=== PATIENT | female | born 1955 | race Caucasian/White ===

== ENCOUNTER → 2016-07-21 | Outpatient (CLI) | payer OTHER ==
[~2016-07-21] MED LIST: BISO5TAB5 PO; CLAR10CA3 PO; COUM2.5T11 PO; LISI-542 PO; LYRI75CA PO; NASA1SPR; OMEP40CA2 PO; PERC5TAB6 PO; TYLE325T5 PO
[2016-07-21 18:21] LABS: ANION GAP 10 MEQ/L (8-16); BLOOD UREA NITROGEN 12 MG/DL (7-18); CALCIUM LEVEL 9.7 MG/DL (8.5-10.1); CARBON DIOXIDE LEVEL 28 MEQ/L (21-32); CHLORIDE LEVEL 101 MEQ/L (98-107); CREATININE FOR GFR 0.74 MG/DL (0.55-1.02); GLOMERULAR FILTRATION RATE > 60.0 (>51); GLUCOSE, FASTING 109 MG/DL (70-105); POTASSIUM SERUM 4.6 MEQ/L (3.5-5.1); SODIUM LEVEL 139 MEQ/L (136-145)
== END ==
LOC: M SMT 14:06
PROVIDERS: ATTEND Nurse Practitioner Family
DX: I10 Essential (primary) hypertension (principal)

== ENCOUNTER → 2016-08-09 | Outpatient (CLI) | payer OTHER ==
--- NOTE | 2016-08-09 15:21 | REP ---
Clinical: Lung screening. History smoking. Comparison: None Technique: Axial low-dose noncontrast images from the thoracic inlet to the upper abdomen using lung screening technique. Findings: The lung feliciano are well-aerated. There is a 9.0 mm solid nodule in the left lower lobe (image [id number]). Remainder of lung feliciano are relatively well aerated and clear. No pleural effusion/reaction or pneumothorax. Tracheobronchial tree is patent. Mediastinum demonstrates minimal atherosclerotic changes of the coronary arteries without cardiomegaly. Impression: Lung-RADS category 4A. There is a 9 mm solid nodule in the left lower lobe. Suggestions for management include 3-month follow-up and/or PET-CT. Signed by Jay Paredes MD 08/09/2016 03:13 P
== END ==
LOC: M RAD 14:14
PROVIDERS: ATTEND Nurse Practitioner Family
DX: Z87.891 Personal history of nicotine dependence (principal)

== ENCOUNTER → 2016-08-11 | Outpatient (REF) | payer OTHER ==
[2016-08-11 15:25] LABS: INR 1.02
== END ==
LOC: M LAB REF 14:11
PROVIDERS: ATTEND Internal Medicine Pulmonary Disease
DX: R91.1 Solitary pulmonary nodule (principal); Z01.812 Encounter for preprocedural laboratory examination

== ENCOUNTER 2016-08-25 07:57 | Inpatient (IN) | payer OTHER ==
[~2016-08-25] VITALS: Ht 162.6 cm; Wt 101.4 kg
[2016-08-25] VITALS (7 sets, daily range): BP systolic 110–132; BP diastolic 53–61
[2016-08-25] MEDS ORDERED: LIDOCAINE 1% MDV 20ML VIAL As Ordered ONE ×2 (08:42→10:51)
[2016-08-25] MEDS: MOM 30ML SUSPENSION UDC PO SCH (09:00)
[2016-08-25] MEDS ORDERED: MORPHINE 10 MG/ML 1ML VIAL As Ordered ONE (10:23)
[2016-08-25] MEDS ORDERED: MORPHINE 2 MG/ML 1ML SYRINGE IV ONE (10:23)
[2016-08-25] MEDS ORDERED: ONDANSETRON 4MG/2ML VIAL (J2405) As Ordered ONE (10:31)
[2016-08-25] MEDS ORDERED: ONDANSETRON 4MG/2ML VIAL (J2405) IV ONE (10:31)
[2016-08-25] MEDS ORDERED: MIDAZOLAM INJ 2 MG/2 ML VIAL (J2250) As Ordered ONE ×2 (10:37→10:42)
[2016-08-25] MEDS ORDERED: KETOROLAC 30 MG/ML VIAL (J1885) As Ordered ONE (11:00)
--- NOTE | 2016-08-25 13:30 | REP ---
POST BIOPSY CHEST: Single view of the chest is performed. The patient is status post left lung biopsy. There is a fairly large left pneumothorax. The air gap at the apex is 5 cm. Signed by Titi Horn MD 08/26/2016 03:14 P
[2016-08-25] MEDS ORDERED: BISACODYL 10 MG SUPP PR PRN (13:45)
[2016-08-25] MEDS ORDERED: LEVALBUTEROL 1.25 MG/0.5 ML CONCENTRATE NEB NEB PRN (13:45)
[2016-08-25] MEDS ORDERED: ACETAMINOPHEN TAB 650MG DOSE (2X325MG) PO PRN (13:45)
[2016-08-25] MEDS ORDERED: ONDANSETRON 4MG/2ML VIAL (J2405) IV PRN (13:45)
[2016-08-25] MEDS ORDERED: NORCO, ANEXSIA 5/325MG TABLET (HYDROcodone/ACETAMINOPHEN) PO PRN (13:45)
[2016-08-25] MEDS: LEVALBUTEROL 1.25 MG/0.5 ML CONCENTRATE NEB NEB SCH ×2 (14:00→19:15)
[2016-08-25] MEDS ORDERED: AZEL0.1S3 (14:08)
[2016-08-25] MEDS ORDERED: LISI10TA4 PO (14:08)
[2016-08-25] MEDS ORDERED: DRIS50002 PO (14:09)
[2016-08-25] MEDS ORDERED: CALC0.009 TOP (14:11)
[2016-08-25] MEDS ORDERED: CLOB0.77 TOP (14:11)
[2016-08-25] MEDS ORDERED: CLOB-24 TOP (14:11)
[2016-08-25] MEDS: PERCOCET 5MG/325MG TAB PO PRN ×2 (14:20→20:42)
--- NOTE | 2016-08-25 14:33 | REP ---
Portable chest: Single view. History: Postoperative. CT biopsy. Post chest tube insertion. Comparison study: August 25, 2016 at 10:14 a.m. Findings: The left-sided pneumothorax has resolved post left chest tube placement. The left chest tube is seen in the upper lung zone region. There is no visible pneumothorax. No hydrothorax is seen. Heart size is normal. EKG electrodes are seen. Impression: Left-sided pneumothorax is resolved post left chest tube placement. Signed by Mohan Hsu MD 08/25/2016 03:43 P
--- NOTE | 2016-08-25 16:35 | REP ---
CT GUIDED LEFT LOWER LOBE LUNG BIOPSY: The procedure was performed under the direct supervision of Dr. Horn. The patient has a history of a 9 mm solid nodule in the left lower lobe seen on a previous CAT scan dated 07/20/2016. The risks and benefits of the procedure were explained to the patient and informed consent was obtained. The left lower lobe lung nodule was localized using CT guidance. The skin was prepped and draped in a sterile fashion. 1% Xylocaine was used as a local anesthetic. Using CT guidance a 19/20-gauge coaxial needle biopsy system was inserted and advanced to the nodule. The patient developed a left pneumothorax. The nodule fell away from the needle and therefore a biopsy sample was not able to be obtained. As much air as possible was aspirated from the pleural space. The patient was placed on 2 liters of oxygen via nasal cannula. Followup CT images show some improvement in the pneumothorax. The patient did complain of pain at a level of 9/10. Her oxygen saturation was 98% before being placed on oxygen and were 100% after being placed on 2 liters of oxygen. A single view PA expiration chest x-ray was performed immediately after the procedure shows a fairly large left pneumothorax. Dr. Cardoso was consulted. Dr. Cardoso came to the department and placed a chest tube into the patient. The patient was then admitted under Dr. Cardoso's care. Reviewed by FEDERICO Disla 08/25/2016 05:05 PEdited and Signed by Titi Horn MD 08/26/2016 03:31 P
[2016-08-25 16:53] LABS: MEAN CORPUSCULAR HEMOGLOBIN 28.1 pg (27.0-33.0); MEAN CORPUSCULAR HGB CONC 33.2 g/dl (32.0-36.5); MEAN CORPUSCULAR VOLUME 84.6 fl (80.0-96.0); RED CELL DISTRIBUTION WIDTH 13.6 % (11.5-14.5); WHITE BLOOD COUNT 10.2 K/mm3 (4.0-10.0)
[2016-08-25] MEDS: KETOROLAC 30 MG/ML VIAL (J1885) IV SCH (17:06)
[2016-08-25 17:23] LABS: ANION GAP 7 MEQ/L (8-16); BLOOD UREA NITROGEN 10 MG/DL (7-18); CALCIUM LEVEL 8.8 MG/DL (8.5-10.1); CARBON DIOXIDE LEVEL 27 MEQ/L (21-32); CHLORIDE LEVEL 105 MEQ/L (98-107); CREATININE FOR GFR 0.74 MG/DL (0.55-1.02); GLOMERULAR FILTRATION RATE > 60.0 (>51); GLUCOSE, FASTING 128 MG/DL (70-105); POTASSIUM SERUM 4.2 MEQ/L (3.5-5.1); SODIUM LEVEL 139 MEQ/L (136-145)
[2016-08-25] MEDS: DOCUSATE SODIUM 100 MG CAP PO SCH (20:40)
[2016-08-25] MEDS: HEPARIN SOD (PORCINE) 5000 UNITS/ML VIAL SC SCH (20:41)
--- NOTE | 2016-08-25 21:07 | HPE ---
DATE OF ADMISSION: 08/25/2016 Patient seen at the urgent request of x-ray for a pneumothorax status post a lung needle biopsy. HISTORY OF THE PRESENT ILLNESS: This is a 61-year-old white female who underwent a low dose screening early lung cancer detection CT scan and was found to have a 1 cm nodule in the left lower lobe. Had she not undergone the low dose CT screening, she would not have known that there was a nodule within her chest. She does not complain of chest pain or chest discomfort. There has been no cough, no sputum production, and no fevers, chills or sweats. She has lost 25 pounds and trying to do so over the past year. There is no dysphagia, and there is no shortness of breath. She is able to do all the daily activities of daily living, including shopping without getting short of breath. She can also climb a flight of stairs. She is a former smoker, having quit approximately 11 years ago. A chest tube was immediately placed secondary to her shortness of breath and chest discomfort. History and physical is being done after the chest tube was placed. PAST MEDICAL ILLNESSES: Hypertension. Gastroesophageal reflux disease. Seasonal allergies. Psoriasis. PAST SURGERIES: Bilateral carpal tunnels. Left knee replacement. Hysterectomy in the remote past. MEDICATIONS AT HOME: - azelastine nasal spray, two sprays each naris daily - calcipotriene topical nightly to her psoriatic lesions - lisinopril 10 mg daily - ranitidine 10 mg as needed for congestion - omeprazole 40 mg daily - vitamin D 50,000 units every week ALLERGIES: AMOXICILLIN causes nausea. MELOXICAM causing hypertension. PENICILLIN causing hives. TRAVEL HISTORY: She has traveled to [place]. No travel to the [facility] or foreign travel. 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 No asbestos exposure that she knows of. EXPOSURES: No dogs, cats or birds at home. She did have two dogs, which are now - a Husky and a Black Lab. HABITS: Smoked 1 to 1-1/2 packs a day of [employer] for over 30 years. Drinks only very occasionally. No illicit drugs. FAMILY HISTORY: Father of a myocardial infarction prior to her . Mother is alive at 89, who has had breast cancer and hypertension. REVIEW OF SYSTEMS: CONSTITUTIONAL: See history of the present illness. Without fevers, chills, sweats or night sweats NOSE: Without epistaxis. MOUTH: Has her own teeth. RESPIRATORY: See history of the present illness. CARDIAC: Without prior myocardial infarctions. Without true orthopnea or paroxysmal nocturnal dyspnea, although she does sleep with the head of her bed elevated for comfort. She does not become short of breath lying flat. Without tachycardia, palpitations or intermittent claudication, or peripheral edema. GASTROINTESTINAL: Without nausea, vomiting, diarrhea, constipation, melena, hematochezia, hematemesis or abdominal pain. NEUROLOGIC: Without paresthesias, paralyses or prior seizures. ENDOCRINE: Without diabetes. Without thyroid disease. HEMATOLOGIC: Without prolonged bleeding times. GENITOURINARY: Without dysuria, hematuria or prior renal stones. PSYCHIATRIC: Without pathological anxieties, depressions or psychoses. PHYSICAL EXAMINATION: Well-developed, well-nourished white female in acute distress with shortness of breath and pain. Temperature is 99.9 with a heart rate of 90 and is sinus rhythm, respiratory rate of 16 after placement of the chest tubes, who is now 100% saturated on 2 liters nasal cannula, and whose blood pressure is 122/60. EYES: Pupils equal, round and reactive to light. Extraocular muscles are intact. Sclerae nonicteric. NOSE: Without deformity. MOUTH: Shows her mucous membranes to be pink and moist. Lips and commissures without lesions. There is no thrush. Teeth are in good repair. HEAD: Normocephalic. NECK: Supple. There is no jugular venous distention. No subcutaneous emphysema. Trachea is midline. There is no lymphadenopathy or thyromegaly. LUNGS: Show markedly decreased breath sounds with wheezing on the left side prior to chest tube insertion and show normal vesicular sounds after the chest tube insertion. Percussion note is full to the diaphragm. CARDIAC EXAM: Without murmurs, clicks, gallops or rubs. I cannot feel her point of maximum impulse (PMI). S1, S2 normal. ABDOMEN: Soft, nontender. Bowel sounds are positive. There is no hepatomegaly. No costovertebral angle tenderness. EXTREMITIES: Show no pretibial edema. No calf tenderness. No differential swelling of the upper extremities. SKIN: Warm, dry and perfused without cyanosis or mottling, including that of the nail beds and the knees. NEUROLOGIC: Shows II-XII intact along with gross motor and gross sensation intact. Gait is not tested. PSYCHIATRIC: Shows her to be awake and alert, oriented times three with appropriate mood and affect and conversational. Her chest x-ray taken post-biopsy shows a 30-40% pneumothorax with a 5 cm separation from the chest wall. CT done on 08/09/2016 shows the 1 cm spiculated mass in the left lower lobe, She has numerous emphysematous changes throughout, particularly in the upper lobes. There is no pericardial effusion. There is no lymphadenopathy. Adrenals have a normal configuration as does the liver. CBC and electrolytes are pending. IMPRESSION: 1. Pneumothorax, status post lung biopsy. 2. Spiculated left lower lobe mass. 3. Psoriasis. 4. Hypertension. 5. Gastroesophageal reflux disease. PLAN AND DISCUSSION: I have already placed a chest tube. Will monitor for an air leak. I have spoken to x-ray and the lesion was not entered. Therefore, we will try again, now with her lung protected by chest tube. I will order that tomorrow. I will keep her on suction throughout the night and throughout her lung biopsy.
[2016-08-26] VITALS (13 sets, daily range): BP systolic 112–148; BP diastolic 53–81
[2016-08-26] MEDS: KETOROLAC 30 MG/ML VIAL (J1885) IV SCH ×4 (00:12→18:07)
[2016-08-26] MEDS: PERCOCET 5MG/325MG TAB PO PRN ×2 (00:14→20:44)
[2016-08-26] MEDS: LEVALBUTEROL 1.25 MG/0.5 ML CONCENTRATE NEB NEB SCH ×4 (02:00→21:02)
[2016-08-26 06:02] LABS: BASO % 0.2 % (0.0-1.0); EOS # 0.1 K/mm3 (0.0-0.50); EOS % 1.3 % (0.0-3.0); LARGE UNSTAINED CELL # 0.1 K/mm3 (0.0-0.4); LARGE UNSTAINED CELL % 1.2 % (0.0-4.0); LYMPH # 2.1 K/mm3 (1.5-4.5); LYMPH % 25.8 % (24.0-44.0); MEAN CORPUSCULAR HEMOGLOBIN 27.9 pg (27.0-33.0); MEAN CORPUSCULAR HGB CONC 32.4 g/dl (32.0-36.5); MONO # 0.4 K/mm3 (0.0-0.8); MONO % 4.9 % (0.0-5.0); NEUTROPHILS # 5.2 K/mm3 (1.8-7.7); NEUTROPHILS % 66.6 % (36.0-66.0); PLATELET COUNT, AUTOMATED 281 k/mm3 (150-450); RED CELL DISTRIBUTION WIDTH 13.7 % (11.5-14.5); WHITE BLOOD COUNT 7.8 K/mm3 (4.0-10.0)
[2016-08-26 06:10] LABS: ANION GAP 8 MEQ/L (8-16); BLOOD UREA NITROGEN 13 MG/DL (7-18); CALCIUM LEVEL 8.3 MG/DL (8.5-10.1); CARBON DIOXIDE LEVEL 27 MEQ/L (21-32); CHLORIDE LEVEL 104 MEQ/L (98-107); CREATININE FOR GFR 0.74 MG/DL (0.55-1.02); GLOMERULAR FILTRATION RATE > 60.0 (>51); GLUCOSE, FASTING 123 MG/DL (70-105); POTASSIUM SERUM 4.2 MEQ/L (3.5-5.1); SODIUM LEVEL 139 MEQ/L (136-145)
--- NOTE | 2016-08-26 08:36 | RO ---
DATE OF PROCEDURE: 08/25/2016 PREPROCEDURE DIAGNOSIS: Acute left pneumothorax. POSTPROCEDURE DIAGNOSIS: Acute left pneumothorax. PROCEDURE: Insertion of left anterior chest tube. SURGEON: Azam Cardoso MD LOSS PREVENTION CONSULTANT: ANESTHESIA: DESCRIPTION OF PROCEDURE: Under satisfactory moderate sedation achieved with 4 mg of Versed, the patient was prepped and draped in the usual sterile fashion. The subcutaneous tissue and intrathoracic muscles along with pleura were infiltrated with 1% xylocaine. A tunnel was created into the second intercostal space. A #20 chest tube was placed. The chest tube was secured to the chest wall with a #2 Tevdek suture. The chest tube was connected to the Pleur-evac. The patient tolerated the procedure well, and a chest x-ray is pending.
--- NOTE | 2016-08-26 08:52 | REP ---
Chest x-ray: Three views. History: Pneumothorax follow-up. Comparison study August 25, 2016. Findings: Left pleural chest tube remains in place superolaterally. There is no visible pneumothorax. Lung feliciano remain otherwise clear. Heart is not enlarged. Pleural angles are sharp. EKG monitoring electrodes overlie the chest. Impression: Left chest tube remains in place. No visible pneumothorax. Otherwise no acute disease seen. Signed by Mohan Hsu MD 08/26/2016 11:22 A
[2016-08-26] MEDS ORDERED: BISOPROLOL FUMARATE 5 MG TAB PO SCH (09:00)
[2016-08-26] MEDS ORDERED: PANTOPRAZOLE 40MG TAB (PROTONIX) PO SCH (09:00)
[2016-08-26] MEDS: DOCUSATE SODIUM 100 MG CAP PO SCH ×2 (09:00→20:44)
[2016-08-26] MEDS: MOM 30ML SUSPENSION UDC PO SCH (09:00)
[2016-08-26] MEDS: HEPARIN SOD (PORCINE) 5000 UNITS/ML VIAL SC SCH ×2 (09:00→20:45)
[2016-08-26] MEDS: PANTOPRAZOLE 40MG INJ (PROTONIX) (C9113) IV SCH (09:15)
[2016-08-26] MEDS: LISINOPRIL 10 MG TAB PO SCH (09:15)
[2016-08-26] MEDS ORDERED: SODIUM CHLORIDE NASAL 0.65% SPRAY BTL (OCEAN) PRN (09:45)
[2016-08-26] MEDS ORDERED: ALPRAZolam 0.25 MG TAB PO ONE (11:30)
[2016-08-26] MEDS ORDERED: LIDOCAINE 1% MDV 20ML VIAL As Ordered ONE (12:31)
--- NOTE | 2016-08-26 16:42 | REP ---
CT GUIDED LEFT LOWER LOBE LUNG BIOPSY: The procedure was performed under the direct supervision of Dr. Horn. The risks and benefits of the procedure were explained to the patient and informed consent was obtained. The patient has a history of a 9 mm solid nodule in the left lower lobe seen on a previous CAT scan dated 07/20/2016. An attempt was made to biopsy the nodule on 08/25/2016, however the patient developed a pneumothorax and the biopsy was not able to be obtained. Dr. Cardoso inserted the chest tube and referred the patient today for rebiopsy. The risks and benefits of the procedure were explained to the patient and informed consent was obtained. The left lower lobe lung nodule was localized using CT guidance. The skin was prepped and draped in a sterile fashion. 1% Xylocaine was used as a local anesthetic. Using CT guidance a 19/20-gauge coaxial needle biopsy system was inserted and then advanced into the nodule. 4 core biopsy samples were obtained and sent to the lab. The patient tolerated the procedure well and there were no immediate complications. Reviewed by FEDERICO Disla 08/26/2016 04:52 PEdited and Signed by Titi Horn MD 08/26/2016 04:57 P
--- NOTE | 2016-08-26 19:02 | IPN ---
DATE: 08/26/2016 Ms. Jaramillo is rather anxious this morning. We are planning to send her back down for a repeat needle biopsy with run being protected by the chest tube. Pain at chest tube site is being well controlled. VITAL SIGNS: Show a maximum temperature (T-max) of 98.0, with a heart rate that ranges between 85 and 91 in a sinus rhythm. Respiratory rate of 18-20 without the use of accessory muscles who is 98-96% saturated on room air. Blood pressure ranges between 127/58 to 148/78. Her intake and output over the past 24 hours has been recorded as 1045 in and 583 out for a positivity of 462 mL. She has put out 8 mL in the chest tube and there is no air leak. Weight today is 101.3 kg compared to 99.9 kg yesterday. PHYSICAL EXAMINATION: LUNGS: Breath sounds are equal on both sides. I hear no wheezes, rhonchi, or rales. Percussion note is full to the diaphragm. CARDIAC EXAMINATION: Is without murmurs, clicks, gallops, or rubs. I cannot feel her point of maximal impulse (PMI). S1, S2 are normal. ABDOMEN: Is soft, nontender. Bowel sounds are positive. There is no hepatomegaly. No costovertebral angle (CVA) tenderness. EXTREMITIES: Show no pretibial edema. No calf tenderness. No differential swelling of the upper extremities. SKIN: Is warm, dry, and perfused without cyanosis or mottling, including that of the nail beds and the knees. NECK: Is supple. There is no jugular venous distention. No subcutaneous emphysema. Tracheostomy is midline. MOUTH: Shows her mucous membranes to be pink and moist. Lips without commissure or lesions. There is no thrush. EYES: Show her pupils to be equal and reactive. Extraocular muscles intact. Sclerae nonicteric. NEUROLOGIC: Shows II-XII intact. Normal gross motor and gross sensation. Gait is not tested. PSYCHIATRIC: Shows her to be awake and alert, oriented times three with appropriate mood and affect and conversational but quite anxious regarding her upcoming biopsy. LABORATORY DATA: Her white count is 7.8 today with hemoglobin and hematocrit of 12.4 and 38.2 which is essentially unchanged from yesterday. Platelet count of 281 and stable. Differential shows 66% neutrophils, 25% lymphocytes, 4% monocytes. There are no immature forms. No toxic granulations. Electrolytes are normal with BUN and creatinine of 13 and 0.74, with a glucose of 123 and a calcium of 8.3. She still remains on Toradol. Her chest x-ray done today done PA and lateral shows her lung fully expanded to the chest wall. Chest tube is in good place. There is no subcutaneous emphysema. There are no infiltrates on the PA or lateral views and the costophrenic angles on the posterior films are sharp. IMPRESSION: 1. Pneumothorax status-post lung biopsy. 2. Spiculated left lower lobe mass. 3. Psoriasis. 4. Hypertension. 5. Gastroesophageal reflux disease. PLAN AND DISCUSSION: We will send her back down to x-ray today for a repeat biopsy. She should be safe in that she is protected by a chest tube. We will keep the chest tube with suction for the biopsy itself so that the lesion will not fall away from the needle. I will continue to follow her over the next couple of days and when there is no air leak I will remove her tubes and send her home.
[2016-08-27] MEDS: KETOROLAC 30 MG/ML VIAL (J1885) IV SCH ×3 (00:08→12:29)
[2016-08-27] MEDS: LEVALBUTEROL 1.25 MG/0.5 ML CONCENTRATE NEB NEB SCH ×3 (02:19→13:28)
[2016-08-27 04:45] VITALS: BP 153/74
[2016-08-27 05:32] LABS: BASO % 0.2 % (0.0-1.0); EOS # 0.2 K/mm3 (0.0-0.50); EOS % 2.5 % (0.0-3.0); LARGE UNSTAINED CELL # 0.1 K/mm3 (0.0-0.4); LARGE UNSTAINED CELL % 1.5 % (0.0-4.0); LYMPH # 2.1 K/mm3 (1.5-4.5); LYMPH % 24.3 % (24.0-44.0); MEAN CORPUSCULAR HGB CONC 32.4 g/dl (32.0-36.5); MEAN CORPUSCULAR VOLUME 86.6 fl (80.0-96.0); MONO # 0.5 K/mm3 (0.0-0.8); MONO % 5.4 % (0.0-5.0); NEUTROPHILS # 5.6 K/mm3 (1.8-7.7); NEUTROPHILS % 66.1 % (36.0-66.0); PLATELET COUNT, AUTOMATED 282 k/mm3 (150-450); RED CELL DISTRIBUTION WIDTH 13.7 % (11.5-14.5); WHITE BLOOD COUNT 8.4 K/mm3 (4.0-10.0)
[2016-08-27 05:47] LABS: ANION GAP 7 MEQ/L (8-16); BLOOD UREA NITROGEN 13 MG/DL (7-18); CALCIUM LEVEL 8.5 MG/DL (8.5-10.1); CARBON DIOXIDE LEVEL 28 MEQ/L (21-32); CHLORIDE LEVEL 104 MEQ/L (98-107); CREATININE FOR GFR 0.73 MG/DL (0.55-1.02); GLOMERULAR FILTRATION RATE > 60.0 (>51); GLUCOSE, FASTING 119 MG/DL (70-105); SODIUM LEVEL 139 MEQ/L (136-145)
[2016-08-27 08:00] VITALS: BP 150/68
[2016-08-27] MEDS: DOCUSATE SODIUM 100 MG CAP PO SCH (09:00)
[2016-08-27] MEDS: MOM 30ML SUSPENSION UDC PO SCH (09:00)
--- NOTE | 2016-08-27 09:34 | REP ---
REASON: Pneumothorax. Followup. COMPARISON: 08/26/2016 Left-sided thoracotomy tube unchanged. Cardiomediastinal silhouette unchanged. The lung feliciano unchanged. The imaged osseous structures unchanged. IMPRESSION: No change. Signed by Adair Viveros DO 08/27/2016 10:19 A
[2016-08-27 09:38] VITALS: BP 150/68
[2016-08-27] MEDS: LISINOPRIL 10 MG TAB PO SCH (09:38)
[2016-08-27] MEDS: HEPARIN SOD (PORCINE) 5000 UNITS/ML VIAL SC SCH (09:39)
[2016-08-27] MEDS: PERCOCET 5MG/325MG TAB PO PRN (09:40)
[2016-08-27] MEDS: PANTOPRAZOLE 40MG INJ (PROTONIX) (C9113) IV SCH (09:40)
[2016-08-27 12:00] VITALS: BP 146/68
[2016-08-27 16:00] VITALS: BP 148/63
--- NOTE | 2016-08-28 08:48 | REP ---
Status post lung biopsy, chest pain, possible pneumothorax. COMPARISON: Earlier the same day. The left-sided thoracotomy tube has been removed. There is no recurrent pneumothorax. The lung feliciano are clear and the heart is not enlarged. The osseous structures are stable. IMPRESSION: Removal of chest tube, no pneumothorax. Signed by Adair Viveros DO 08/28/2016 08:51 A
--- NOTE | 2016-08-29 08:30 | IPN ---
DATE: 08/27/2016 Ms. Jaramillo underwent her repeat needle biopsy yesterday. Radiology reported to me that they got good cores. Today she has no air leak and her lung is fully expanded to the chest wall. Her pain is being well controlled at the chest tube insertion site. She is not complaining of shortness of breath. Her vital signs show a T-max of 99.6 with a heart rate that ranges between 100 and 95 in a sinus rhythm, respiratory rate that is constant at 18 who is 99 to 97% saturated on room air and has blood pressures ranging between 150/68 to 153/74. Intake and output over the past 24 hours has been recorded as 2340 in and 2326 out for near equality. She has put out 1 mL from the chest tube and there is no air leak. Weight today is 101.4 kg compared to 101.3 kg yesterday. On physical examination, she has equal breath sounds on either side. I hear no wheezes, rhonchi or rales. Percussion note is full to the diaphragm. Cardiac exam is without murmurs, clicks, gallops or rubs. I cannot feel her PMI. S1 and S2 are normal. Abdomen is soft, nontender, bowel sounds are positive. There is no hepatomegaly. No CVA tenderness. Extremities show no pretibial edema. No calf tenderness. No differential swelling of the upper extremities. Skin is warm, dry and perfused without cyanosis or mottling including that of the nail beds and knees. Neck is supple. There is no jugular venous distention. No subcutaneous emphysema. Trachea is midline. Mouth shows her mucous membranes to be pink and moist. Lips and commissures are without lesions. No thrush. Eyes show her pupils to be equal and reactive. Extraocular motor intact. Sclera anicteric. Neuro shows II through XII intact with gross motor and gross sensation intact. Gait is also intact. Psychiatric shows her to be awake and alert, oriented times three with appropriate mood and affect and conversational. Her white count today is 8.4 with hemoglobin and hematocrit of 12.6 and 39.0. Platelet count is 282. Differential shows 66% neutrophils, 24% lymphocytes, 5% monocytes. There are no immature forms. No toxic granulations. Her electrolytes are normal today with BUN and creatinine of 13 and 0.73, glucose of 119 and a calcium of 8.5. Her chest x-ray today shows her lung fully expanded to the chest wall. Costophrenic angles are sharp. There is no subcutaneous emphysema. Chest tube is in good place. IMPRESSION: 1. Pneumothorax status post lung biopsy. 2. Spiculated left lower lobe mass, pathology pending. 3. Psoriasis. 4. Hypertension. 5. Gastroesophageal reflux disease. PLAN AND DISCUSSION: I will discontinue her chest tube today. I will take a chest x-ray in 6 hours. If chest x-ray is okay with lung fully expanded to the chest wall, I will discharge her later today.
--- NOTE | 2016-09-12 07:36 | DSES ---
DATE OF ADMISSION: 08/25/2016 DATE OF DISCHARGE: 08/27/2016 DISCHARGE DIAGNOSES: 1. Solitary pulmonary nodule. 2. Carcinoid tumor. 3. Pneumothorax. 4. Hypertension. 5. Psoriasis. 6. Gastroesophageal reflux disease. HOSPITAL COURSE: The patient is a 61-year-old white female who underwent a low dose screening early lung cancer detection CT and was found to have a 1 cm nodule in the left lower lobe. If she had not undergone the CT, she would not have known that there was a nodule in her chest. She did not complain of pain or discomfort and there has been no cough. No sputum production. No fevers, chills or sweats. She has lost 25 pounds in the past year trying to do so. There is no dysphagia and no shortness of breath. She was seen at the request of x-ray after a sustaining a pneumothorax after a lung biopsy with sudden onset of moderately severe shortness of breath. A chest tube was immediately placed in x-ray with relief of her shortness of breath. On the first hospital day, she was then sent back to x-ray for repeat needle biopsy with a chest tube in place protecting the lung from pneumothorax. The first biopsy did not obtain any tissue as the lung immediately fell away. The second biopsy was successful. It was returned as a carcinoid tumor. On the second hospital day, there was no air leak and the chest tube was removed, and she was sent home after a 6-hour interval with a followup chest x-ray which showed the lung completely expanded to the chest wall. She is being discharged on her home medications, which include: - azelastine nasal spray - calcipotriene topical nightly - clobetasol topical nightly - lisinopril 10 mg daily - Claritin 10 mg as needed congestion - omeprazole 40 mg daily - vitamin D 50,000 units per week She will return to see me in followup in 1 week. Her discharge hemoglobin and hematocrit are 12.6 and 39.0 with a discharge white count of 8.4 with normal electrolytes and a BUN and creatinine of 13 and 0.73.
== END 2016-08-27 20:43 | disposition home or self-care (01) | DRG 200 ==
LOC: M RADPRO 07:57 → M ICU 11:58 → M PCU 08-26 00:55
PROVIDERS: ADMIT Thoracic Surgery (Cardiothoracic Vascular Surgery); ATTEND Thoracic Surgery (Cardiothoracic Vascular Surgery)
PROC: 0W9B30Z Drainage of Left Pleural Cavity with Drainage Device, Percutaneous Approach (ICD-10-PCS; principal; 2016-08-25)
PROC: 0BBJ3ZX Excision of Left Lower Lung Lobe, Percutaneous Approach, Diagnostic (ICD-10-PCS; 2016-08-25)
PROC: 0BBJ3ZX Excision of Left Lower Lung Lobe, Percutaneous Approach, Diagnostic (ICD-10-PCS; 2016-08-26)
DX: J95.811 Postprocedural pneumothorax (principal); C34.30 Malignant neoplasm of lower lobe, unspecified bronchus or lung; R91.8 Other nonspecific abnormal finding of lung field; I10 Essential (primary) hypertension; K21.9 Gastro-esophageal reflux disease without esophagitis; L40.8 Other psoriasis; Z79.899 Other long term (current) drug therapy; Z88.0 Allergy status to penicillin; Z88.8 Allergy status to other drugs, medicaments and biological substances

== ENCOUNTER → 2016-08-31 | Outpatient (CLI) | payer OTHER ==
[~2016-08-31] MED LIST changes: +AZEL0.1S3; +CALC0.009 TOP; +CLOB-24 TOP; +CLOB0.77 TOP; +DRIS50002 PO; +LISI10TA4 PO
--- NOTE | 2016-08-31 16:35 | REP ---
PET/CT: History: Voluntary pulmonary nodule. Comparison chest CT study August 09, 2016. A 9 mm solid nodule in the left lower lobe. CT guided needle biopsy August 26, 2016 favors carcinoid tumor. TECHNIQUE: 46 minutes following the intravenous injection of a 9.8 mCi dose of F-18 FDG, three-dimensional PET scintigraphy is acquired from the skull base to the proximal thighs. Triplanar noncontrast CT scanning is acquired through the same anatomic range for attenuation correction, and image registration with scan parameters optimized to minimize radiation exposure to the patient. PET scintigraphy and CT datasets were fused and displayed on a workstation with multiplanar and projection display capability. PET/CT Findings: The known small 9 mm nodule in the left lower lobe is not hypermetabolic. Maximum standard uptake value in this nodule is 1.0. It should be kept in mind that the nodule is small. No other abnormal hypermetabolic uptake is seen within the chest. Head and neck uptake is unremarkable. There is normal variant skeletal muscle uptake adjacent to one of the upper ribs and pectoralis minus muscle on the left. This is not felt to be significant. In the abdomen and pelvis, there is normal distribution of FDG. No abnormal hypermetabolic uptake is seen within the abdomen or pelvis. Impression: The known left lower lobe nodule is not hypermetabolic. Otherwise unremarkable FDG PET/CT study. Signed by Mohan Hsu MD 08/31/2016 05:06 P
== END ==
LOC: M RAD 08:07
PROVIDERS: ATTEND Internal Medicine Pulmonary Disease
DX: R91.8 Other nonspecific abnormal finding of lung field (principal)

== ENCOUNTER → 2016-09-01 | Outpatient (CLI) | payer OTHER ==
--- NOTE | 2016-09-01 10:59 | REP ---
Chest x-ray: Two views. History: Pneumothorax. . Comparison study: August 27, 2016 . Findings: The lungs are well inflated and free of infiltrate. The pleural angles are sharp. The heart size is normal. Pulmonary vasculature is not increased. No significant bony abnormality is seen. Impression: Negative chest x-ray. No pneumothorax visible. Signed by Mohan Hsu MD 09/01/2016 10:52 A
== END ==
LOC: M SMT 08:09
PROVIDERS: ATTEND Thoracic Surgery (Cardiothoracic Vascular Surgery)
DX: J93.83 Other pneumothorax (principal)

== ENCOUNTER → 2016-09-07 | Outpatient (CLI) | payer OTHER ==
[2016-09-07 10:34] LABS: ABG BASE EXCESS -0.3 (-2.0-2.0); ABG HCO3 22.2 MEQ/L (22.0-26.0); ABG PARTIAL PRESSURE CO2 30.9 mmHg (35.0-45.0); ABG PARTIAL PRESSURE O2 123.6 mmHg (75.0-100.0); ABG STANDARD HCO3 24.3 MEQ/L (22.0-26.0); ABG TOTAL CO2 23.2 MEQ/L (22.0-29.0); ABG pH (ARTERIAL) 7.475 UNITS (7.350-7.450)
[2016-09-07 10:51] LABS: MEAN CORPUSCULAR HEMOGLOBIN 28.1 pg (27.0-33.0); MEAN CORPUSCULAR HGB CONC 32.7 g/dl (32.0-36.5); RED CELL DISTRIBUTION WIDTH 13.7 % (11.5-14.5); WHITE BLOOD COUNT 7.8 K/mm3 (4.0-10.0)
[2016-09-07 11:06] LABS: ANION GAP 8 MEQ/L (8-16); BLOOD UREA NITROGEN 10 MG/DL (7-18); CALCIUM LEVEL 9.2 MG/DL (8.5-10.1); CARBON DIOXIDE LEVEL 28 MEQ/L (21-32); CHLORIDE LEVEL 102 MEQ/L (98-107); CREATININE FOR GFR 0.72 MG/DL (0.55-1.02); GLOMERULAR FILTRATION RATE > 60.0 (>51); GLUCOSE, FASTING 108 MG/DL (70-105); POTASSIUM SERUM 4.4 MEQ/L (3.5-5.1); SODIUM LEVEL 138 MEQ/L (136-145)
[2016-09-07 11:08] LABS: INR 1.06
--- NOTE | 2016-09-07 11:16 | REP ---
Chest two views HISTORY: Left lower lobe lung carcinoma Comparison: 09/01/2016 The lungs are clear. The heart is normal in size. The pulmonary vasculature is normal in appearance. The bony structure is intact. IMPRESSION: No acute disease. Signed by Allan Mendiola MD 09/07/2016 11:07 A
--- NOTE | 2016-09-08 15:59 | ECGEPIP ---
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
== END ==
LOC: M ADMPAT 09:28 → EDSTATUS 09:30
PROVIDERS: ATTEND Thoracic Surgery (Cardiothoracic Vascular Surgery)
DX: C34.32 Malignant neoplasm of lower lobe, left bronchus or lung (principal)

== ENCOUNTER 2016-09-12 07:17 | Inpatient (IN) | payer OTHER ==
[2016-09-07 10:23] VITALS: BP 128/78
[2016-09-12] VITALS (11 sets, daily range): BP systolic 117–157; BP diastolic 56–77; O2SAT 97–99
[~2016-09-12] VITALS: Ht 162.6 cm; Wt 102.5 kg
[2016-09-12] MEDS ORDERED: LR 1,000 ML IV SCH ×2 (07:30→13:30)
[2016-09-12] MEDS ORDERED: VANCOMYCIN HCL 1,000 MG, VIAL MATE ADAPTER 1 EACH in D5W 250 ML IV ONE (07:30)
[2016-09-12] MEDS ORDERED: MUPIROCIN 2% OINT 22 GM TUBE TOP ONE (07:30)
[2016-09-12] MEDS ORDERED: fentaNYL 100 MCG/2 ML INJECTION (J3010) As Ordered ONE (08:14)
[2016-09-12] MEDS ORDERED: MIDAZOLAM INJ 2 MG/2 ML VIAL (J2250) As Ordered ONE ×2 (08:14→09:59)
[2016-09-12] MEDS ORDERED: BUPIVACAINE HCL 0.5% 30 ML VIAL As Ordered ONE (08:47)
[2016-09-12] MEDS ORDERED: BUPIVACAINE LIPOSOME/PF 1.3% 20 ML VIAL (13.3MG/ML)(EXPAREL) As Ordered ONE ×2 (08:48→11:25)
[2016-09-12] MEDS ORDERED: EPIDURAL/PCA KEYS XX PRN (09:15)
[2016-09-12] MEDS ORDERED: NALOXONE INJ 0.4 MG/1 ML VIAL (J2310) IV PRN (09:15)
[2016-09-12] MEDS ORDERED: MIDAZOLAM INJ 2 MG/2 ML VIAL (J2250) IV ONE (09:15)
[2016-09-12] MEDS ORDERED: METOCLOPRAMIDE INJ 10MG/2ML VIAL (J2765) IV PRN (09:15)
[2016-09-12] MEDS ORDERED: diphenhydrAMINE INJ 50MG/ML VIAL (J1200) IV PRN (09:15)
[2016-09-12] MEDS ORDERED: WALLBOXKEY XX PRN (09:15)
[2016-09-12] MEDS ORDERED: ONDANSETRON 4MG/2ML VIAL (J2405) IV PRN ×2 (09:15→13:30)
[2016-09-12] MEDS ORDERED: fentaNYL 100 MCG/2 ML INJECTION (J3010) IV ONE ×2 (09:15)
[2016-09-12] MEDS ORDERED: BUPIVACAINE HCL 0.25% 30 ML VIAL As Ordered ONE (09:59)
[2016-09-12] MEDS ORDERED: ROCURONIUM BROMIDE 50 MG/5 ML VIAL As Ordered ONE ×2 (09:59→11:26)
[2016-09-12] MEDS ORDERED: PROPOFOL 200 MG/20 ML VIAL As Ordered ONE (09:59)
[2016-09-12] MEDS ORDERED: fentaNYL 250 MCG/5 ML INJECTION (J3010) As Ordered ONE (09:59)
[2016-09-12] MEDS ORDERED: LIDOCAINE 2% INJ 100 MG/5 ML SDV (FOR ANES.) As Ordered ONE (09:59)
[2016-09-12] MEDS ORDERED: dexameTHASONE 4 MG/ML 1ML VIAL (J1100) As Ordered ONE (10:35)
[2016-09-12] MEDS ORDERED: HYDROmorphone HCL 2 MG/ML 1ML VIAL (J1170) As Ordered ONE (10:45)
[2016-09-12] MEDS ORDERED: GLYCOPYRROLATE INJ 0.2 MG/ML 2 ML VIAL As Ordered ONE (11:18)
[2016-09-12] MEDS ORDERED: NEOSTIGMINE 1MG/ML 5 ML SYRINGE (J2710) As Ordered ONE (11:18)
[2016-09-12] MEDS ORDERED: ONDANSETRON 4MG/2ML VIAL (J2405) As Ordered ONE (11:18)
[2016-09-12] MEDS ORDERED: BISACODYL 10 MG SUPP PR PRN (12:15)
[2016-09-12] MEDS ORDERED: ACETAMINOPHEN TAB 650MG DOSE (2X325MG) PO PRN (12:15)
[2016-09-12] MEDS ORDERED: LEVALBUTEROL 1.25 MG/0.5 ML CONCENTRATE NEB NEB PRN (12:15)
[2016-09-12] MEDS ORDERED: PERCOCET 5MG/325MG TAB PO PRN ×2 (12:15→13:30)
[2016-09-12 12:53] LABS: ABG BASE EXCESS -3.4 (-2.0-2.0); ABG HCO3 22.7 MEQ/L (22.0-26.0); ABG PARTIAL PRESSURE CO2 44.5 mmHg (35.0-45.0); ABG PARTIAL PRESSURE O2 135.7 mmHg (75.0-100.0); ABG STANDARD HCO3 21.7 MEQ/L (22.0-26.0); ABG pH (ARTERIAL) 7.325 UNITS (7.350-7.450)
[2016-09-12] MEDS: FENTANYL/BUPIVACAINE/NACL BAG 250 ML EPIDURAL SCH (12:55)
[2016-09-12 13:00] LABS: BASO % 0.2 % (0.0-1.0); EOS % 0.2 % (0.0-3.0); LARGE UNSTAINED CELL # 0.1 K/mm3 (0.0-0.4); LARGE UNSTAINED CELL % 0.3 % (0.0-4.0); LYMPH # 1.8 K/mm3 (1.5-4.5); LYMPH % 9.1 % (24.0-44.0); MEAN CORPUSCULAR HEMOGLOBIN 27.9 pg (27.0-33.0); MEAN CORPUSCULAR HGB CONC 32.4 g/dl (32.0-36.5); MEAN CORPUSCULAR VOLUME 86.3 fl (80.0-96.0); MONO # 0.3 K/mm3 (0.0-0.8); MONO % 1.4 % (0.0-5.0); NEUTROPHILS # 17.1 K/mm3 (1.8-7.7); NEUTROPHILS % 88.8 % (36.0-66.0); PLATELET COUNT, AUTOMATED 384 k/mm3 (150-450); RED CELL DISTRIBUTION WIDTH 13.7 % (11.5-14.5); WHITE BLOOD COUNT 19.3 K/mm3 (4.0-10.0)
[2016-09-12 13:22] LABS: ANION GAP 9 MEQ/L (8-16); BLOOD UREA NITROGEN 12 MG/DL (7-18); CALCIUM LEVEL 8.8 MG/DL (8.5-10.1); CARBON DIOXIDE LEVEL 25 MEQ/L (21-32); CHLORIDE LEVEL 102 MEQ/L (98-107); CREATININE FOR GFR 0.75 MG/DL (0.55-1.02); GLOMERULAR FILTRATION RATE > 60.0 (>51); GLUCOSE, FASTING 141 MG/DL (70-105); POTASSIUM SERUM 4.5 MEQ/L (3.5-5.1); SODIUM LEVEL 136 MEQ/L (136-145)
[2016-09-12] MEDS ORDERED: fentaNYL 100 MCG/2 ML INJECTION (J3010) IV PRN (13:30)
[2016-09-12] MEDS ORDERED: HYDROmorphone HCL 1 MG/ML SYRINGE (J1170) IV PRN (13:30)
[2016-09-12] MEDS: KCL 20MEQ IN D5/NS 1000ML 1,000 ML IV SCH (13:56)
[2016-09-12] MEDS: LEVALBUTEROL 1.25 MG/0.5 ML CONCENTRATE NEB NEB SCH ×2 (14:00→19:53)
[2016-09-12] MEDS: KETOROLAC 30 MG/ML VIAL (J1885) IV SCH ×2 (14:17→20:10)
[2016-09-12] MEDS: LISINOPRIL 10 MG TAB PO SCH (15:36)
--- NOTE | 2016-09-12 16:20 | REP ---
PORTABLE CHEST, ONE VIEW: HISTORY: Left lower lobectomy. COMPARISON: 09/07/2016 There is slight elevation of the left hemidiaphragm. Increased density is present in the lower lobes consistent with bibasilar atelectasis or infiltrates. The heart is normal in size. The pulmonary vasculature is normal in appearance. Two chest tubes are present in the left hemithorax. There is no pneumothorax. Subcutaneous emphysema is present overlying the left hemithorax. IMPRESSION: 1. Bibasilar atelectasis or infiltrates. 2. There is no pneumothorax. Signed by Allan Mendiola MD 09/12/2016 04:23 P
--- NOTE | 2016-09-12 18:21 | RO ---
DATE OF PROCEDURE: 09/12/2016 PREPROCEDURE DIAGNOSIS: Carcinoid tumor left lower lobe. POSTPROCEDURE DIAGNOSIS: Carcinoid tumor left lower lobe. Final pathology pending. PROCEDURE: Left lower lobectomy, mediastinal lymphadenectomy, five level rib block, pleural flap bronchoplasty and bronchoscopy. SURGEON: Dr. Azam Cardoso CLIENT TECHNICAL SUPPORT ASSOCIATE: Dr. Sweet ANESTHESIA: FINDINGS: Bronchoscopy revealed a normal branching tracheobronchial tree. There was a very high take-off of the right upper lobe. The left mainstem bronchus was shorter than usual. There were only a few secretions, and these were suction aspirated. The lobectomy revealed a 1 cm nodule in the left lower lobe posterolaterally. There was a complete fissure. There were numerous individual vessels supplying the left lower lobe rather than a single trunk. There was one enlarged AP window node along the pulmonary artery, which was removed in toto. Dr. Sweet assisted and provided retraction and exposure, in particular for the great vessels so the operation could be conducted in a safe manner. DESCRIPTION OF PROCEDURE: Under satisfactory general anesthesia and single lumen tube endotracheal intubation, the bronchoscope was placed into the tracheobronchial tree with the above findings. Each segment and subsegment were suction aspirated and individually inspected. There were no endobronchial lesions seen. The patient then underwent double lumen tube endotracheal intubation and placed into the right lateral decubitus position with the left side up. The patient was prepped and draped in the usual sterile fashion and a posterolateral incision was made. The patient is very obese, and there was an excess amount of adipose tissue. This was divided as was the latissimus dorsi and a slip of the serratus anterior. The chest was entered through the fifth intercostal space. A rib retractor was placed and dissection was started in the major fissure. Just prior to starting dissection, the presence of the lesion was ascertained and confirmed. The posterior mediastinal pleura was incised toward the pulmonary artery, which was dissected back as far as I could go posteriorly. The fissure was then dressed and the artery found deep within the completed fissure. The posterior portion of the fissure could be completely dissected without use of a stapler. Gaining access to the adventitial layer of the pulmonary artery, dissection proceeded distally. There looked to be one major trunk initially, and this was divided by use of a vascular stapler. More distal dissection, however, revealed numerous other arteries supplying the left lower lobe and these were all eventually divided by use of a vascular stapler. The last branch could not be addressed with a stapler, and it was manually tied with two #0 silk sutures, reinforced by hemoclips and a #3-0 stick tie. The inferior pulmonary vein was dissected free both anteriorly and posteriorly. The inferior pulmonary ligament was released to confirm that the vein I was actually dissecting was the left inferior pulmonary vein. This was surrounded by vessel loop and was divided by use of a vascular stapler. This then left the remainder of the fissure, and this was divided by use of an Carmel JORDAN stapler. The specimen was delivered to the operating table and sent for pathology. The bronchus was then tested to 30 cm of water and was found to be intact. The AP window pleura was then incised. The recurrent nerve was seen and avoided. There were no nodes within the AP window; however, there was one major node along the pulmonary artery as it entered the pulmonary window and that was dissected free and sent for pathological examination. There was also a large, what looked to be anthracotic node on the lower lobe bronchus stump which was dissected and sent for pathological examination. A pleural flap was created by incising the pleura and adventitia of the aorta and swinging it onto the bronchus. This was secured to the bronchus by use of interrupted #3-0 Vicryl sutures. The bronchus was again tested and was found to be intact. There was one area in the parenchyma which was leaking, and this was filled with Tisseel glue. Tisseel glue was also placed over the aorta and the AP window dissection. After achieving adequate hemostasis, two chest tubes were placed, one #28 curved posteriorly and a #24 straight anteriorly. A five-level rib block was undertaken with Exparel. The ribs were reapproximated by use of #1 Prolene [id number] sutures and tied secured. The extrathoracic muscles were then reapproximated by use of running #0 Vicryl suture. The subcutaneous tissue was closed with running #3-0 Vicryl suture and the skin closed with running #3-0 Monocryl subcuticular suture. The patient tolerated the procedure well and left the operating room in satisfactory condition for the recovery room.
[2016-09-12] MEDS: HEPARIN SOD (PORCINE) 5000 UNITS/ML VIAL SC SCH (20:10)
[2016-09-12] MEDS: DOCUSATE SODIUM 100 MG CAP PO SCH (20:10)
[2016-09-12] MEDS: CALCIPOTRIENE CREAM 0.005% 60GM TOP SCH (20:10)
[2016-09-13] VITALS (15 sets, daily range): BP systolic 125–159; BP diastolic 58–82; O2SAT 92–100
[2016-09-13] MEDS: LEVALBUTEROL 1.25 MG/0.5 ML CONCENTRATE NEB NEB SCH ×4 (01:42→20:17)
[2016-09-13] MEDS: KCL 20MEQ IN D5/NS 1000ML 1,000 ML IV SCH ×2 (02:07→14:12)
[2016-09-13] MEDS: KETOROLAC 30 MG/ML VIAL (J1885) IV SCH ×4 (02:07→20:02)
[2016-09-13] MEDS: FENTANYL/BUPIVACAINE/NACL BAG 250 ML EPIDURAL SCH ×2 (05:36→09:30)
[2016-09-13 06:06] LABS: BASO % 0.1 % (0.0-1.0); EOS # 0.1 K/mm3 (0.0-0.50); EOS % 0.6 % (0.0-3.0); LARGE UNSTAINED CELL # 0.2 K/mm3 (0.0-0.4); LYMPH # 1.5 K/mm3 (1.5-4.5); LYMPH % 7.9 % (24.0-44.0); MEAN CORPUSCULAR HEMOGLOBIN 29.5 pg (27.0-33.0); MEAN CORPUSCULAR HGB CONC 33.5 g/dl (32.0-36.5); MONO % 5.1 % (0.0-5.0); NEUTROPHILS % 85.3 % (36.0-66.0); PLATELET COUNT, AUTOMATED 333 k/mm3 (150-450); RED CELL DISTRIBUTION WIDTH 13.6 % (11.5-14.5); WHITE BLOOD COUNT 18.7 K/mm3 (4.0-10.0)
[2016-09-13 06:25] LABS: ABG BASE EXCESS -2.9 (-2.0-2.0); ABG HCO3 21.6 MEQ/L (22.0-26.0); ABG PARTIAL PRESSURE CO2 36.6 mmHg (35.0-45.0); ABG PARTIAL PRESSURE O2 107.5 mmHg (75.0-100.0); ABG STANDARD HCO3 22.1 MEQ/L (22.0-26.0); ABG TOTAL CO2 22.7 MEQ/L (22.0-29.0); ABG pH (ARTERIAL) 7.388 UNITS (7.350-7.450)
[2016-09-13 06:25] LABS: ANION GAP 9 MEQ/L (8-16); BLOOD UREA NITROGEN 10 MG/DL (7-18); CALCIUM LEVEL 8.3 MG/DL (8.5-10.1); CARBON DIOXIDE LEVEL 24 MEQ/L (21-32); CHLORIDE LEVEL 101 MEQ/L (98-107); CREATININE FOR GFR 0.67 MG/DL (0.55-1.02); GLOMERULAR FILTRATION RATE > 60.0 (>51); GLUCOSE, FASTING 132 MG/DL (70-105); POTASSIUM SERUM 4.7 MEQ/L (3.5-5.1); SODIUM LEVEL 134 MEQ/L (136-145)
[2016-09-13] MEDS ORDERED: LIDOCAINE PRES-FREE 2% 10ML AMP As Ordered ONE (07:40)
[2016-09-13] MEDS ORDERED: fentaNYL 100 MCG/2 ML INJECTION (J3010) As Ordered ONE (07:57)
[2016-09-13] MEDS ORDERED: MIDAZOLAM INJ 2 MG/2 ML VIAL (J2250) As Ordered ONE (07:57)
[2016-09-13] MEDS ORDERED: ONDANSETRON 4MG/2ML VIAL (J2405) As Ordered ONE (08:11)
[2016-09-13] MEDS: MIDAZOLAM INJ 2 MG/2 ML VIAL (J2250) IV SCH ×2 (08:15→08:37)
[2016-09-13] MEDS: ONDANSETRON 4MG/2ML VIAL (J2405) IV PRN (08:15)
[2016-09-13] MEDS ORDERED: LIDOCAINE 2% W/EPIN INJ 20ML **PRES FREE As Ordered ONE (08:22)
[2016-09-13] MEDS ORDERED: BUPIVACAINE HCL 0.25% 10 ML VIAL As Ordered ONE (08:54)
[2016-09-13] MEDS ORDERED: PANTOPRAZOLE 40MG TAB (PROTONIX) PO SCH (09:00)
[2016-09-13] MEDS: PHENYLephrine HCL 500 MCG/5 ML (100MCG/ML) SYRINGE (J2370) IV SCH ×4 (09:12→09:37)
[2016-09-13] MEDS ORDERED: LIDOCAINE 2% W/EPIN INJ 20ML **PRES FREE XX ONE (09:15)
[2016-09-13] MEDS ORDERED: BUPIVACAINE HCL 0.25% 10 ML VIAL XX ONE (09:15)
[2016-09-13] MEDS ORDERED: fentaNYL 100 MCG/2 ML INJECTION (J3010) IV ONE (09:15)
[2016-09-13] MEDS ORDERED: EPIDURAL/PCA KEYS XX PRN (09:30)
[2016-09-13] MEDS ORDERED: ONDANSETRON 4MG/2ML VIAL (J2405) IV ONE (09:30)
[2016-09-13] MEDS ORDERED: diphenhydrAMINE INJ 50MG/ML VIAL (J1200) IV PRN (09:30)
[2016-09-13] MEDS ORDERED: METOCLOPRAMIDE INJ 10MG/2ML VIAL (J2765) IV PRN (09:30)
[2016-09-13] MEDS ORDERED: WALLBOXKEY XX PRN (09:30)
[2016-09-13] MEDS ORDERED: NALOXONE INJ 0.4 MG/1 ML VIAL (J2310) IV PRN (09:30)
[2016-09-13] MEDS ORDERED: PHENYLephrine HCL 500 MCG/5 ML (100MCG/ML) SYRINGE (J2370) As Ordered ONE (09:52)
--- NOTE | 2016-09-13 12:01 | REP ---
CHEST, TWO VIEWS: HISTORY: Left lower lobectomy. COMPARISON: 09/12/2016 There is elevation of the left hemidiaphragm. Increased density is present in the left lower lobe consistent with atelectasis or infiltrate. The right lung is clear. The heart is normal in size. The pulmonary vasculature is normal in appearance. Two chest tubes are present in the left hemithorax. There is no pneumothorax. Subcutaneous emphysema is present in the left supraclavicular area. IMPRESSION: 1. Left lower lobe atelectasis or infiltrate unchanged compared to the previous study. 2. There is no pneumothorax. Signed by Allan Mendiola MD 09/13/2016 12:06 P
[2016-09-13] MEDS: MOM 30ML SUSPENSION UDC PO SCH (12:07)
[2016-09-13] MEDS: LISINOPRIL 10 MG TAB PO SCH (12:07)
[2016-09-13] MEDS: DOCUSATE SODIUM 100 MG CAP PO SCH ×2 (12:07→20:01)
[2016-09-13] MEDS: AZELASTINE 137MCG NASAL SPY 30 ML (ASTELIN) SCH (12:08)
[2016-09-13] MEDS: PANTOPRAZOLE 40MG INJ (PROTONIX) (C9113) IV SCH (12:08)
[2016-09-13] MEDS: HEPARIN SOD (PORCINE) 5000 UNITS/ML VIAL SC SCH ×2 (12:08→20:02)
--- NOTE | 2016-09-13 13:19 | IPN ---
DATE OF SERVICE: 09/13/2016 Mrs. Jaramillo had a very difficult night with pain control last night. The epidural was obviously not working, and it was replaced this morning with excellent pain control. The patient is now able to cough and deep breathe and bring up phlegm. I was not called last night with regard to her pain control. Her vital signs show a maximum temperature (Tmax) of 97.3 with a heart rate that ranges between 88 and 90 in a sinus rhythm, respiratory rate that is constant at 18, who is 100% saturated on 3 liters nasal cannula, and whose blood pressure is ranging between 103/51 to 100/50. Her intake and output over the past 24 hours has been recorded as 2445 in and 1605 out for a positivity of 840 mL. She has put out 320 mL from the chest tube, and there is a small air leak. On physical examination, her lungs show rhonchi throughout, both sides. They do not all clear with coughing but do diminish with coughing. Percussion note is full to the diaphragm. Cardiac examination is without murmurs, clicks, gallops, or rubs. I cannot feel her point of maximal impulse (PMI). S1 and S2 are normal. Abdomen: Is soft, nontender. Bowel sounds are positive. There is no hepatomegaly. No costovertebral angle (CVA) tenderness. Extremities: Show no pretibial edema. No calf tenderness. No differential swelling of the upper extremities. Skin is warm, dry, and perfused without cyanosis or mottling, including that of the nail beds and the knees. Neck is supple. There is no jugular venous distention and no subcutaneous emphysema. Trachea is midline. Mouth shows her mucous membranes to be pink and moist. Lips and commissures without lesions. There is no thrush. Eyes show her pupils to be equal and reactive. Extraocular motor intact. Sclerae anicteric. Neurological: Shows II-XII intact, along with gross motor and gross sensation intact. Gait is not tested. Psychiatric shows her to be awake and alert, oriented times three, with appropriate mood and affect and conversational. Her white count today is 18.7, with a hemoglobin and hematocrit of 14.3 and 42.7, respectively. Platelet count is 333 and stable. Differential shows 85% neutrophils, 7% lymphocytes, 5% monocytes. There are no immature forms and no toxic granulations. Chemistries show normal white count with BUN and creatinine of 10 and 0.67. Glucose is 132 with a calcium of 8.3. Blood gases this morning show a pH of 7.38, pCO2 of 36, and pO2 of 107 on the 2 liters nasal cannula. Base excess is -2.9. Her chest x-ray today shows the lung fully expanded to the chest wall. There is a slight haze in the left lower hemithorax. However, the posterior costophrenic angle is sharp on the lateral film. Her chest tubes are in good place. I have gone over the slides with Dr. Kern of pathology. She has about an 8 mm typical carcinoid. All nodes are negative. IMPRESSION: 1. Typical carcinoid, left lower lobe, excised. 2. Inadequate pain control, now addressed with a new epidural. 3. Hypertension. 4. Gastroesophageal reflux disease. 5. Psoriasis. PLAN AND DISCUSSION: I will keep her chest tubes and suction today. Her pain is now being well controlled, and we will start to ambulate her. She is coughing and deep breathing now and bringing up phlegm. She will not need chemotherapy or radiation therapy. She has stage IA disease, [id number].
[2016-09-13] MEDS: CALCIPOTRIENE CREAM 0.005% 60GM TOP SCH (20:03)
[2016-09-14] VITALS (19 sets, daily range): BP systolic 102–140; BP diastolic 51–67; O2SAT 91–98
[2016-09-14] MEDS: KETOROLAC 30 MG/ML VIAL (J1885) IV SCH ×4 (01:09→19:55)
[2016-09-14] MEDS: LEVALBUTEROL 1.25 MG/0.5 ML CONCENTRATE NEB NEB SCH ×4 (02:00→21:08)
[2016-09-14] MEDS: FENTANYL/BUPIVACAINE/NACL BAG 250 ML EPIDURAL SCH (05:30)
[2016-09-14 05:54] LABS: BASO % 0.1 % (0.0-1.0); EOS # 0.2 K/mm3 (0.0-0.50); EOS % 1.5 % (0.0-3.0); LARGE UNSTAINED CELL # 0.1 K/mm3 (0.0-0.4); LYMPH # 2.1 K/mm3 (1.5-4.5); LYMPH % 18.7 % (24.0-44.0); MEAN CORPUSCULAR HEMOGLOBIN 28.9 pg (27.0-33.0); MEAN CORPUSCULAR HGB CONC 33.3 g/dl (32.0-36.5); MEAN CORPUSCULAR VOLUME 86.9 fl (80.0-96.0); MONO # 0.7 K/mm3 (0.0-0.8); MONO % 6.2 % (0.0-5.0); NEUTROPHILS # 7.8 K/mm3 (1.8-7.7); NEUTROPHILS % 72.5 % (36.0-66.0); PLATELET COUNT, AUTOMATED 265 k/mm3 (150-450); RED CELL DISTRIBUTION WIDTH 14.2 % (11.5-14.5); WHITE BLOOD COUNT 10.8 K/mm3 (4.0-10.0)
[2016-09-14 06:05] LABS: ANION GAP 5 MEQ/L (8-16); BLOOD UREA NITROGEN 9 MG/DL (7-18); CALCIUM LEVEL 7.8 MG/DL (8.5-10.1); CARBON DIOXIDE LEVEL 27 MEQ/L (21-32); CHLORIDE LEVEL 105 MEQ/L (98-107); CREATININE FOR GFR 0.56 MG/DL (0.55-1.02); GLOMERULAR FILTRATION RATE > 60.0 (>51); GLUCOSE, FASTING 105 MG/DL (70-105); POTASSIUM SERUM 4.3 MEQ/L (3.5-5.1); SODIUM LEVEL 137 MEQ/L (136-145)
[2016-09-14] MEDS: AZELASTINE 137MCG NASAL SPY 30 ML (ASTELIN) SCH (09:00)
[2016-09-14] MEDS: DOCUSATE SODIUM 100 MG CAP PO SCH ×2 (09:08→20:47)
[2016-09-14] MEDS: HEPARIN SOD (PORCINE) 5000 UNITS/ML VIAL SC SCH ×2 (09:09→20:48)
[2016-09-14] MEDS: PANTOPRAZOLE 40MG INJ (PROTONIX) (C9113) IV SCH (09:09)
[2016-09-14] MEDS: LISINOPRIL 10 MG TAB PO SCH (09:09)
[2016-09-14] MEDS: MOM 30ML SUSPENSION UDC PO SCH (09:10)
[2016-09-14] MEDS ORDERED: LIDOCAINE 1% MDV 20ML VIAL ONE (11:28)
[2016-09-14] MEDS ORDERED: SLF 3 ML SYR IV PRN (11:30)
--- NOTE | 2016-09-14 11:30 | REP ---
CHEST, TWO VIEWS: HISTORY: Left lower lobectomy. COMPARISON: 09/13/2016. There is elevation of the left hemidiaphragm. Increased density is present in the left lower lobe consistent with atelectasis or infiltrate unchanged compared to the previous study. Increased density is present in the right lower lobe consistent with atelectasis or infiltrate. The heart is normal in size. The pulmonary vasculature is normal in appearance. Two chest tubes are present in the left hemithorax. There is a small left apical pneumothorax. A small amount of subcutaneous emphysema is present overlying the left hemithorax and left supraclavicular areas. IMPRESSION: 1. Left lower lobe atelectasis or infiltrate unchanged compared to the previous study. 2. Small left apical pneumothorax. 3. Right lower lobe atelectasis or infiltrate. Signed by Allan Mendiola MD 09/14/2016 11:33 A
--- NOTE | 2016-09-14 12:15 | IPN ---
DATE: 09/14/2016 This is now the second postoperative day for Mrs. Jaramillo. Her pain was fairly well controlled last night at a level of 3. However, today, she looks a little bit more distressed and in pain. She is awaiting her Toradol. She does look exhausted and washed out. Her vital signs show a maximum temperature (t-max) of 99.8 with a heart rate that ranges between 109 and 76 in a sinus rhythm, respiratory rate of 18 to 20 without the use of accessory muscles, who is 97 to 95% saturated on room air. His blood pressure is ranging between 117/67 to 127/59. Her intake and output over the past 24 hours has been recorded as 5 in and 4095 out for a negativity of 270 mL. I did give her a bolus of Lasix yesterday. Her chest tube output has been 620 mL over the past 24 hours. She weighs 105.2 kg today compared to 105.1 kg yesterday. She has one bubble air leak on forceful coughing. PHYSICAL EXAMINATION: LUNGS: She has inspiratory rales and rhonchi throughout, not all which clear with coughing. Percussion note is full to the diaphragm. CARDIAC EXAM: Without murmurs, clicks, gallops or rubs. I cannot feel her point of maximum impulse (PMI). S1, S2 are normal. ABDOMEN: Soft, nontender. Bowel sounds positive. There is no hepatomegaly. No costovertebral angle tenderness. EXTREMITIES: Show no pretibial edema. No calf tenderness. No differential swelling of the upper extremities. SKIN: Warm, dry and perfused without cyanosis or mottling, including that of the nail beds and knees. NECK: Supple. There is no jugular venous distention. No subcutaneous emphysema. Trachea is midline. MOUTH: Shows her mucous membranes to be pink and moist. Lips and commissures without lesions. There is no thrush. EYES: Show her pupils to be equal and reactive. Extraocular motion intact. Sclerae anicteric. NEUROLOGIC: Shows II through XII intact with gross motor and gross sensation intact. Gait is not tested. PSYCHIATRIC: Shows her to be awake and alert, oriented times three with appropriate mood and affect and conversational. Her chest x-ray today shows her lung fully expanded to the chest wall. There is obligate volume loss from the lobectomy. Chest tubes are in good place. There is minimal subcutaneous emphysema at the anterior chest tube insertion site. Mediastinum is in the midline. Her white count today is 10.8, down from 18.7 yesterday. Hemoglobin and hematocrit are 12.3 and 37.0, and a platelet count is 265. Differential shows 72% neutrophils, 18% lymphocytes, 6% monocytes. There are no immature forms and no toxic granulations. Her electrolytes are normal with a BUN and creatinine of 9 and 0.56, glucose of 105 and a calcium of 7.8. There are no blood gases on her today. I have gone over the slides with Dr. Blackburn of pathology. This looks to be a typical carcinoma with very, if any, mitoses. There is cytoplasm surrounding the nuclei. The lymph nodes are negative for disease. This now therefore looks to be a stage 1A carcinoid, T1a N0 M0. IMPRESSION: 1. Typical carcinoid, left lower lobe, excised. 2. Inadequate pain control, now addressed with a new epidural and relatively satisfactory. 3. Hypertension. 4. Gastroesophageal reflux disease (GERD). 5. Psoriasis. PLAN AND DISCUSSION: I will continue her on chest tube suction today. She has put out 190 mL from the chest tube in the last 10 hours. I will hold off diuresing her today, as she was negative 1999 yesterday. We will continue to mobilize her. She will continue on the Toradol, as her BUN and creatinine are stable. IMPRESSION:
[2016-09-14] MEDS: SLF 3 ML SYR IV SCH ×2 (13:55→19:55)
[2016-09-14] MEDS ORDERED: FUROSEMIDE 40 MG/4 ML VIAL (J1940) IV ONE (20:15)
[2016-09-14] MEDS: CALCIPOTRIENE CREAM 0.005% 60GM TOP SCH (21:16)
[2016-09-15] VITALS (16 sets, daily range): BP systolic 110–150; BP diastolic 63–73; O2SAT 96–98
[2016-09-15] MEDS: ONDANSETRON 4MG/2ML VIAL (J2405) IV PRN ×3 (01:16→17:16)
[2016-09-15] MEDS: KETOROLAC 30 MG/ML VIAL (J1885) IV SCH ×4 (01:17→20:37)
[2016-09-15] MEDS: LEVALBUTEROL 1.25 MG/0.5 ML CONCENTRATE NEB NEB SCH ×4 (01:55→21:14)
[2016-09-15] MEDS: FENTANYL/BUPIVACAINE/NACL BAG 250 ML EPIDURAL SCH (04:15)
[2016-09-15] MEDS: SLF 3 ML SYR IV SCH ×3 (05:02→20:38)
[2016-09-15 05:50] LABS: BASO % 0.2 % (0.0-1.0); EOS # 0.4 K/mm3 (0.0-0.50); EOS % 3.5 % (0.0-3.0); LARGE UNSTAINED CELL # 0.1 K/mm3 (0.0-0.4); LYMPH # 1.7 K/mm3 (1.5-4.5); MEAN CORPUSCULAR HEMOGLOBIN 28.3 pg (27.0-33.0); MEAN CORPUSCULAR HGB CONC 32.1 g/dl (32.0-36.5); MEAN CORPUSCULAR VOLUME 88.2 fl (80.0-96.0); MONO # 0.6 K/mm3 (0.0-0.8); MONO % 5.5 % (0.0-5.0); NEUTROPHILS # 7.4 K/mm3 (1.8-7.7); NEUTROPHILS % 72.8 % (36.0-66.0); PLATELET COUNT, AUTOMATED 310 k/mm3 (150-450); WHITE BLOOD COUNT 10.1 K/mm3 (4.0-10.0)
[2016-09-15] MEDS: LORATADINE 10 MG TAB PO PRN (05:53)
[2016-09-15 06:11] LABS: ANION GAP 7 MEQ/L (8-16); BLOOD UREA NITROGEN 11 MG/DL (7-18); CALCIUM LEVEL 8.3 MG/DL (8.5-10.1); CARBON DIOXIDE LEVEL 31 MEQ/L (21-32); CHLORIDE LEVEL 99 MEQ/L (98-107); CREATININE FOR GFR 0.63 MG/DL (0.55-1.02); GLOMERULAR FILTRATION RATE > 60.0 (>51); GLUCOSE, FASTING 123 MG/DL (70-105); POTASSIUM SERUM 4.4 MEQ/L (3.5-5.1); SODIUM LEVEL 137 MEQ/L (136-145)
[2016-09-15] MEDS ORDERED: FUROSEMIDE 40 MG/4 ML VIAL (J1940) IV ONE (07:30)
[2016-09-15] MEDS: AZELASTINE 137MCG NASAL SPY 30 ML (ASTELIN) SCH (09:00)
[2016-09-15] MEDS: PANTOPRAZOLE 40MG INJ (PROTONIX) (C9113) IV SCH (10:02)
[2016-09-15] MEDS: MOM 30ML SUSPENSION UDC PO SCH (10:03)
[2016-09-15] MEDS: HEPARIN SOD (PORCINE) 5000 UNITS/ML VIAL SC SCH ×2 (10:03→20:37)
[2016-09-15] MEDS: LISINOPRIL 10 MG TAB PO SCH (10:03)
[2016-09-15] MEDS: DOCUSATE SODIUM 100 MG CAP PO SCH ×2 (10:04→20:37)
--- NOTE | 2016-09-15 11:51 | REP ---
CHEST, TWO VIEWS: HISTORY: Left lower lobectomy. COMPARISON: 09/14/2016. There is elevation of the left hemidiaphragm. Increased density is present in the lower lobes consistent with atelectasis or infiltrates, unchanged compared to the previous study. The heart is normal in size. The pulmonary vasculature is normal in appearance. Two chest tubes are present in the left hemithorax. A small apical pneumothorax is present that is slightly increased in size compared to the previous study. A small amount of subcutaneous emphysema is present overlying the left hemithorax and left supraclavicular area. IMPRESSION: 1. Bibasilar atelectasis or infiltrates unchanged compared to the previous study. 2. Small left apical pneumothorax slightly increased in size compared to the previous study. Signed by Allan Mendiola MD 09/15/2016 11:54 A
--- NOTE | 2016-09-15 13:16 | IPN ---
DATE: 09/15/2016 This is now the third postoperative day for Mrs. Jaramillo. She looks much better today than she did yesterday. She is not as washed out and not as exhausted. Her pain is being fairly well controlled with the epidural catheter. Her vital signs show a maximum temperature (t-max) of 99.2 with a heart rate that ranges between 93 and 83 in a sinus rhythm, respiratory rate of 18 to 20 without the use of accessory muscles, who is 94 to 97 saturated now on room air. Blood pressure is ranging between 139/67 to 150/72. Her intake and output over the past 24 hours has been recorded as 1950 in and 4240 out for a negativity of nearly 2300 mL. She has put out 490 mL from the chest tube and there is no air leak. Weight today is 101.7 kg today compared to 105.2 kg yesterday. PHYSICAL EXAMINATION: LUNGS: She has scattered rhonchi, most which clear with coughing on both sides with the left greater than the right. Percussion note is full to the diaphragm. CARDIAC EXAM: Without murmurs, clicks, gallops or rubs. I cannot feel her point of maximum impulse (PMI). S1, S2 are normal. ABDOMEN: Soft, nontender. Bowel sounds positive. There is no hepatomegaly. No costovertebral angle tenderness. She has not yet had a bowel movement. She is having flatus. EXTREMITIES: Show no pretibial edema. No calf tenderness. No differential swelling of the upper extremities. SKIN: Warm, dry and perfused without cyanosis or mottling, including that of the nail beds and knees. NECK: Supple. There is no jugular venous distention. No subcutaneous emphysema. Trachea is midline. MOUTH: Shows her mucous membranes to be pink and moist. Lips and commissures without lesions. There is no thrush. EYES: Show her pupils to be equal and reactive. Extraocular motions intact. Sclerae anicteric. NEUROLOGIC: Shows II through XII intact with gross motor and gross sensation intact. Gait is not tested. PSYCHIATRIC: Shows her to be awake and alert, oriented times three with appropriate mood and affect and conversational. Her white count continues to decrease, now down to 10.1. Hemoglobin and hematocrit are 12.5 and 39.0, essentially unchanged from yesterday, with a platelet count of 310. Differential shows 72% neutrophils, 11% lymphocytes, 5% monocytes. There are no immature forms and no toxic granulations. Her chemistries today show normal electrolytes with BUN and creatinine of 11 and 0.63, glucose of 123 and a calcium of 8.3. There are no blood gases on her today. Her chest x-ray shows her lung fully expanded to the chest wall, but there is a 4 mm air space at the cupula at the upper hemithorax. Costophrenic angles are sharp, but there are some atelectatic changes at the left costophrenic angle. Chest tubes in good place. There is no subcutaneous emphysema. IMPRESSION: 1. Typical carcinoid, left lower lobe, stage 1A, T1a N0 M0. 2. Hypertension. 3. Gastroesophageal reflux disease (GERD). 4. Psoriasis. PLAN AND DISCUSSION: We will continue her chest tubes on suction today. She has put out way too much for me to pull them today. We will continue with her pain control with the epidural. I will again diurese her today, even though she is in negative fluid balance today because of her increased chest tube output.
[2016-09-15] MEDS: CALCIPOTRIENE CREAM 0.005% 60GM TOP SCH (20:38)
[2016-09-16] VITALS (16 sets, daily range): BP systolic 112–132; BP diastolic 53–66; O2SAT 85–98
[2016-09-16] MEDS: LEVALBUTEROL 1.25 MG/0.5 ML CONCENTRATE NEB NEB SCH ×4 (02:00→20:17)
[2016-09-16] MEDS: KETOROLAC 30 MG/ML VIAL (J1885) IV SCH ×4 (02:26→20:42)
[2016-09-16] MEDS: SLF 3 ML SYR IV SCH ×3 (02:27→21:40)
[2016-09-16] MEDS: FENTANYL/BUPIVACAINE/NACL BAG 250 ML EPIDURAL SCH (04:18)
[2016-09-16 05:39] LABS: BASO % 0.4 % (0.0-1.0); EOS # 0.3 K/mm3 (0.0-0.50); EOS % 2.8 % (0.0-3.0); LARGE UNSTAINED CELL # 0.1 K/mm3 (0.0-0.4); LARGE UNSTAINED CELL % 0.9 % (0.0-4.0); LYMPH # 1.5 K/mm3 (1.5-4.5); LYMPH % 12.2 % (24.0-44.0); MEAN CORPUSCULAR HEMOGLOBIN 28.6 pg (27.0-33.0); MEAN CORPUSCULAR VOLUME 86.5 fl (80.0-96.0); MONO # 0.5 K/mm3 (0.0-0.8); MONO % 4.6 % (0.0-5.0); PLATELET COUNT, AUTOMATED 312 k/mm3 (150-450); RED CELL DISTRIBUTION WIDTH 13.9 % (11.5-14.5); WHITE BLOOD COUNT 11.4 K/mm3 (4.0-10.0)
[2016-09-16 05:56] LABS: ANION GAP 6 MEQ/L (8-16); BLOOD UREA NITROGEN 11 MG/DL (7-18); CALCIUM LEVEL 8.4 MG/DL (8.5-10.1); CARBON DIOXIDE LEVEL 31 MEQ/L (21-32); CHLORIDE LEVEL 98 MEQ/L (98-107); CREATININE FOR GFR 0.68 MG/DL (0.55-1.02); GLOMERULAR FILTRATION RATE > 60.0 (>51); GLUCOSE, FASTING 120 MG/DL (70-105); POTASSIUM SERUM 4.4 MEQ/L (3.5-5.1); SODIUM LEVEL 135 MEQ/L (136-145)
[2016-09-16] MEDS ORDERED: FUROSEMIDE 40 MG/4 ML VIAL (J1940) IV ONE (09:00)
[2016-09-16] MEDS: MOM 30ML SUSPENSION UDC PO SCH (09:00)
[2016-09-16] MEDS: AZELASTINE 137MCG NASAL SPY 30 ML (ASTELIN) SCH (09:00)
[2016-09-16] MEDS: HEPARIN SOD (PORCINE) 5000 UNITS/ML VIAL SC SCH ×2 (09:14→20:41)
[2016-09-16] MEDS: PANTOPRAZOLE 40MG INJ (PROTONIX) (C9113) IV SCH (09:15)
[2016-09-16] MEDS: LISINOPRIL 10 MG TAB PO SCH (09:17)
[2016-09-16] MEDS: DOCUSATE SODIUM 100 MG CAP PO SCH ×2 (09:17→20:42)
[2016-09-16] MEDS: ONDANSETRON 4MG/2ML VIAL (J2405) IV PRN (10:21)
--- NOTE | 2016-09-16 12:45 | REP ---
CHEST, TWO VIEWS: Two views of the chest are performed and compared to the prior study of 09/15/2016. Two left chest tubes are again noted. There is no definite pneumothorax. Left basilar parenchymal opacities are stable. Cardiomediastinal silhouette is unchanged. IMPRESSION: Stable exam. No definite pneumothorax seen. Signed by Titi Horn MD 09/16/2016 05:19 P
[2016-09-16] MEDS: LORATADINE 10 MG TAB PO PRN (14:04)
--- NOTE | 2016-09-16 14:23 | IPN ---
DATE: 09/16/2016 This is now the fourth postoperative day for Mrs. Jaramillo. She is feeling better today and the pain is being well controlled at both the incisions and the chest tube insertion site. She is still putting a little bit too much out the chest tubes for me to remove them however. Her vital signs show a T-max of 99.3 with a heart rate that ranges between 74 and 101 and is sinus rhythm, respiratory rate of 18 without the use of accessory muscles, who is 98 saturated on 2 liters nasal cannula, and whose blood pressure is ranging between 114/60 to 128/62. Her intake and output over the past 24 hours has been recorded as 1170 in and 2835 out for a negativity of 1065 mL. She has put out 310 mL from the chest tube and there is no air leak. Weight today is 102.2 kg today compared to 101.7 kg yesterday. PHYSICAL EXAMINATION: LUNGS: She has scattered rhonchi on the left side. Percussion note is full to the diaphragm. CARDIAC EXAM: Without murmurs, clicks, gallops or rubs. I cannot feel her PMI. S1 and S2 are normal. ABDOMEN: Soft, nontender. Bowel sounds positive. There is no hepatomegaly. No CVA tenderness. EXTREMITIES: Show no pretibial edema. No calf tenderness. No differential swelling of the upper extremities. SKIN: Warm, dry and perfused without cyanosis or mottling, including that of the nail beds and knees. NECK: Supple. There is no jugular venous distention. No subcutaneous emphysema. Trachea is midline. MOUTH: Shows her mucous membranes to be pink and moist. Lips and commissures without lesions. There is no thrush. EYES: Show her pupils to be equal and reactive. Extraocular motions are intact. Sclerae nonicteric. NEUROLOGIC: Shows II through XII intact along with gross motor and gross sensation intact. Gait is not tested. PSYCHIATRIC: Shows her to be awake and alert, oriented times three with appropriate mood and affect and conversational. Her white count today is 11.4, up from 10.1 yesterday. Hemoglobin and hematocrit are 13.9 and 39.2, unchanged from yesterday, with a platelet count of 312. Differential shows 79% neutrophils, 12% lymphocytes, 4% monocytes. There are no immature forms and no toxic granulations. Her electrolytes are essentially normal with a BUN and creatinine of 11 and 0.68. Calcium is 8.4 with a glucose of 120. Her chest x-ray today shows the lung fully expanded to the chest wall. Chest tubes are in good place. I do not see an air space. There are no infiltrates and the costophrenic angles are sharp. IMPRESSION: 1. Postop day 4 status post left lower lobectomy. 2. Typical carcinoid, [id number], or a stage IA disease. 3. Hypertension. 4. Gastroesophageal reflux disease (GERD). 5. Psoriasis. PLAN AND DISCUSSION: I will continue her chest tubes today. I will take them off suction today. I will continue to diurese here. Hopefully we will be able to get the chest tubes out tomorrow.
[2016-09-16] MEDS: CALCIPOTRIENE CREAM 0.005% 60GM TOP SCH (20:42)
[2016-09-17] VITALS (13 sets, daily range): BP systolic 112–137; BP diastolic 55–60; O2SAT 97–98
[2016-09-17] MEDS: LEVALBUTEROL 1.25 MG/0.5 ML CONCENTRATE NEB NEB SCH ×4 (02:00→20:09)
[2016-09-17] MEDS: KETOROLAC 30 MG/ML VIAL (J1885) IV SCH ×2 (02:30→08:12)
[2016-09-17] MEDS: FENTANYL/BUPIVACAINE/NACL BAG 250 ML EPIDURAL SCH (05:29)
[2016-09-17] MEDS: SLF 3 ML SYR IV SCH ×3 (05:34→21:55)
[2016-09-17 05:47] LABS: BASO % 0.2 % (0.0-1.0); EOS # 0.3 K/mm3 (0.0-0.50); EOS % 3.8 % (0.0-3.0); LARGE UNSTAINED CELL # 0.1 K/mm3 (0.0-0.4); LARGE UNSTAINED CELL % 1.5 % (0.0-4.0); LYMPH # 2.2 K/mm3 (1.5-4.5); MEAN CORPUSCULAR HEMOGLOBIN 28.2 pg (27.0-33.0); MEAN CORPUSCULAR HGB CONC 31.9 g/dl (32.0-36.5); MEAN CORPUSCULAR VOLUME 88.4 fl (80.0-96.0); MONO # 0.6 K/mm3 (0.0-0.8); MONO % 6.4 % (0.0-5.0); NEUTROPHILS # 5.8 K/mm3 (1.8-7.7); NEUTROPHILS % 64.1 % (36.0-66.0); PLATELET COUNT, AUTOMATED 325 k/mm3 (150-450); RED CELL DISTRIBUTION WIDTH 13.8 % (11.5-14.5)
[2016-09-17 06:11] LABS: ANION GAP 8 MEQ/L (8-16); BLOOD UREA NITROGEN 14 MG/DL (7-18); CALCIUM LEVEL 8.2 MG/DL (8.5-10.1); CARBON DIOXIDE LEVEL 32 MEQ/L (21-32); CHLORIDE LEVEL 98 MEQ/L (98-107); CREATININE FOR GFR 0.69 MG/DL (0.55-1.02); GLOMERULAR FILTRATION RATE > 60.0 (>51); GLUCOSE, FASTING 107 MG/DL (70-105); SODIUM LEVEL 138 MEQ/L (136-145)
[2016-09-17] MEDS ORDERED: FUROSEMIDE 40 MG/4 ML VIAL (J1940) IV ONE (06:45)
[2016-09-17] MEDS: MOM 30ML SUSPENSION UDC PO SCH (09:42)
[2016-09-17] MEDS: HEPARIN SOD (PORCINE) 5000 UNITS/ML VIAL SC SCH ×2 (09:43→21:55)
[2016-09-17] MEDS: PANTOPRAZOLE 40MG INJ (PROTONIX) (C9113) IV SCH (09:43)
[2016-09-17] MEDS: DOCUSATE SODIUM 100 MG CAP PO SCH ×2 (09:43→21:54)
[2016-09-17] MEDS: AZELASTINE 137MCG NASAL SPY 30 ML (ASTELIN) SCH (09:43)
[2016-09-17] MEDS: LISINOPRIL 10 MG TAB PO SCH (09:44)
[2016-09-17] MEDS: LORATADINE 10 MG TAB PO PRN (09:56)
[2016-09-17] MEDS: ONDANSETRON 4MG/2ML VIAL (J2405) IV PRN (11:48)
--- NOTE | 2016-09-17 14:27 | REP ---
CHEST, TWO VIEWS: HISTORY: Status post left lower lobectomy. COMPARISON: Multiple, the latest yesterday. The left-sided thoracotomy tubes are unchanged. Mild left basilar opacity, status quo. No change in the cardiomediastinal silhouette. No new abnormal opacities. The right lung remains clear. There is no change in the osseous structures. IMPRESSION: No change. Signed by Adair Viveros DO 09/17/2016 02:48 P
--- NOTE | 2016-09-17 15:38 | IPN ---
DATE: 09/17/2016 This is now the fifth postoperative for Mrs. Jaramillo, status post her left lower lobectomy for stage 1A typical carcinoid tumor. She is feeling much perkier today. Her pain is being well controlled. She is still on the epidural infusion. Her vital signs show a maximum temperature (T max) of 98.4 with a heart rate that ranges between 86 and 95 and is sinus rhythm, a respiratory rate of 19 to 20 without the use of accessory muscles, who is 92% saturated on room air and whose blood pressure is ranging between 112/56 to 115/59. Her intake and output the past 24 hours has been recorded as 1780 in and 1805 out for near equality. She has put out 280 mL from the chest tube and there is no air leak. She weighs 102.5 kg today compared to 102.2 kg yesterday. PHYSICAL EXAMINATION: She has scattered rhonchi which clear with coughing on both sides. Percussion note is full to the diaphragm. Cardiac exam is without murmurs, clicks, gallops or rubs. I cannot feel her point of maximum impulse (PMI). S1, S2 are normal. Abdomen is soft and nontender. Bowel sounds are positive. There is no hepatomegaly. No costovertebral angle tenderness. Extremities show no pretibial edema. No calf tenderness. No differential swelling of the upper extremities. Skin is warm, dry and perfused without cyanosis or mottling, including that of the nail beds and the knees. Neck is supple. There is no jugular venous distention, no subcutaneous emphysema. Trachea is midline. Mouth shows her mucous membranes to be pink and moist. Lips and commissures without lesions. There is no thrush. Eyes show her pupils to be equal and reactive. Extraocular motions intact. Sclerae anicteric. Neurologic shows II-XII intact along with gross motor and gross sensation intact. Gait is not tested. Psychiatric shows her to be awake and alert, oriented times three with appropriate mood and affect and conversational. She did walk down to x-ray today and did well according to the nursing staff. Her white count is down to 9.0 with a hemoglobin and hematocrit of 11.9 and 37.3 , down from 13.0 and 39.2 yesterday. Platelet count is 325 with a differential that shows 64% neutrophils, 24% lymphocytes, 6% monocytes. There are no immature forms. No toxic granulations. Electrolytes are normal with a BUN and creatinine of 14 and 0.69, a glucose of 107 and a calcium of 8.2. Her chest x-ray today shows her lung fully expanded to the chest wall. Costophrenic angles are sharp. There is obligate volume loss secondary to the lobectomy. Chest tube is in good place and there are no infiltrates. IMPRESSION: 1. Postoperative day #5 status post left lower lobectomy. 2. Typical carcinoid [id number] or stage 1A disease. 3. Hypertension. 4. Gastroesophageal reflux disease. 5. Psoriasis. PLAN AND DISCUSSION: I will discontinue her chest tube today even though she has put out 280 mL. I will continue to diurese her. Will wean her epidural and discontinue her Iverson catheter. Will plan for discharge in the morning. GOPI
[2016-09-17] MEDS: NORCO, ANEXSIA 5/325MG TABLET (HYDROcodone/ACETAMINOPHEN) PO PRN ×3 (15:55→22:01)
[2016-09-17] MEDS: CALCIPOTRIENE CREAM 0.005% 60GM TOP SCH (21:55)
[2016-09-18] MEDS: PERCOCET 5MG/325MG TAB PO PRN ×2 (01:15→05:52)
[2016-09-18] MEDS: LEVALBUTEROL 1.25 MG/0.5 ML CONCENTRATE NEB NEB SCH ×3 (02:00→13:12)
[2016-09-18 04:00] VITALS: BP 150/80
[2016-09-18] MEDS: SLF 3 ML SYR IV SCH (05:52)
[2016-09-18 05:53] LABS: BASO % 0.3 % (0.0-1.0); EOS # 0.4 K/mm3 (0.0-0.50); EOS % 3.7 % (0.0-3.0); LARGE UNSTAINED CELL # 0.1 K/mm3 (0.0-0.4); LARGE UNSTAINED CELL % 1.3 % (0.0-4.0); LYMPH # 2.4 K/mm3 (1.5-4.5); MEAN CORPUSCULAR HGB CONC 33.6 g/dl (32.0-36.5); MEAN CORPUSCULAR VOLUME 86.2 fl (80.0-96.0); MONO # 0.6 K/mm3 (0.0-0.8); MONO % 6.1 % (0.0-5.0); NEUTROPHILS # 6.1 K/mm3 (1.8-7.7); NEUTROPHILS % 64.7 % (36.0-66.0); PLATELET COUNT, AUTOMATED 340 k/mm3 (150-450); RED CELL DISTRIBUTION WIDTH 13.8 % (11.5-14.5); WHITE BLOOD COUNT 9.4 K/mm3 (4.0-10.0)
[2016-09-18 06:22] LABS: ANION GAP 6 MEQ/L (8-16); BLOOD UREA NITROGEN 13 MG/DL (7-18); CALCIUM LEVEL 8.5 MG/DL (8.5-10.1); CARBON DIOXIDE LEVEL 31 MEQ/L (21-32); CHLORIDE LEVEL 99 MEQ/L (98-107); CREATININE FOR GFR 0.68 MG/DL (0.55-1.02); GLOMERULAR FILTRATION RATE > 60.0 (>51); GLUCOSE, FASTING 106 MG/DL (70-105); POTASSIUM SERUM 3.8 MEQ/L (3.5-5.1); SODIUM LEVEL 136 MEQ/L (136-145)
[2016-09-18] MEDS: NORCO, ANEXSIA 5/325MG TABLET (HYDROcodone/ACETAMINOPHEN) PO PRN (07:55)
[2016-09-18 08:00] VITALS: BP 144/74
[2016-09-18 09:04] VITALS: BP 144/74
[2016-09-18] MEDS: DOCUSATE SODIUM 100 MG CAP PO SCH (09:04)
[2016-09-18] MEDS: LISINOPRIL 10 MG TAB PO SCH (09:04)
[2016-09-18] MEDS: HEPARIN SOD (PORCINE) 5000 UNITS/ML VIAL SC SCH (09:04)
[2016-09-18] MEDS: AZELASTINE 137MCG NASAL SPY 30 ML (ASTELIN) SCH (09:04)
[2016-09-18] MEDS: MOM 30ML SUSPENSION UDC PO SCH (09:05)
--- NOTE | 2016-09-18 10:05 | REP ---
CHEST, TWO VIEWS: HISTORY: Followup. Status post left lower lobectomy. COMPARISON: Yesterday. The left-sided thoracotomy tubes have been removed. There is no evidence of a pneumothorax. The lung feliciano are unchanged. The cardiomediastinal silhouette is unchanged. The osseous structures are unchanged. IMPRESSION: Removal of the left-sided thoracotomy tubes. Otherwise, no change. Signed by Adair Viveros DO 09/18/2016 10:24 A
[2016-09-18] MEDS ORDERED: PERCOCET PO (12:06)
[2016-09-18] MEDS ORDERED: MACR100C3 PO (12:11)
--- NOTE | 2016-09-19 06:14 | DSES ---
DATE OF ADMISSION: 09/12/2016 DATE OF DISCHARGE: 09/18/2016 DISCHARGE DIAGNOSES: 1. Postoperative six status left lower lobectomy. 2. Typical carcinoid tumor [id number] or Stage IA disease. 3. Hypertension. 4. Gastroesophageal reflux disease. 5. Psoriasis. HOSPITAL COURSE: The patient is a 61-year-old, white female who underwent a low dose early detection CT scan of her chest at the end of July. She was found to have a left lower lobe nodule. She had no symptomatology. Her past medical history is significant for hypertension, gastroesophageal reflux disease and psoriasis. She underwent a needle biopsy of her lesion which ended up in a pneumothorax for which she needed a chest tube. The diagnosis came back carcinoid and she was therefore taken to the operating room where she underwent a left lower lobectomy and complete mediastinal node dissection. Pathology revealed her to have a typical carcinoid with the above staging. She had a fairly benign postoperative course except for the first postoperative night where she had her epidural replaced. Her chest tubes were removed on the fifth postoperative day after cessation of excess drainage and air leak. Her chest x-ray on discharge showed her lung to be fully expanded to the chest wall. Her discharge hemoglobin and hematocrit are 12.4 and 36.9 with a discharge weight count of 9.4. Platelet count is 340. Her discharge chemistry showed normal electrolytes with a potassium of 3.8 and a BUN and creatinine of 13 and 0.65. Discharge x-ray shows her lung to be fully expanded to the chest wall with costophrenic angle sharp and no air space. There are no infiltrates. She is being discharged today on her home medications which include calcipotriene 0.005% topical at bedtime, clobetasol topical at bedtime, lisinopril 10 mg daily, loratadine 10 mg daily, omeprazole 40 mg daily, and vitamin D 15,000 units weekly. She is also being discharged on Percocet 5/325 every 4 hours as needed pain. She has been advised not to drive for the next two weeks while on narcotic medication. She will return to see me in one week with a chest x-ray and postoperative followup.
== END 2016-09-18 13:50 | disposition home or self-care (01) | DRG 164 ==
LOC: M OR 07:17 → M PCU 14:45
PROVIDERS: ADMIT Thoracic Surgery (Cardiothoracic Vascular Surgery); ATTEND Thoracic Surgery (Cardiothoracic Vascular Surgery)
PROC: 07B70ZX Excision of Thorax Lymphatic, Open Approach, Diagnostic (ICD-10-PCS; 2016-09-12)
PROC: 0BBJ0ZX Excision of Left Lower Lung Lobe, Open Approach, Diagnostic (ICD-10-PCS; principal; 2016-09-12 09:00)
DX: J95.811 Postprocedural pneumothorax (principal); C34.30 Malignant neoplasm of lower lobe, unspecified bronchus or lung; R91.8 Other nonspecific abnormal finding of lung field; I10 Essential (primary) hypertension; K21.9 Gastro-esophageal reflux disease without esophagitis; L40.8 Other psoriasis; Z79.899 Other long term (current) drug therapy; Z88.0 Allergy status to penicillin; Z88.8 Allergy status to other drugs, medicaments and biological substances

== ENCOUNTER → 2016-09-26 | Outpatient (CLI) | payer OTHER ==
[~2016-09-26] MED LIST changes: +MACR100C3 PO; +PERCOCET PO
--- NOTE | 2016-09-26 08:46 | REP ---
Clinical: Malignant neoplasm of the left hemithorax. Technique: PA and lateral. Comparison: 09/18/2016. Findings: Subtle ill-defined opacity to the left lower lobe is suggested with loss of the diaphragmatic silhouette and costophrenic angle. Findings remain stable and similar to prior examination. The remainder of the bilateral aerated lung feliciano are clear and without obvious focal consolidation. No definite effusion. No pneumothorax. Small surgical clips in the left hilar region consistent with prior surgery. The mediastinum and cardiac silhouette are otherwise normal. Skeletal structures are intact; old left rib fractures noted. Impression: Stable postsurgical changes and opacity involving the left lower lung zone. No obvious acute process when compared to 09/18/2016. Signed by Jay Paredes MD 09/26/2016 08:36 A
== END ==
LOC: M SMT 08:15
PROVIDERS: ATTEND Thoracic Surgery (Cardiothoracic Vascular Surgery)
DX: C34.32 Malignant neoplasm of lower lobe, left bronchus or lung (principal)

== ENCOUNTER → 2016-10-17 | Outpatient (CLI) | payer OTHER ==
--- NOTE | 2016-10-17 10:58 | REP ---
CHEST, TWO VIEWS: HISTORY: Neoplasm. COMPARISON: 09/26/2016. Parenchymal density is present in the left lower lobe unchanged compared to the previous study. The right lung is clear. The heart is normal in size. The pulmonary vasculature is normal in appearance. The bony structure is intact. IMPRESSION: Left lower lobe parenchymal density unchanged compared to the previous study. Signed by Allan Mendiola MD 10/17/2016 11:01 A
== END ==
LOC: M SMT 09:35
PROVIDERS: ATTEND Thoracic Surgery (Cardiothoracic Vascular Surgery)
DX: C34.82 Malignant neoplasm of overlapping sites of left bronchus and lung (principal)

== ENCOUNTER 2016-10-24 07:28 | Emergency (ER) | payer OTHER ==
[~2016-10-24] VITALS: Ht 162.6 cm; Wt 97.5 kg
[2016-10-24] MEDS ORDERED: NS 1,000 ML IV SCH (07:40)
[2016-10-24] MEDS ORDERED: ONDANSETRON 4MG/2ML VIAL (J2405) IV ONE ×2 (07:45→12:45)
[2016-10-24 08:04] LABS: BASO % 0.3 % (0.0-1.0); EOS # 0.2 K/mm3 (0.0-0.50); EOS % 1.3 % (0.0-3.0); LARGE UNSTAINED CELL # 0.1 K/mm3 (0.0-0.4); LARGE UNSTAINED CELL % 0.9 % (0.0-4.0); LYMPH # 1.9 K/mm3 (1.5-4.5); LYMPH % 15.7 % (24.0-44.0); MEAN CORPUSCULAR HEMOGLOBIN 28.9 pg (27.0-33.0); MEAN CORPUSCULAR HGB CONC 34.2 g/dl (32.0-36.5); MEAN CORPUSCULAR VOLUME 84.5 fl (80.0-96.0); MONO # 0.5 K/mm3 (0.0-0.8); NEUTROPHILS % 77.9 % (36.0-66.0); PLATELET COUNT, AUTOMATED 403 k/mm3 (150-450); RED CELL DISTRIBUTION WIDTH 13.5 % (11.5-14.5); WHITE BLOOD COUNT 11.5 K/mm3 (4.0-10.0)
[2016-10-24] MEDS: MORPHINE 4 MG/ML 1ML SYRINGE IV PRN ×2 (08:04→08:28)
--- NOTE | 2016-10-24 08:24 | ECGEPIP ---
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
[2016-10-24 08:27] LABS: INR 1.03
--- NOTE | 2016-10-24 08:27 | REP ---
Clinical: Chest pain . Comparison: 10/17/2016 . Findings: The mediastinum and cardiac silhouette are stable and within normal limits for portable technique. Left lower lobe/retrocardiac opacity cannot be excluded. No further consolidation, effusion, or pneumothorax. Skeletal structures are intact. Impression: Left lower lobe/retrocardiac opacity. Signed by Jay Paredes MD 10/24/2016 08:18 A
[2016-10-24 08:51] LABS: ALBUMIN 4.1 GM/DL (3.2-5.2); ALBUMIN/GLOBULIN RATIO 1.03 (1.00-1.93); ALKALINE PHOSPHATASE 125 U/L (45-117); ALT/SGPT 53 U/L (12-78); ANION GAP 10 MEQ/L (8-16); AST/SGOT 36 U/L (15-37); BILIRUBIN,DIRECT < 0.1 MG/DL (0.0-0.2); BILIRUBIN,TOTAL 0.3 MG/DL (0.2-1.0); BLOOD UREA NITROGEN 15 MG/DL (7-18); CALCIUM LEVEL 9.4 MG/DL (8.5-10.1); CARBON DIOXIDE LEVEL 24 MEQ/L (21-32); CHLORIDE LEVEL 104 MEQ/L (98-107); CREATININE FOR GFR 0.71 MG/DL (0.55-1.02); GLOMERULAR FILTRATION RATE > 60.0 (>51); GLUCOSE, FASTING 128 MG/DL (70-105); POTASSIUM SERUM 4.3 MEQ/L (3.5-5.1); SODIUM LEVEL 138 MEQ/L (136-145); TOTAL PROTEIN 8.1 GM/DL (6.4-8.2)
--- NOTE | 2016-10-24 09:30 | REP ---
CT CHEST PERFORMED WITHOUT IV CONTRAST: Sagittal and coronal reconstruction images are performed. Comparison made with prior study of 08/09/2016. Since that prior exam the patient has had surgery in the left lower hemithorax. There are metallic clips in the left infrahilar region. There is a small left effusion. There is mild left basilar atelectasis/infiltrate. Right lung demonstrates no infiltrate. I do not see any significantly enlarged mediastinal or hilar lymph nodes although this study is limited without IV contrast. The heart is not enlarged. There is no pericardial effusion. There are mild degenerative changes of the spine. IMPRESSION: Small left pleural effusion with adjacent left basilar atelectasis/infiltrate. Adjacent metallic clips status post recent lung surgery. Signed by Titi Horn MD 10/24/2016 05:10 P
--- NOTE | 2016-10-24 09:51 | REP ---
CT ABDOMEN AND PELVIS WITHOUT IV CONTRAST: CT abdomen and pelvis performed without oral or IV contrast. Sagittal and coronal reconstruction images are performed. The liver, spleen, adrenals, pancreas and kidneys are grossly unremarkable. No renal or ureteral calculus is seen. There is no hydroureteronephrosis. There are mild to moderate atherosclerotic calcifications of the abdominal aorta without aneurysm. There is no adenopathy. There is no free air or free fluid. No bowel wall thickening is seen. There is mild sigmoid diverticulosis without evidence of acute diverticulitis. The appendix is not inflamed. No pelvic mass is seen. The patient appears to have had a hysterectomy. The urinary bladder is not well distended and not well evaluated. IMPRESSION: No evidence of appendicitis. No evidence of renal, ureteral or bladder calculus and no hydroureteronephrosis. Mild sigmoid diverticulosis. Signed by Titi Horn MD 10/24/2016 05:10 P
[2016-10-24] MEDS ORDERED: MORPHINE 4 MG/ML 1ML SYRINGE IV ONE ×2 (10:00→10:30)
[2016-10-24] MEDS ORDERED: ISOVUE-370 76% 100ML VIAL (Q9967) As Ordered ONE (10:23)
--- NOTE | 2016-10-24 12:19 | REP ---
CT ANGIO CHEST: HISTORY: Chest pain. CONTRAST: Isovue 370, 75 mL. COMPARISON: CT chest 10/24/2016. There are no filling defects in the main, right and left pulmonary arteries or their branches. The left pulmonary artery is decreased in size. This is likely secondary to previous surgery. There is loss of volume in the left hemithorax. A small area of atelectasis or infiltrate is present in the left lower lobe. A small left pleural effusion is present. The right lung is clear. Several small lymph nodes less than 1 cm in size are present in the mediastinum. The heart is normal in size. Degenerative change is present in the thoracic spine. IMPRESSION: 1. There is no pulmonary embolism. 2. Left lower lobe atelectasis or infiltrate. 3. Small left pleural effusion. Signed by Allan Mendiola MD 10/24/2016 12:25 P
[2016-10-24] MEDS ORDERED: HYDROmorphone HCL 1 MG/ML SYRINGE (J1170) IV PRN (12:45)
[2016-10-24 13:25] VITALS: BP 140/72
--- NOTE | 2016-10-25 12:05 | ED PDOC ---
Post-Departure Follow-Up rui lazar faxed formal report of cxr for fu Mor Vaughn MD Oct 25, 2016 12:05
== END 2016-10-24 13:26 | disposition home or self-care (01) ==
LOC: M ED 08:25
DX: M54.9 Dorsalgia, unspecified (principal); R07.9 Chest pain, unspecified; Z85.118 Personal history of other malignant neoplasm of bronchus and lung; Z90.2 Acquired absence of lung [part of]; J90 Pleural effusion, not elsewhere classified; K57.30 Diverticulosis of large intestine without perforation or abscess without bleeding; Z79.899 Other long term (current) drug therapy; Z88.1 Allergy status to other antibiotic agents; Z88.0 Allergy status to penicillin; Z88.8 Allergy status to other drugs, medicaments and biological substances; Z88.6 Allergy status to analgesic agent
CPT/HCPCS: 71010; 71250; 71275; 74176; 80048; 80076; 81001; 82550; 82553; 83690; 85025; 85610; 93005; 93041; 94760; 96374; 96375; 96376; 99285; J1170; J2405; Q9967

== ENCOUNTER → 2016-11-07 | Outpatient (CLI) | payer OTHER ==
--- NOTE | 2016-11-07 12:14 | REP ---
PA and lateral chest: Comparisons are the PA and lateral chest 10/17/2016 and portable chest of 10/24/2016 [address] well as chest CT of 10/24/2016. The patient has had a left lower lobectomy. There are surgical clips in the left hilus and left paramediastinal zone, unchanged. There is volume loss in the left hemithorax. There is a fracture of the left fifth rib posterior laterally. All of these findings are unchanged. The left hemidiaphragm is obscured. This is nonspecific and may be secondary to the left lower lobectomy and could represent a lower lobe effusion or infiltrate, however, these are not confirmed on the lateral view. The CT of 10/24/2016 identified a small left pleural effusion. Right lung is clear. Cardiac size is normal. The nica, mediastinum, and bony thorax are unremarkable. Impression: Left lower lobectomy. Left hemidiaphragm is obscured, nonspecific, postsurgical change versus effusion or infiltrate. The appearance is unchanged from recent prior plain film studies of 10/17/2016 and 10/24/2016. The CT of 10/24/2016 identified a small left pleural effusion. Signed by Titi Jones MD 11/07/2016 09:37 A
== END ==
LOC: M SMT 08:18
PROVIDERS: ATTEND Thoracic Surgery (Cardiothoracic Vascular Surgery)
DX: C34.82 Malignant neoplasm of overlapping sites of left bronchus and lung (principal)

== ENCOUNTER → 2016-11-09 | Outpatient (REF) | payer OTHER | LOC: M SFHCWAGY 13:08 | PROVIDERS: ATTEND Nurse Practitioner Women's Health | DX: Z12.72 Encounter for screening for malignant neoplasm of vagina (principal) ==

== ENCOUNTER → 2016-12-05 | Outpatient (CLI) | payer OTHER ==
[~2016-12-05] MED LIST changes: -COUM2.5T11 PO; +COUM2.5T17 PO; -MACR100C3 PO; +MACR100C43 PO; +PERC5TAB12 PO; -PERC5TAB6 PO
--- NOTE | 2016-12-21 09:39 | SLEEPCENT ---
DATE OF PROCEDURE: 12/05/2016 REFERRING PROVIDER: Mary Alice Lou NP INTERPRETATION: Nocturnal recording polysomnography was performed for the evaluation of sleep apnea syndrome symptoms consisting of excessive daytime sleepiness, snoring, observed apnea, gasping respirations, and nonrestorative sleep. She had the additional comorbidity of hypertension. A total of 7 hours and 30 minutes of data was reviewed with 247 minutes of sleep identified. Sleep latency was 18.5 minutes. Rapid eye movement( REM) latency was 200.5 minutes. No slow-wave sleep was identified. Sleep efficiency was decreased at 55.5%. Electrocardiogram (EKG) shows normal sinus rhythm with an average heart rate of 94 beats per minute. Speeding and slowing was noted surrounding some respiratory events. No epileptiform discharge observed. There were 56 respiratory events identified of 10 seconds in duration or longer for an apnea-hypopnea index (AHI) of 13.6. The events were predominantly obstructive, apnea/hypopneas. Respiratory event related arousal (RERA) index was 1.5, giving a total respiratory disturbance index (RDI) of 15.1. Mean oxygen saturation for the study was 93% with a minimum recorded value of 86%. Arousal index was 23.6 with the majority of the arousals related to limb movements. Periodic limb movement index was elevated at 45.9. IMPRESSION: 1. Obstructive sleep apnea, mild/moderate. 2. Periodic limb movements, severe. RECOMMENDATIONS: Recommend patient return to the sleep disorder center for the determination of pressure therapy. Pending that intervention, alcohol and sedative usage should be avoided and care should be then when operating motor vehicles. GOPI
== END ==
LOC: M SLEEP 19:25
PROVIDERS: ATTEND Internal Medicine Pulmonary Disease
DX: G47.30 Sleep apnea, unspecified (principal)

== ENCOUNTER → 2016-12-18 | Outpatient (CLI) | payer OTHER ==
--- NOTE | 2016-12-22 20:51 | SLEEPCENT ---
DATE OF PROCEDURE: 12/18/2016 REFERRING PROVIDER: Ms. Mary Alice Lou NP INTERPRETATION: Nocturnal polysomnography was performed for the determination of pressure therapy in this person with mild/moderate obstructive sleep apnea with an apnea-hypopnea index (AHI) of 13.6 and an respiratory disturbance index (RDI) of 15.1 with associated symptoms, excessive daytime sleepiness, snoring, observed apnea, gasping respirations, and nonrestorative sleep. A total of 7 hours and 41 minutes of data was reviewed with 339 minutes of sleep identified. Sleep latency was 29 minutes. Rapid eye movement (REM) latency was 121.5 minutes. No slow-wave sleep was observed. Sleep efficiency was 74.4%. EKG showed normal sinus rhythm with an average heart rate of 88. Frequent premature ventricular contractions (PVCs) were observed. No epileptiform discharge was noted. The patient had been fit with a Respironics Melissa View full face mask of small size, 4 cm of water pressure had been applied to the circuit and the lights were dimmed. Continuous positive airway pressure (CPAP) initially begun at 4 cm of water pressure was taken to a high of 9 cm of water pressure, although she appeared to do best on a pressure of 7 cm. On this pressure, her AHI was 0, as was her respiratory arousal index (MEDINA). Oxygen saturation jorge was in the 90th percentile. Periodic limb movements were elevated at 39.1. REM sleep was seen on this pressure with a reasonable waveform but no supine REM sleep was observed. IMPRESSION: 1. Obstructive sleep apnea syndrome (G47.33), mild/moderate, reasonably palliated on CPAP at 7 cm of water pressure. The weakness of the study is that no supine REM sleep was observed. RECOMMENDATIONS: Recommend continuation of CPAP therapy at the above pressure via a small Respironics Melissa View full face mask or mask of her preference. Clinical correlation will be necessary to ensure eradication of symptoms.
== END ==
LOC: M SLEEP 19:35
PROVIDERS: ATTEND Internal Medicine Pulmonary Disease
DX: G47.33 Obstructive sleep apnea (adult) (pediatric) (principal)

== ENCOUNTER → 2017-01-06 | Outpatient (CLI) | payer OTHER ==
--- NOTE | 2017-01-06 15:03 | REPMRS ---
Patient History The patient states she had a clinical breast exam in Patient has history of lung cancer at age 61. Family history of breast cancer in mother at age 78. Digital Woman Screen Mammo: January 06, 2017 - Exam #: [id number] Bilateral CC and MLO view(s) were taken. Technologist: Agnieszka Lino, Technologist Prior study comparison: September 30, 2015, digital woman screen mammo performed at [facility]. September 12, 2014, digital woman screen mammo performed at [facility] to [facility]. FINDINGS: There are scattered fibroglandular densities. There has been no change in the appearance of the mammogram from the prior studies. There is a mild amount of residual fibroglandular tissue which is fairly symmetric. There is no interval development of dominant mass, architectural distortion, or clustered microcalcification suggestive of malignancy. ASSESSMENT: BI-RADS/ACR category 1 mammogram. Negative. Recommendation Routine screening mammogram in 1 year (for women over age 40). This mammogram was interpreted with the aid of an FDA-approved computer-aided dectection system. Electronically Signed By: Titi Horn MD 01/06/17 [id number]
== END ==
LOC: M WHC 12:41
PROVIDERS: ATTEND Nurse Practitioner Women's Health
DX: Z12.31 Encounter for screening mammogram for malignant neoplasm of breast (principal)

== ENCOUNTER → 2017-02-24 | Outpatient (CLI) | payer OTHER ==
[2017-02-24 15:09] LABS: MEAN CORPUSCULAR HEMOGLOBIN 27.3 pg (27.0-33.0); MEAN CORPUSCULAR HGB CONC 31.2 g/dl (32.0-36.5); MEAN CORPUSCULAR VOLUME 87.4 fl (80.0-96.0); RED CELL DISTRIBUTION WIDTH 13.8 % (11.5-14.5); WHITE BLOOD COUNT 8.1 10^3/uL (4.0-10.0)
[2017-02-24 15:10] LABS: ALBUMIN 4.2 GM/DL (3.2-5.2); ALBUMIN/GLOBULIN RATIO 1.08 (1.00-1.93); ALKALINE PHOSPHATASE 105 U/L (45-117); ALT/SGPT 46 U/L (12-78); ANION GAP 4 MEQ/L (8-16); AST/SGOT 29 U/L (15-37); BILIRUBIN,TOTAL 0.5 MG/DL (0.2-1.0); BLOOD UREA NITROGEN 14 MG/DL (7-18); CALCIUM LEVEL 9.4 MG/DL (8.5-10.1); CARBON DIOXIDE LEVEL 30 MEQ/L (21-32); CHLORIDE LEVEL 103 MEQ/L (98-107); CHOLESTEROL LEVEL 222 MG/DL (<200); CREATININE FOR GFR 0.69 MG/DL (0.55-1.02); GLOMERULAR FILTRATION RATE > 60.0 (>51); GLUCOSE, FASTING 96 MG/DL (70-105); MAGNESIUM LEVEL 2.2 MG/DL (1.8-2.4); POTASSIUM SERUM 4.8 MEQ/L (3.5-5.1); SODIUM LEVEL 137 MEQ/L (136-145); TOTAL PROTEIN 8.1 GM/DL (6.4-8.2); TRIGLYCERIDES LEVEL 120 MG/DL (<150)
== END ==
LOC: M SMT 07:56
PROVIDERS: ATTEND Nurse Practitioner Family
DX: K21.9 Gastro-esophageal reflux disease without esophagitis (principal); E78.2 Mixed hyperlipidemia; E55.9 Vitamin D deficiency, unspecified

== ENCOUNTER → 2017-03-08 | Outpatient (CLI) | payer OTHER ==
--- NOTE | 2017-03-08 16:31 | REP ---
CT of the chest without IV contrast: Comparison is 10/24/2016. The patient has a left lower lobectomy. On the prior study there was a small left pleural effusion. This has resolved. There are no infiltrates or effusions on the study today. There are no masses or nodules. There is volume loss in the left hemithorax as a consequence of left lower lobectomy. There is no mediastinal adenopathy. There is no axillary adenopathy. The study is insensitive for hilar adenopathy in the absence of IV contrast. The thoracic aorta is unremarkable. Cardiac size is normal. The visualized upper abdominal contents are unremarkable. There is no adrenal mass. Impression: Left lower lobectomy. The previous small left pleural effusion has resolved. Otherwise, negative CT study of the chest. Signed by Titi Jones MD 03/08/2017 04:22 P
== END ==
LOC: M RAD 15:32
PROVIDERS: ATTEND Internal Medicine Pulmonary Disease
DX: R91.8 Other nonspecific abnormal finding of lung field (principal)

== ENCOUNTER 2017-07-21 12:29 | Emergency (ER) | payer OTHER ==
[2017-07-21] MEDS: ONDANSETRON 4MG/2ML VIAL (J2405) IV (14:11)
[2017-07-21] MEDS: ACETAMINOPHEN TAB 650MG DOSE (2X325MG) PO (14:12)
[2017-07-21] MEDS: NS 1,000 ML IV (14:12)
[2017-07-21 14:25] LABS: BASO % 0.1 % (0.0-1.0); EOS # 0.1 10^3/uL (0.0-0.50); EOS % 0.4 % (0.0-3.0); HEMATOCRIT 43.4 % (36.0-47.0); HEMOGLOBIN 14.3 g/dl (12.0-16.0); IMMATURE GRANULOCYTE % 0.4 % (0-3.0); LYMPH # 1.8 10^3/uL (1.5-4.5); LYMPH % 13.5 % (24.0-44.0); MEAN CORPUSCULAR HEMOGLOBIN 27.2 pg (27.0-33.0); MEAN CORPUSCULAR HGB CONC 32.9 g/dl (32.0-36.5); MEAN CORPUSCULAR VOLUME 82.7 fl (80.0-96.0); MONO # 0.8 10^3/uL (0.0-0.8); MONO % 5.5 % (0.0-5.0); NEUTROPHILS # 10.9 10^3/uL (1.8-7.7); NEUTROPHILS % 80.1 % (36.0-66.0); PLATELET COUNT, AUTOMATED 378 10^3/uL (150-450); RED BLOOD COUNT 5.25 10^6/uL (4.00-5.40); RED CELL DISTRIBUTION WIDTH 14.6 % (11.5-14.5); WHITE BLOOD COUNT 13.6 10^3/uL (4.0-10.0)
[2017-07-21 14:50] LABS: ALBUMIN/GLOBULIN RATIO 1.14 (1.00-1.93); ALKALINE PHOSPHATASE 98 U/L (45-117); ALT/SGPT 38 U/L (12-78); ANION GAP 10 MEQ/L (8-16); AST/SGOT 19 U/L (7-37); BILIRUBIN,DIRECT < 0.1 MG/DL (0.0-0.2); BILIRUBIN,TOTAL 0.3 MG/DL (0.2-1.0); BLOOD UREA NITROGEN 13 MG/DL (7-18); CALCIUM LEVEL 9.1 MG/DL (8.8-10.2); CARBON DIOXIDE LEVEL 25 MEQ/L (21-32); CHLORIDE LEVEL 104 MEQ/L (98-107); CPK CREATINE PHOSPHOKINASE 53 U/L (26-192); CREATININE FOR GFR 0.77 MG/DL (0.55-1.30); GLOMERULAR FILTRATION RATE > 60.0 (>45); GLUCOSE, FASTING 115 MG/DL (70-100); POTASSIUM SERUM 4.3 MEQ/L (3.5-5.1); SODIUM LEVEL 139 MEQ/L (136-145); TOTAL PROTEIN 7.5 GM/DL (6.4-8.2); TROPONIN I < 0.02 NG/ML (< 0.10)
[2017-07-21 14:55] LABS: MB/CK RELATIVE INDEX 1.88 (< OR =4)
[2017-07-21] MEDS: KETOROLAC 30 MG/ML VIAL (J1885) IV (16:20)
[2017-07-21] MEDS: LevoFLOXacin 750 MG TABLET PO (18:05)
[2017-07-22 12:52] LABS: BEDSIDE GLUCOSE 116 MG/DL (80-115)
== END 2017-07-21 18:13 | disposition home or self-care (01) ==
LOC: M ED 12:29
DX: J01.90 Acute sinusitis, unspecified (principal); I10 Essential (primary) hypertension; K21.9 Gastro-esophageal reflux disease without esophagitis; E55.9 Vitamin D deficiency, unspecified; L40.9 Psoriasis, unspecified; K76.0 Fatty (change of) liver, not elsewhere classified; R91.1 Solitary pulmonary nodule; Z79.899 Other long term (current) drug therapy; Z88.0 Allergy status to penicillin; Z88.8 Allergy status to other drugs, medicaments and biological substances
CPT/HCPCS: J2405

== ENCOUNTER → 2017-08-30 | Outpatient (REF) | payer OTHER ==
[2017-08-30 18:53] LABS: ALBUMIN 4.3 GM/DL (3.2-5.2); ALBUMIN/GLOBULIN RATIO 1.16 (1.00-1.93); ALKALINE PHOSPHATASE 108 U/L (45-117); ALT/SGPT 39 U/L (12-78); ANION GAP 8 MEQ/L (8-16); AST/SGOT 24 U/L (7-37); BILIRUBIN,TOTAL 0.3 MG/DL (0.2-1.0); BLOOD UREA NITROGEN 19 MG/DL (7-18); CALCIUM LEVEL 9.4 MG/DL (8.8-10.2); CARBON DIOXIDE LEVEL 27 MEQ/L (21-32); CHLORIDE LEVEL 103 MEQ/L (98-107); CREATININE FOR GFR 0.74 MG/DL (0.55-1.30); GLOMERULAR FILTRATION RATE > 60.0 (>45); GLUCOSE, FASTING 87 MG/DL (70-100); POTASSIUM SERUM 4.4 MEQ/L (3.5-5.1); SODIUM LEVEL 138 MEQ/L (136-145)
[2017-09-01 10:08] LABS: TOTAL 25(OH) VITAMIN D 60.5 NG/ML (30.0-100.0)
== END ==
LOC: M SFHCPLAZ 15:23
DX: I10 Essential (primary) hypertension (principal); E55.9 Vitamin D deficiency, unspecified

== ENCOUNTER → 2018-01-18 | Outpatient (CLI) | payer OTHER | LOC: M WHC 15:21 | DX: Z12.31 Encounter for screening mammogram for malignant neoplasm of breast (principal) | CPT/HCPCS: 77067 ==

== ENCOUNTER → 2018-02-06 | Outpatient (REF) | payer OTHER ==
[2018-02-06 10:41] LABS: ALBUMIN 4.4 GM/DL (3.2-5.2); ALBUMIN/GLOBULIN RATIO 1.16 (1.00-1.93); ALKALINE PHOSPHATASE 111 U/L (45-117); ALT/SGPT 40 U/L (12-78); ANION GAP 10 MEQ/L (8-16); AST/SGOT 29 U/L (7-37); BILIRUBIN,TOTAL 0.4 MG/DL (0.2-1.0); BLOOD UREA NITROGEN 15 MG/DL (7-18); CALCIUM LEVEL 10.1 MG/DL (8.8-10.2); CARBON DIOXIDE LEVEL 27 MEQ/L (21-32); CHLORIDE LEVEL 102 MEQ/L (98-107); CHOLESTEROL LEVEL 221 MG/DL (<200); CHOLESTEROL RISK RATIO 5.666 (<5); CREATININE FOR GFR 0.74 MG/DL (0.55-1.30); GLOMERULAR FILTRATION RATE > 60.0 (>45); GLUCOSE, FASTING 101 MG/DL (70-100); HDL CHOLESTEROL 39 MG/DL (>40); LDL CHOLESTEROL 139 MG/DL (<100); NON-HDL-C 182 MG/DL; POTASSIUM SERUM 4.8 MEQ/L (3.5-5.1); SODIUM LEVEL 139 MEQ/L (136-145); TOTAL PROTEIN 8.2 GM/DL (6.4-8.2); TRIGLYCERIDES LEVEL 214 MG/DL (<150)
[2018-02-06 11:08] LABS: CREATININE, URINE 58.8 MG/DL; MALB URINE SIEMENS 5.2 MG/L
[2018-02-06 11:15] LABS: MAU/CREAT RATIO 8.9 MCG/MG (0.0-30.0)
== END ==
LOC: M SFHCPLAZ 07:42
DX: I10 Essential (primary) hypertension (principal); E78.2 Mixed hyperlipidemia; E55.9 Vitamin D deficiency, unspecified

== ENCOUNTER → 2018-02-22 | Outpatient (REF) | payer OTHER ==
[2018-02-22 18:35] LABS: HEMATOCRIT 41.8 % (36.0-47.0); HEMOGLOBIN 13.4 g/dl (12.0-15.5); MEAN CORPUSCULAR HEMOGLOBIN 27.1 pg (27.0-33.0); MEAN CORPUSCULAR HGB CONC 32.1 g/dl (32.0-36.5); MEAN CORPUSCULAR VOLUME 84.6 fl (80.0-96.0); PLATELET COUNT, AUTOMATED 357 10^3/uL (150-450); RED BLOOD COUNT 4.94 10^6/uL (4.00-5.40); RED CELL DISTRIBUTION WIDTH 14.5 % (11.5-14.5)
[2018-02-22 19:32] LABS: ERYTHROCYTE SEDIMENTATION RATE 14 mm/hr (0-30)
[2018-02-27 00:21] LABS: Lyme Disease IgG Ab 18 kDa Ban Absent (.); Lyme Disease IgG Ab 23 kDa Ban Absent (.); Lyme Disease IgG Ab 28 kDa Ban Absent (.); Lyme Disease IgG Ab 30 kDa Ban Absent (.); Lyme Disease IgG Ab 39 kDa Ban Present (.); Lyme Disease IgG Ab 41 kDa Ban Present (.); Lyme Disease IgG Ab 45 kDa Ban Absent (.); Lyme Disease IgG Ab 58 kDa Ban Absent (.); Lyme Disease IgG Ab 66 kDa Ban Absent (.); Lyme Disease IgG Ab 93 kDa Ban Absent (.); Lyme Disease IgG West Blot Int Negative (.); Lyme Disease IgG/IgM Antibodie <0.91 ISR (0.00-0.90); Lyme Disease IgM Ab 23 kDa Ban Absent (.); Lyme Disease IgM Ab 39 kDa Ban Present (.); Lyme Disease IgM Ab 41 kDa Ban Absent (.); Lyme Disease IgM Ab Quantitati 0.91 index (0.00-0.79); Lyme Disease IgM West Blot Int Negative (.)
== END ==
LOC: M SFHCPLAZ 15:54
DX: M79.10 Myalgia, unspecified site (principal)

== ENCOUNTER → 2018-03-02 | Outpatient (CLI) | payer OTHER | LOC: M RAD 15:16 | DX: R91.8 Other nonspecific abnormal finding of lung field (principal) | CPT/HCPCS: 71250 ==

== ENCOUNTER 2018-04-05 09:31 | Emergency (ER) | payer OTHER ==
[2018-04-05] MEDS: traMADol 50 MG TAB PO (10:04)
[2018-04-05] MEDS: CLINDAMYCIN 150 MG CAP PO (10:04)
== END 2018-04-05 10:18 | disposition home or self-care (01) ==
LOC: M ED 09:31
DX: K04.7 Periapical abscess without sinus (principal); K02.9 Dental caries, unspecified; I10 Essential (primary) hypertension; K21.9 Gastro-esophageal reflux disease without esophagitis; Z79.899 Other long term (current) drug therapy; Z88.0 Allergy status to penicillin; Z88.8 Allergy status to other drugs, medicaments and biological substances
CPT/HCPCS: 99283

== ENCOUNTER 2018-06-15 09:35 | Emergency (ER) | payer OTHER ==
[~2018-06-15] VITALS: Ht 162.6 cm; Wt 100.0 kg
[~2018-06-15 09:35] MED LIST changes: +AZEL1SPR3; +CLEO300C2 PO; -DRIS50002 PO; +DRIS50003 PO; +KETO10TAB PO; +LEVO750T13 PO; +TRAM50TA2 PO
[2018-06-15] MEDS ORDERED: IPRATROPIUM 0.5MG/ALBUTEROL 2.5MG INH SOL UD 3ML (DUONEB)(J7620) NEB ONE (10:15)
[2018-06-15 10:33] LABS: BASO % 0.2 % (0.0-1.0); EOS # 0.1 10^3/uL (0.0-0.50); EOS % 0.7 % (0.0-3.0); HEMATOCRIT 43.2 % (36.0-47.0); HEMOGLOBIN 13.9 g/dl (12.0-15.5); LYMPH # 1.9 10^3/uL (1.5-4.5); LYMPH % 19.9 % (24.0-44.0); MEAN CORPUSCULAR HEMOGLOBIN 27.7 pg (27.0-33.0); MEAN CORPUSCULAR HGB CONC 32.2 g/dl (32.0-36.5); MEAN CORPUSCULAR VOLUME 86.1 fl (80.0-96.0); MONO # 0.6 10^3/uL (0.0-0.8); MONO % 6.3 % (0.0-5.0); NEUTROPHILS % 72.7 % (36.0-66.0); PLATELET COUNT, AUTOMATED 350 10^3/uL (150-450); RED BLOOD COUNT 5.02 10^6/uL (4.00-5.40); WHITE BLOOD COUNT 9.6 10^3/uL (4.0-10.0)
--- NOTE | 2018-06-15 10:53 | REP ---
Chest x-ray: Two views. History: Dyspnea and cough. Comparison chest x-ray: July 21, 2017. Comparison chest CT study March 02, 2018. Findings: There is volume loss of the left hemithorax. The patient is status post prior left lower lobectomy. Minimal linear fibrosis is seen behind the heart in the left base. No pleural effusion is seen. The lung feliciano are otherwise clear. Heart is not enlarged. Pulmonary vasculature is not increased. Impression: Status post left thoracotomy changes. No acute disease. Electronically Signed by Mohan Hsu MD 06/15/2018 12:35 P
[2018-06-15 11:00] LABS: INFLUENZA A AMPLIFICATION NEGATIVE (NEGATIVE); INFLUENZA B AMPLIFICATION NEGATIVE (NEGATIVE)
[2018-06-15 11:11] LABS: ALBUMIN 4.1 GM/DL (3.2-5.2); ALT/SGPT 33 U/L (12-78); BILIRUBIN,DIRECT < 0.1 MG/DL (0.0-0.2); BILIRUBIN,TOTAL 0.4 MG/DL (0.2-1.0); BLOOD UREA NITROGEN 13 MG/DL (7-18); CALCIUM LEVEL 9.3 MG/DL (8.8-10.2); CARBON DIOXIDE LEVEL 29 MEQ/L (21-32); CHLORIDE LEVEL 102 MEQ/L (98-107); CK-MB VALUE MASS < 1.0 NG/ML (<3.6); CPK CREATINE PHOSPHOKINASE 122 U/L (26-192); CREATININE FOR GFR 0.74 MG/DL (0.55-1.30); GLOMERULAR FILTRATION RATE > 60.0 (>45); GLUCOSE, FASTING 103 MG/DL (70-100); MB/CK RELATIVE INDEX 0.82 (< OR =4); NT-PRO BNP 14 PG/ML (<125); POTASSIUM SERUM 4.6 MEQ/L (3.5-5.1); SODIUM LEVEL 136 MEQ/L (136-145); THYROXINE (T4) 11.6 UG/DL (4.5-12.0); TROPONIN I < 0.02 NG/ML (< 0.10)
[2018-06-15 11:32] VITALS: BP 138/63
[2018-06-15] MEDS ORDERED: PROAAER10 INH (11:40)
--- NOTE | 2018-06-16 08:38 | ECGEPIP ---
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
== END 2018-06-15 11:56 | disposition home or self-care (01) ==
LOC: M ED 09:35
DX: J45.901 Unspecified asthma with (acute) exacerbation (principal); I10 Essential (primary) hypertension; K21.9 Gastro-esophageal reflux disease without esophagitis; J34.2 Deviated nasal septum; Z85.118 Personal history of other malignant neoplasm of bronchus and lung; Z90.2 Acquired absence of lung [part of]; Z87.891 Personal history of nicotine dependence; Z88.0 Allergy status to penicillin; Z79.899 Other long term (current) drug therapy

== ENCOUNTER → 2018-07-16 | Outpatient (REF) | payer OTHER ==
[~2018-07-16] MED LIST changes: +PROAAER10 INH
[2018-07-16 15:39] LABS: ALT/SGPT 39 U/L (12-78); BILIRUBIN,TOTAL 0.2 MG/DL (0.2-1.0); BLOOD UREA NITROGEN 13 MG/DL (7-18); CALCIUM LEVEL 8.9 MG/DL (8.8-10.2); CARBON DIOXIDE LEVEL 25 MEQ/L (21-32); CHLORIDE LEVEL 105 MEQ/L (98-107); CREATININE FOR GFR 0.69 MG/DL (0.55-1.30); GLOMERULAR FILTRATION RATE > 60.0 (>45); GLUCOSE, FASTING 108 MG/DL (70-100); LIPASE 183 U/L (73-393); SODIUM LEVEL 140 MEQ/L (136-145); TOTAL PROTEIN 7.7 GM/DL (6.4-8.2)
[2018-07-16 15:45] LABS: BASO % 0.3 % (0.0-1.0); EOS # 0.1 10^3/uL (0.0-0.50); HEMATOCRIT 41.8 % (36.0-47.0); HEMOGLOBIN 13.5 g/dl (12.0-15.5); LYMPH # 2.3 10^3/uL (1.5-4.5); LYMPH % 24.4 % (24.0-44.0); MEAN CORPUSCULAR HEMOGLOBIN 27.4 pg (27.0-33.0); MEAN CORPUSCULAR HGB CONC 32.3 g/dl (32.0-36.5); MEAN CORPUSCULAR VOLUME 84.8 fl (80.0-96.0); MONO # 0.6 10^3/uL (0.0-0.8); MONO % 6.4 % (0.0-5.0); NEUTROPHILS # 6.4 10^3/uL (1.8-7.7); NEUTROPHILS % 67.2 % (36.0-66.0); PLATELET COUNT, AUTOMATED 340 10^3/uL (150-450); RED BLOOD COUNT 4.93 10^6/uL (4.00-5.40); WHITE BLOOD COUNT 9.5 10^3/uL (4.0-10.0)
== END ==
LOC: M SFHCPLAZ 13:54
PROVIDERS: ATTEND Family Medicine
DX: R10.13 Epigastric pain (principal)

== ENCOUNTER → 2018-08-14 | Outpatient (CLI) | payer OTHER ==
[2018-08-14 12:51] LABS: ALBUMIN 4.3 GM/DL (3.2-5.2); ALT/SGPT 39 U/L (12-78); BILIRUBIN,TOTAL 0.4 MG/DL (0.2-1.0); BLOOD UREA NITROGEN 12 MG/DL (7-18); CALCIUM LEVEL 9.5 MG/DL (8.8-10.2); CARBON DIOXIDE LEVEL 26 MEQ/L (21-32); CHLORIDE LEVEL 103 MEQ/L (98-107); CHOLESTEROL LEVEL 213 MG/DL (<200); CHOLESTEROL RISK RATIO 4.733 (<5); CREATININE FOR GFR 0.69 MG/DL (0.55-1.30); GLOMERULAR FILTRATION RATE > 60.0 (>45); GLUCOSE, FASTING 97 MG/DL (70-100); HDL CHOLESTEROL 45 MG/DL (>40); LDL CHOLESTEROL 139 MG/DL (<100); NON-HDL-C 168 MG/DL; SODIUM LEVEL 137 MEQ/L (136-145); TOTAL PROTEIN 8.1 GM/DL (6.4-8.2); TRIGLYCERIDES LEVEL 147 MG/DL (<150)
[2018-08-14 12:53] LABS: TOTAL 25(OH) VITAMIN D 26.2 NG/ML (30.0-100.0)
== END ==
LOC: M SMT 07:52
PROVIDERS: ATTEND Nurse Practitioner Family
DX: I10 Essential (primary) hypertension (principal); R73.01 Impaired fasting glucose; E78.2 Mixed hyperlipidemia; E55.9 Vitamin D deficiency, unspecified

== ENCOUNTER → 2018-09-11 | Outpatient (CLI) | payer OTHER ==
[~2018-09-11] MED LIST changes: +CLAR5TAB7 PO; +CLOB0.0526 TOP; +VITA1CAP25 PO
--- NOTE | 2018-09-12 06:40 | REP ---
Clinical: Abnormal lung findings. Technique: Axial noncontrast images from the thoracic inlet to the upper abdomen with coronal and sagittal re-formations. Comparison: 03/02/2018, 08/21/2017. Findings: Left-sided volume loss and pleuroparenchymal changes are stable and consistent with the given history of prior left lower lobectomy. A small 4 mm opacity in the anterior periphery of the right middle lobe (image 49) remains unchanged compared through 10/24/2016 and likely represent small focal scarring. No significant consolidation, nodule or mass lesion. No pleural effusion. No pneumothorax. Tracheobronchial tree is relatively patent. No obvious adenopathy. The mediastinum demonstrates stable atherosclerotic changes to the thoracic aorta and coronary arteries without aortic aneurysm or cardiomegaly. No pericardial effusion. Musculoskeletal structures demonstrate age-related changes without focal osseous abnormality. Limited upper abdomen demonstrates normal bilateral adrenal glands. Impression: Chronic postsurgical changes remain stable. No acute mediastinal or pleuroparenchymal process appreciated. Electronically Signed by Jay Paredes MD 09/12/2018 06:31 A
== END ==
LOC: M RAD 15:31
PROVIDERS: ATTEND Internal Medicine Pulmonary Disease
DX: R91.8 Other nonspecific abnormal finding of lung field (principal); Z85.110 Personal history of malignant carcinoid tumor of bronchus and lung; Z90.2 Acquired absence of lung [part of]

== ENCOUNTER 2018-09-14 07:05 | Day surgery (SDC) | payer OTHER ==
[~2018-09-14] VITALS: Ht 162.6 cm; Wt 101.6 kg
[~2018-09-14 07:05] MED LIST changes: +NS 1,000 ML IV ONE
[2018-09-14] MEDS ORDERED: PROPOFOL 500 MG/50 ML VIAL As Ordered ONE (07:33)
[2018-09-14] MEDS ORDERED: LIDOCAINE 2% INJ 100 MG/5 ML SDV (FOR ANES.) As Ordered ONE (08:47)
--- NOTE | 2018-09-14 09:01 | ROOR ---
Patient Name: Shira Jaramillo Procedure Date: 09/14/2018 8:41 AM Date of : 1955 Age: 63 Room: [facility] Gender: Female Note Status: Finalized Procedure: Upper Endoscopy + Biopsies Indications: Epigastric abdominal pain, Heartburn Providers: Riki Sexton MD Referring MD: Mary Alice Lou NP Requesting Provider: Medicines: Monitored Anesthesia Care Complications: No immediate complications. Procedure: Pre-Anesthesia Assessment: - The heart rate, respiratory rate, oxygen saturations, blood pressure, adequacy of pulmonary ventilation, and response to care were monitored throughout the procedure. The Endoscope was introduced through the mouth, and advanced to the second part of duodenum. The upper GI endoscopy was accomplished without difficulty. The patient tolerated the procedure well. Findings: The Z-line was variable and was found 40 cm from the incisors. Multiple biopsies were obtained with cold forceps for evaluation to rule out Gordillo's Esophagus randomly at the gastroesophageal junction. A small hiatal hernia was present. No other significant abnormalities were identified in a careful examination of the stomach. Biopsies were taken with a cold forceps in the gastric antrum for Helicobacter pylori testing. The exam was otherwise without abnormality. Impression: - Z-line variable, 40 cm from the incisors. - Small hiatal hernia. - The examination was otherwise normal. - Multiple biopsies were obtained at the gastroesophageal junction. - Biopsies were taken with a cold forceps for Helicobacter pylori testing. - The examination was otherwise normal. Recommendation: - Patient has a contact number available for emergencies. The signs and symptoms of potential delayed complications were discussed with the patient. Return to normal activities tomorrow. Written discharge instructions were provided to the patient. - High fiber diet. - Discharge patient to home. - Continue present medications. - Await pathology results. - Telephone GI clinic for pathology results in 1 week. - Return to referring physician. - The findings and recommendations were discussed with the patient's family. Riki Sexton MD Riki Sexton MD 09/14/2018 9:00:27 AM Electronically signed by Riki Sexton MD Number of Addenda: 0 Note Initiated On: 09/14/2018 8:41 AM Estimated Blood Loss: Estimated blood loss: none.
--- NOTE | 2018-09-14 09:14 | ROOR ---
Patient Name: Shira Jaramillo Procedure Date: 09/14/2018 8:42 AM Date of : 1955 Age: 63 Room: [facility] Gender: Female Note Status: Finalized Procedure: Total Colonoscopy to Cecum Indications: Last colonoscopy: 2013 Providers: Riki Sexton MD Referring MD: Mary Alice Lou NP Requesting Provider: Medicines: Monitored Anesthesia Care Complications: No immediate complications. Procedure: Pre-Anesthesia Assessment: - The heart rate, respiratory rate, oxygen saturations, blood pressure, adequacy of pulmonary ventilation, and response to care were monitored throughout the procedure. The Colonoscope was introduced through the anus and advanced to the cecum, identified by appendiceal orifice and ileocecal valve. The colonoscopy was performed without difficulty. The patient tolerated the procedure well. The quality of the bowel preparation was excellent. Findings: The perianal and digital rectal examinations were normal. Non-bleeding internal hemorrhoids were found during retroflexion. The hemorrhoids were small and Grade I (internal hemorrhoids that do not prolapse). Multiple small and large-mouthed diverticula were found in the recto-sigmoid colon, sigmoid colon and descending colon. The exam was otherwise without abnormality on direct and retroflexion views. Impression: - Non-bleeding internal hemorrhoids. - Diverticulosis in the recto-sigmoid colon, in the sigmoid colon and in the descending colon. - The examination was otherwise normal on direct and retroflexion views. - No specimens collected. - The exam was otherwise normal to the cecum. Recommendation: - Patient has a contact number available for emergencies. The signs and symptoms of potential delayed complications were discussed with the patient. Return to normal activities tomorrow. Written discharge instructions were provided to the patient. - High fiber diet. - Discharge patient to home. - Continue present medications. - Repeat colonoscopy in 5 years for screening purposes. - Return to referring physician. - The findings and recommendations were discussed with the patient's family. Riki Sexton MD Riki Sexton MD 09/14/2018 9:14:02 AM Electronically signed by Riki Sexton MD Number of Addenda: 0 Note Initiated On: 09/14/2018 8:42 AM Estimated Blood Loss: Estimated blood loss: none.
[2018-09-14 09:37] VITALS: BP 128/61
== END 2018-09-14 09:40 | disposition home or self-care (01) ==
LOC: M OPP 07:05
PROVIDERS: ATTEND Internal Medicine Gastroenterology
DX: K64.0 First degree hemorrhoids (principal); K57.30 Diverticulosis of large intestine without perforation or abscess without bleeding; R10.13 Epigastric pain; R12 Heartburn; K22.8 Other specified diseases of esophagus; K44.9 Diaphragmatic hernia without obstruction or gangrene; Z12.11 Encounter for screening for malignant neoplasm of colon

== ENCOUNTER → 2019-01-07 | Outpatient (CLI) | payer OTHER ==
[~2019-01-07] MED LIST changes: -NS 1,000 ML IV ONE
[2019-01-07 13:43] LABS: ALT/SGPT 35 U/L (12-78); BILIRUBIN,TOTAL 0.3 MG/DL (0.2-1.0); BLOOD UREA NITROGEN 16 MG/DL (7-18); CALCIUM LEVEL 9.4 MG/DL (8.8-10.2); CARBON DIOXIDE LEVEL 27 MEQ/L (21-32); CHLORIDE LEVEL 105 MEQ/L (98-107); CHOLESTEROL LEVEL 189 MG/DL (<200); CHOLESTEROL RISK RATIO 4.609 (<5); CREATININE FOR GFR 0.71 MG/DL (0.55-1.30); FREE T4 1.16 NG/DL (0.76-1.46); GLOMERULAR FILTRATION RATE > 60.0 (>45); GLUCOSE, FASTING 105 MG/DL (70-100); HDL CHOLESTEROL 41 MG/DL (>40); LDL CHOLESTEROL 123 MG/DL (<100); NON-HDL-C 148 MG/DL; POTASSIUM SERUM 4.8 MEQ/L (3.5-5.1); SODIUM LEVEL 137 MEQ/L (136-145); TOTAL 25(OH) VITAMIN D 65.3 NG/ML (30.0-100.0); TOTAL PROTEIN 7.5 GM/DL (6.4-8.2); TRIGLYCERIDES LEVEL 125 MG/DL (<150)
[2019-01-07 13:57] LABS: HEMOGLOBIN A1c 6.5 %
== END ==
LOC: M SMT 09:12
PROVIDERS: ATTEND Nurse Practitioner Family
DX: R73.01 Impaired fasting glucose (principal); I10 Essential (primary) hypertension; E78.2 Mixed hyperlipidemia; E55.9 Vitamin D deficiency, unspecified

== ENCOUNTER → 2019-01-24 | Outpatient (CLI) | payer OTHER ==
[~2019-01-24] MED LIST changes: -BISO5TAB5 PO; +BISO5TAB9 PO
--- NOTE | 2019-01-24 16:32 | REPMRS ---
Patient History The patient states she had a clinical breast exam in 01/2019. Family history of breast cancer at age 78 in mother. No Hormone Replacement Therapy 3D TOMOSYNTHESIS WAS PERFORMED. [facility] lifetime risk for breast cancer is 11.7%. Digital Woman Screen Mammo: January 24, 2019 - Exam #: [id number] Bilateral CC and MLO view(s) were taken. Technologist: Ritika Beard, Technologist Prior study comparison: January 18, 2018, bilateral digital woman screen mammo performed at [facility]. January 06, 2017, digital woman screen mammo performed at [facility]. FINDINGS: The breast tissue is heterogeneously dense. This may lower the sensitivity of mammography. There has been no change in the appearance of the mammogram from the prior studies. There is a moderate amount of residual fibroglandular tissue which is fairly symmetric. There is no interval development of dominant mass, areas of architectural distortion, or clustered microcalcification typical of malignancy. Assessment: BI-RADS/ACR category 1 mammogram. Negative Mammogram. Recommendation Routine screening mammogram in 1 year (for women over age 40). This mammogram was interpreted with the aid of an FDA-approved computer-aided dectection system. Electronically Signed By: Titi Horn MD 01/24/19 [id number]
== END ==
LOC: M WHC 15:32
PROVIDERS: ATTEND Nurse Practitioner Women's Health
DX: Z12.31 Encounter for screening mammogram for malignant neoplasm of breast (principal); Z80.3 Family history of malignant neoplasm of breast

== ENCOUNTER → 2019-01-30 | Outpatient (CLI) | payer OTHER ==
--- NOTE | 2019-01-31 01:38 | REP ---
Clinical: Acute right-sided rib pain Technique: Four views of the right hemithorax. Findings: Four views of the right hemithorax demonstrates no obvious acute rib fracture or pathology. Impression: Normal right rib series Electronically Signed by Jay Paredes MD 01/31/2019 01:29 A
--- NOTE | 2019-01-31 01:40 | REP ---
Clinical: thoracic pain. Technique: AP, lateral, and swimmers views. Findings: Alignment and kyphosis is maintained. Vertebral bodies intact. No acute fracture / compression injury or subluxation. Mild age-related degenerative changes include minimal endplate sclerosis with marginal osteophyte formation. Impression: Mild age-related changes. Electronically Signed by Jay Paredes MD 01/31/2019 01:32 A
== END ==
LOC: M SMT 15:25
PROVIDERS: ATTEND Nurse Practitioner Family
DX: M54.6 Pain in thoracic spine (principal)

== ENCOUNTER 2019-03-16 10:49 | Emergency (ER) | payer OTHER ==
[~2019-03-16] VITALS: Ht 162.6 cm; Wt 104.0 kg
[~2019-03-16 10:49] MED LIST changes: -OMEP40CA2 PO; +OMEP40CA97 PO
[2019-03-16 12:26] LABS: BASO % 0.2 % (0.0-1.0); EOS # 0.1 10^3/uL (0.0-0.5); EOS % 1.1 % (0.0-3.0); HEMATOCRIT 43.8 % (36.0-47.0); HEMOGLOBIN 13.9 g/dl (12.0-15.5); LYMPH # 1.9 10^3/uL (1.5-5.0); LYMPH % 21.1 % (24.0-44.0); MEAN CORPUSCULAR HEMOGLOBIN 27.3 pg (27.0-33.0); MEAN CORPUSCULAR HGB CONC 31.7 g/dl (32.0-36.5); MEAN CORPUSCULAR VOLUME 85.9 fl (80.0-96.0); MONO # 0.7 10^3/uL (0.0-0.8); MONO % 8.2 % (0.0-5.0); NEUTROPHILS # 6.2 10^3/uL (1.5-8.5); NEUTROPHILS % 69.2 % (36.0-66.0); PLATELET COUNT, AUTOMATED 337 10^3/uL (150-450); WHITE BLOOD COUNT 8.9 10^3/uL (4.0-10.0)
[2019-03-16 12:53] LABS: ALBUMIN 3.8 GM/DL (3.2-5.2); ALT/SGPT 32 U/L (12-78); AMYLASE 45 U/L (25-115); BILIRUBIN,TOTAL 0.3 MG/DL (0.2-1.0); BLOOD UREA NITROGEN 15 MG/DL (7-18); CALCIUM LEVEL 9.2 MG/DL (8.8-10.2); CARBON DIOXIDE LEVEL 27 MEQ/L (21-32); CHLORIDE LEVEL 105 MEQ/L (98-107); CREATININE FOR GFR 0.77 MG/DL (0.55-1.30); GLOMERULAR FILTRATION RATE > 60.0 (>45); GLUCOSE, FASTING 117 MG/DL (70-100); LIPASE 173 U/L (73-393); POTASSIUM SERUM 3.9 MEQ/L (3.5-5.1); SODIUM LEVEL 137 MEQ/L (136-145); TOTAL PROTEIN 8.2 GM/DL (6.4-8.2)
[2019-03-16] MEDS ORDERED: NS 1,000 ML IV ONE (13:00)
[2019-03-16] MEDS ORDERED: ISOVUE-370 76% 100ML VIAL (Q9967) As Ordered ONE (13:03)
[2019-03-16 13:19] LABS: APPEARANCE, URINE CLEAR (CLEAR); BACTERIA, URINE AUTO NEGATIVE (NEGATIVE); BILIRUBIN, URINE AUTO NEGATIVE (NEGATIVE); BLOOD, URINE BLOOD NEGATIVE (NEGATIVE); COLOR, URINE STRAW (YELLOW); GLUCOSE, URINE (UA) AUTO NEGATIVE (NEGATIVE); KETONE, URINE AUTO NEGATIVE (NEGATIVE); LEUKOCYTE ESTERASE, URINE AUTO NEGATIVE (NEGATIVE); NITRITE, URINE AUTO NEGATIVE (NEGATIVE); PROTEIN, URINE AUTO NEGATIVE (NEGATIVE); RBC, URINE AUTO 1 /HPF (0-3); SPECIFIC GRAVITY URINE AUTO 1.003 (1.002-1.035); SQUAMOUS EPITHELIAL CELL UR AU 0 /HPF (0-6); UROBILINOGEN, URINE AUTO 0.2 mg/dL (0.0-2.0); WBC, URINE AUTO 1 /HPF (0-3)
--- NOTE | 2019-03-16 13:43 | REP ---
Clinical: Right upper quadrant pain. Technique: Axial contrast enhanced images from the lung bases to the pubic symphysis oozing 100 ml Isovue 370 intravenous contrast material coronal and sagittal re-formations. Comparison: 10/24/2016 Findings: Lung bases are clear. Visualized heart and pericardium normal. Fatty infiltration to the liver noted without focal hepatic lesion. Spleen, pancreas, gallbladder, bilateral adrenal glands and kidneys are normal. The enteric system including stomach, small and large bowel is without obstruction or acute inflammatory process. Normal terminal ileum and appendix identified in the right lower quadrant. Sigmoid diverticulosis noted without acute diverticulitis. Pelvis demonstrates normal bladder and evidence of prior hysterectomy. No ascites. No free air. No adenopathy. Atherosclerotic changes of the aorta and vasculature noted without aneurysm. Musculoskeletal structures demonstrate degenerative changes without focal abnormality. Impression: 1. Hepatic steatosis. 2. Sigmoid diverticulosis without acute diverticulitis. 3. No further acute abdominopelvic pathology appreciated. Electronically Signed by Jay Paredes MD 03/16/2019 01:35 P
[2019-03-16 14:00] VITALS: BP 114/58
[2019-03-16] MEDS ORDERED: SUCRALFATE SUSP 1GM/10ML UD PO ONE (14:30)
[2019-03-16] MEDS ORDERED: ACETAMINOPHEN 325 MG TAB PO ONE (14:30)
[2019-03-16] MEDS ORDERED: SUCR1SS PO (14:45)
[2019-03-16] MEDS ORDERED: OMEP40CA97 PO (14:45)
[2019-03-18 13:44] LABS: HEPATITIS A ANTIBODY IGM NEGATIVE (NEGATIVE); HEPATITIS B CORE ANTIBODY IGM NEGATIVE (NEGATIVE); HEPATITIS B SURFACE ANTIGEN NEGATIVE (NEGATIVE); HEPATITIS C VIRUS ABY INDEX 0.1 INDEX (<0.8)
== END 2019-03-16 15:17 | disposition home or self-care (01) ==
LOC: M ED 10:49
DX: R10.11 Right upper quadrant pain (principal); K21.9 Gastro-esophageal reflux disease without esophagitis; I10 Essential (primary) hypertension; Z85.118 Personal history of other malignant neoplasm of bronchus and lung; Z90.79 Acquired absence of other genital organ(s); Z87.891 Personal history of nicotine dependence; Z88.0 Allergy status to penicillin; Z88.1 Allergy status to other antibiotic agents; Z88.8 Allergy status to other drugs, medicaments and biological substances; Z79.51 Long term (current) use of inhaled steroids; Z79.899 Other long term (current) drug therapy
CPT/HCPCS: 36415; 74177; 80053; 81001; 82150; 83690; 85025; 86705; 86709; 86803; 87340; 99284; Q9967

== ENCOUNTER 2019-04-11 21:15 | Inpatient (IN) | payer OTHER ==
[~2019-04-11] VITALS: Ht 162.6 cm; Wt 95.5 kg
[~2019-04-11 21:15] MED LIST changes: +SUCR1SS PO
[2019-04-11 22:28] LABS: BASO % 0.3 % (0.0-1.0); EOS # 0.2 10^3/uL (0.0-0.5); EOS % 1.5 % (0.0-3.0); HEMATOCRIT 40.5 % (36.0-47.0); HEMOGLOBIN 12.9 g/dl (12.0-15.5); LYMPH # 2.6 10^3/uL (1.5-5.0); LYMPH % 20.2 % (24.0-44.0); MEAN CORPUSCULAR HEMOGLOBIN 27.6 pg (27.0-33.0); MEAN CORPUSCULAR HGB CONC 31.9 g/dl (32.0-36.5); MEAN CORPUSCULAR VOLUME 86.7 fl (80.0-96.0); MONO # 0.9 10^3/uL (0.0-0.8); MONO % 6.9 % (0.0-5.0); NEUTROPHILS # 9.1 10^3/uL (1.5-8.5); NEUTROPHILS % 70.7 % (36.0-66.0); PLATELET COUNT, AUTOMATED 364 10^3/uL (150-450); RED BLOOD COUNT 4.67 10^6/uL (4.00-5.40); WHITE BLOOD COUNT 12.8 10^3/uL (4.0-10.0)
[2019-04-11 22:53] LABS: ERYTHROCYTE SEDIMENTATION RATE 25 mm/hr (0-30)
[2019-04-11] MEDS ORDERED: MORPHINE 4 MG/ML 1ML VIAL/SYRINGE (J2270) IV ONE (23:00)
[2019-04-11] MEDS ORDERED: ONDANSETRON 4MG/2ML VIAL (J2405) IV ONE (23:00)
[2019-04-11] MEDS ORDERED: ISOVUE-370 76% 100ML VIAL (Q9967) As Ordered ONE (23:05)
[2019-04-11] MEDS ORDERED: CLINDAMYCIN 600 MG in IV 1 EA IV ONE (23:45)
[2019-04-11] MEDS ORDERED: VANCOMYCIN HCL 1,000 MG, VIAL MATE ADAPTER 1 EACH in D5W 250 ML IV ONE (23:45)
[2019-04-12] MEDS ORDERED: OMEP-221 PO (00:16)
[2019-04-12] MEDS ORDERED: CALC0.009 TOP (00:16)
[2019-04-12] MEDS ORDERED: CLOB0.057 TOP (00:16)
[2019-04-12] MEDS ORDERED: SUCR1SS PO (00:18)
--- NOTE | 2019-04-12 00:38 | REPVR ---
PROCEDURE INFORMATION: Exam: US Duplex Right Lower Extremity Veins, Limited Exam date and time: 04/11/2019 12:17 AM Age: 63 years old Clinical history: Pain; Leg, upper; Right; Additional info: R/O dvt TECHNIQUE: Imaging protocol: Real-time Duplex ultrasound of the Right Lower Extremity with 2-D godinez scale, color Doppler flow and spectral waveform analysis with image documentation. Limited exam was focused on the right lower extremity veins. COMPARISON: No relevant prior studies available. FINDINGS: Right deep veins: Unremarkable. The common femoral, femoral and popliteal veins are patent without thrombus. Normal Doppler waveforms. Normal compressibility and/or augmentation response. Right superficial veins: Unremarkable. Saphenofemoral junction is patent without thrombus. Soft tissues: Unremarkable. IMPRESSION: No sonographic evidence of deep vein thrombosis. Electronically signed by: Gucci Dhaliwal On 04/12/2019 00:38:16 AM
[2019-04-12] MEDS ORDERED: CALCIPOTRIENE CREAM 0.005% 60GM TOP PRN (02:15)
[2019-04-12] MEDS ORDERED: VANCOMYCIN HCL 1,000 MG, VIAL MATE ADAPTER 1 EACH in D5W 250 ML IV ONE (02:30)
[2019-04-12 03:00] VITALS: BP 142/70
[2019-04-12] MEDS ORDERED: ONDANSETRON 4MG/2ML VIAL (J2405) IV PRN (04:15)
--- NOTE | 2019-04-12 04:33 | HPEPDOC ---
General Date of Admission Apr 12, 2019 at 01:23 Date of Service: Apr 12, 2019 Primary Care Physician: LUNA CAAL NP Other Providers Thoracic surgeon: Dr. Cardoso Agricultural Services Director: Dr. Acharya Organ Pipe Maker Metal: In [place] DIRECTOR DANCE: [facility] Attending Physician: MATTY PEDROZA DO Chief Complaint The patient is a 63-year-old female admitted with a reason for visit of Right Anterior Knee Pain. History of Present Illness 63-year-old female with notable hx of right knee replacement in 2016 presents for acute right knee pain that began suddenly after Thanksgiving dinner and one glass of wine. Denies any trauma, inciting factors, fevers, chills, prolonged immobilization, skin rashes, recent illness, or any other joint difficulty. She reports she has had this knee drained multiple times in the past prior to her knee replacement, however no issues since the replacement. Her pain is around the patella anteriorly, no posterior pain. She is able to ambulate independently, however ambulation worsens the pain. In the ER, she was noted to have a white count ~13, normal ESR 25, mildly elevated CRP of 1.32. She will be admitted for concern of possible septic joint. ER spoke with orthopedics who will see the patient in the morning. Home Medications Scheduled Cholecalciferol (Vitamin D3) (Vitamin D3) 50,000 Unit Capsule, 50,000 UNITS PO Q2WK, (Reported) WRITTEN FOR WEEKLY BUT PHYSICIAN RECENTLY CHANGED TO Q2WK, TAKES ON MONDAY Lisinopril (Lisinopril) 10 Mg Tab, 10 MG PO DAILY, (Reported) Omeprazole (Omeprazole) 40 Mg Capsule.dr, 40 MG PO BID, (Reported) Sucralfate (Carafate) 1 Gm/10 Ml Oral.susp, 10 ML PO ACHS, (Reported) Scheduled PRN Calcipotriene (Calcipotriene) 0.005% Cream..g., 1 APLCT TOP BID PRN for PSORIASIS, (Reported) APPLIED TO SCALP AREA Clobetasol Propionate (Clobetasol Propionate) 0.05% 50ML Solution, 1 APLCT TOP QPM PRN for RASH, (Reported) APPLIES TO SCALP NEEDED Triamcinolone Acetonide (Nasacort) 10.8 Ml [place], 2 SPRAYS NA DAILY PRN for CONGESTION, (Reported) Allergies Coded Allergies: Penicillins (Verified Allergy, Intermediate, HIVES, 04/11/19) amoxicillin (Verified Allergy, Unknown, 04/11/19) clavulanic acid (Verified Allergy, Unknown, 04/11/19) meloxicam (Verified Adverse Reaction, Intermediate, HTN, 04/11/19) Past Medical History Medical History JAMAR on CPAP History of left lung cancerous nodule, S/P left lower lobectomy Hypertension Psoriasis Obesity BMI 36 Degenerative Joint Disease Surgical History Hysterectomy Carpal tunnel Left lower lung lobectomy for cancer's nodule 2017 Right knee replacement 2016 Family History Father passed of presumed [place] at age 49 Mother alive with breast cancer Social History Lives at home with . 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 Smoked 1 pack per day for 30 years, quit 15 years ago Alcohol rarely, denies any illicit substances A-FIB/CHADSVASC A-FIB History Current/History of A-Fib/PAF?: No Current PO Anticoag Therapy: No Review of Systems Other systems Constitutional: Denies fever, chills, night sweats, weight loss HEENT: Denies headache, dysphagia Skin: Denies any rashes or lesions Pulmonary: Denies dyspnea, cough, wheezing Cardiac: Denies chest pain, palpitations, orthopnea, PND, edema, lightheadedness GI: Denies nausea, vomiting, abdominal pain, diarrhea, constipation, melena, hematochezia MSK: Admits right knee pain and swelling without any warmth or oozing drainage. Denies any other joint issues Neurologic: Denies new numbness/tingling Physical Examination Other physical findings General exam: A&O 3, NAD, resting comfortably HEENT: NCAT, EOMI Cardiac: RRR, normal S1 & S2, no murmurs Respiratory: CTAB, good air exchange, no w/r/r Abdomen: soft, NT, ND, normoactive bowel sounds Extremity: 2+ radial and dorsalis pedis pulses, no edema or calf tenderness Skin: [place], warm, dry, psoriatic rash in mid-low back Msk: strength 5/5 x4, normal tone. Right knee stiff, limited to ~30degrees flexion, tender more so at inferior patella and ~7 o'clock with mildly swollen knee, no palpable effusion. Other joints nml ROM & nontender Neuro: normal speech, no focal deficits Psych: Normal mood and affect Vital Signs Vital Signs Date Time Temp Pulse Resp B/P (MAP) Pulse Ox O2 Delivery O2 Flow Rate FiO2 04/12/19 00:58 18 04/11/19 23:29 97.1 85 123/60 (81) 97 Room Air Laboratory Data Labs 24H Laboratory Tests 2 04/11/19 22:04: Immature Granulocyte % (Auto) 0.4, Neutrophils (%) (Auto) 70.7H, Lymphocytes (%) (Auto) 20.2L, Monocytes (%) (Auto) 6.9H, Eosinophils (%) (Auto) 1.5, Basophils (%) (Auto) 0.3, Neutrophils # (Auto) 9.1H, Lymphocytes # (Auto) 2.6, Monocytes # (Auto) 0.9H, Eosinophils # (Auto) 0.2, Basophils # (Auto) 0.0, Nucleated Red Blood Cells % (auto) 0.0, Erythrocyte Sedimentation Rate 25, C-Reactive Protein, Quantitative 1.32H 04/11/19 22:27: POC Glucose (Misc Panel) 131H, POC Sodium (Misc Panel) 138, POC Potassium (Misc Panel) 3.9, POC Chloride (Misc Panel) 103, POC Total CO2 (Misc Panel) 23.0, POC Blood Urea Nitrogen (Misc Panel 14, POC Ionized Calcium (Misc Panel) 4.7, POC Creatinine (Misc Panel) 0.8, POC Hematocrit (Misc Panel) 39.0 04/12/19 01:51: Lactic Acid Level 1.7 CBC/BMP Laboratory Tests 04/11/19 22:04 Microbiology Microbiology 04/12/19 Blood Culture, Received Pending 04/11/19 Blood Culture, Received Pending Assessment/Plan 63-year-old female with history of right knee replacement presenting for sudden right knee pain and swelling that began after Thanksgiving dinner without any other inciting factors. Denies all other ROS. Right knee pain OA vs septic joint vs anserine bursitis vs gout vs pseudogout afebrile, nml ESR, but leukocytosis & elevated CRP will continue Vanc & Clinda for concern of septic joint ER spoke with Dr. Loera. Ortho will assess in am, appreciate input: pain control for now official knee xray read pending blood cultures pending JAMAR on CPAP follows Dr. 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 Avoid AC given possible procedure DISPO: admit to hospital, to be seen by Ortho in am. Plan / VTE VTE Prophylaxis Ordered?: Yes GME ATTESTATION GME ATTESTATION My faculty preceptor for this patient encounter was physically present during the encounter and was fully available. All aspects of the patient interview, examination, medical decision making process, and medical care plan development were reviewed and approved by the faculty preceptor. The faculty preceptor is aware and concurs with the plan as stated in the body of this note and will attest to such by his/her cosignature. ATTENDING NOTE I, Matty Pedroza, have independently examined this patient and performed my own physical exam, as well as reviewed the documentation and edited where necessary. I have discussed in detail with the resident / student the findings and plan of treatment as documented by the resident / student and edited their note. I agree with their findings and treatment plan and have edited their documentation. I will continue to follow the patient during this hospital stay. LEEANN GRECO DO Apr 12, 2019 04:33 MATTY PEDROZA DO Apr 12, 2019 05:42
--- NOTE | 2019-04-12 05:41 | PHACANCOPD ---
PHARMACY VANCOMYCIN DOSING Pt Demographics Demographics Patient Age:63 , Weight:95.450 , Gender: female Adjusted Body Weight Date: 04/12/19, Adjusted Body Weight: [71] Kg Vancomycin Vancomycin indication: CELLUILITIS/POSSIBLE SEPTIC RT KNEE Vancomycin Target Ranges: 15-20 mcg/ml Vancomycin Load Y/N: Yes Load Dose Date Time Vancomycin Load Dose: 2 GM Date:04/12 Time: 0100,0400 Vancomycin Dose Date: 04/12/19. Current Vancomycin Dose: [1 GM Q12H] Intermittent Dosing?: No Labs Micro Microbiology 04/12/19 Blood Culture, Received Pending 04/11/19 Blood Culture, Received Pending Creatinine Clearance Date:04/12/19. Creatinine Clearance: [82.8]CALCULATED. Assessment and Plan Maintaining Current Dose?: Yes Reason for dose change: No Dose Change Pharmacist Note Pharmacist Note Date: 04/12/19. Pharmacist note:[id number] Admitted wpain/swelling in rt knee-possibl e cellulitis/septic joint. 5'4",95.45 kg(abw=71kg),SCR=0.8,calculated CRCL=92.8.allergies:penicillin,amoxicillin.Prescriber ordered Clindamycin 600mg IV [id number] and Pharmacy dosed Vancomycin (goal trough= 15-20). Vancomycin 1 gm@01&04 as 2 gram "load", then will begin 1 gram iv [id number] to begin 04/12@1200.First trough is scheduled for 04/13@1100-will continue to follow [facility] Apr 12, 2019 05:41
[2019-04-12 06:00] VITALS: BP 144/78
--- NOTE | 2019-04-12 06:27 | REP ---
Clinical: Right knee pain. Technique: AP, lateral, bilateral oblique and sunrise views of the right knee. Findings: Evidence of prior right knee replacement. No acute fracture dislocation. No significant degenerative changes are appreciated. Lateral view suggests swelling and effusion. Impression: Swelling and possible effusion. Electronically Signed by Jay Paredes MD 04/12/2019 06:18 A
[2019-04-12 08:49] VITALS: BP 144/78
[2019-04-12] MEDS: SUCRALFATE SUSP 1GM/10ML UD PO SCH ×2 (08:49→12:00)
[2019-04-12] MEDS ORDERED: CLINDAMYCIN 600 MG in IV 1 EA IV SCH (09:00)
[2019-04-12] MEDS ORDERED: LISINOPRIL 10 MG TAB PO SCH (09:00)
[2019-04-12] MEDS ORDERED: HEPARIN SOD (PORCINE) 5000 UNITS/ML VIAL SC SCH (09:00)
[2019-04-12] MEDS ORDERED: OMEPRAZOLE 20 MG CAP PO SCH (09:00)
--- NOTE | 2019-04-12 10:19 | CR ---
DATE: 04/12/2019 CHIEF COMPLAINT: Painful right total knee arthroplasty. HISTORY OF PRESENT ILLNESS: This is a pleasant 63-year-old female, who is here with her today, was seen in the emergency department by the physician assistant auditor (ERNESTO) and the hospitalist. She was admitted last night for a question of infected right total knee arthroplasty. This was performed by Dr. Swan. She never had any problems with the knee after the knee replacement. There is no redness or swelling to the knee. She did go over to one of her relative's place and was walking around yesterday. Later on in the night, she developed some pain in the knee. There is no fever, chills, rashes, recent illness, or any other joint problems or joint replacements. This morning, she feels a lot better. She is able to ambulate independently up to the washroom. Pain has settled down. PAST MEDICAL HISTORY: Obstructive sleep apnea (JAMAR) on continuous positive airway pressure (CPAP). Left lung cancerous nodule. Left lower lobectomy. Hypertension. Psoriasis. Obesity. Degenerative joint disease. MEDICATIONS: - vitamin D - lisinopril - omeprazole - sucralfate ALLERGIES: PENICILLIN, AMOXICILLIN, CLAVULANIC ACID, MELOXICAM. SURGICAL HISTORY: Hysterectomy, Carpal tunnel. Left lower lung lobectomy for cancerous nodule in 2017. Right knee arthroplasty, [address] Swan. SOCIAL HISTORY: Lives at home with . Alcohol rarely. Denies illicit substances. REVIEW OF SYSTEMS: Is negative for fever, chills, night sweats, weight loss, headache, dysphasia, rashes, dyspnea, cough, wheezing, abdominal pain, vomiting, numbness, or tingling. PHYSICAL EXAM: Vital signs: Reveal a temperature to be afebrile throughout her stay 97.1 to 97.7. Blood pressure stable. Pulse oximetry stable. Pulse rate highest at 105, otherwise 85-91. She is alert and times three. Mood and affect pleasant, positive. Station is normal. She appears comfortable. Inspection of her bilateral lower extremities reveals anterior midline incision of the right knee that is well-healed, free of complication. There is no obvious redness, swelling, or drainage. She has very small effusion. Her knee range of motion actively and passively, 0-120 degrees. She is able to do a straight-leg raise. Pain to the medial and lateral joint lines. No pain in posterior aspect of the knee or proximally or distally to the knee replacement. Neurovascular intact both her lower extremities with normal sensation of the feet. Feet are warm and well-perfused. Good pedal pulses. She is able wiggle her toes, dorsiflex, plantarflex the foot. No medial or lateral instability of the knee replacement. Radiographs were taken of the right knee, five views were obtained, AP, lateral two obliques, and sunrise view. Knee has a constrained total knee arthroplasty. This appears to be a hinged knee replacement. Bones are well fixed, free of any kind of complication or loosening. The patella appears resurfaced. Laboratory examination revealed WBC 12.8. ESR 25. CRP 1.320 to 1.53 this morning. ASSESSMENT/PLAN: A 63-year-old female appears to have right total knee arthroplasty that is painful. I think that she likely had increased activity and her pain is settling down now. Much lower in the differential being a septic knee. I think given that the clinical appearance, my overall impression of this is I have a very low suspicion that it would be infected. I would watch and wait to see how this goes for now without doing an aspiration. I would discontinue the antibiotics, followup in the next few days. I talked about warning signs, such as fever, chills, constitutional symptoms, increase in redness, swelling, drainage of the knee, or increased levels of pain. If this were to recur, then the next step would be to perform a knee aspiration to rule out indolent infection. I offered physical therapy to make sure that she is mobilizing safely; however, she feels like she is already safe to do that, would like to be discharged home. We have communicated our overall impression to the hospitalists and appreciate their help with this patient. I would recommend followup with a total joint arthroplasty surgeon if this fails to resolve. GOPI
[2019-04-12] MEDS ORDERED: VANCOMYCIN HCL 1,000 MG, VIAL MATE ADAPTER 1 EACH in D5W 250 ML IV SCH (12:00)
--- NOTE | 2019-04-12 17:49 | DS.PDOC ---
Discharge Summary General Date of Admission Apr 12, 2019 at 01:23 Date of Discharge April 12, 2019 Specialist/Consultants Involve: FAY CAMERON MD Discharge Summary PROCEDURES PERFORMED DURING STAY: None. ADMITTING DIAGNOSES: Acute Right knee swelling DISCHARGE DIAGNOSES: Acute right knee swelling resolved--ruled out for septic joint, osteoarthritis, essential hypertension, psoriasis, history of pulmonary carcinoid tumor, obstructive sleep apnea, COMPLICATIONS/CHIEF COMPLAINT: Right Anterior Knee Pain. HISTORY OF PRESENT ILLNESS/HOSPITAL COURSE: This is a 63-year-old female who has a history of right total knee arthroplasty back in 2016. She's had no difficulty with it until . She developed acute onset of swelling and peripatellar pain. She did not have fever or erythema; she came to the ER for evaluation. X-ray did show presence of effusion. She did not have remarkable leukocytosis or fever, and sedimentation rate was normal. Patient was started on empiric vancomycin and clindamycin out of concern for septic joint. Acute gout was also in the differential diagnosis. The patient's swelling and pain resolved spontaneously. She was evaluated by the orthopedic service and episode was attributed to overuse; she did not require joint aspiration or other intervention. It was recommended that antibiotics be stopped. Plans are for her to monitor her knee joint at home and follow up in a week or so with orthopedic service. At the time of discharge, the patient was fully able to bear weight to her right lower extremity without difficulty.. DISCHARGE MEDICATIONS: Please see below. ALLERGIES: Please see below. PHYSICAL EXAMINATION ON DISCHARGE: VITAL SIGNS: Please see below. GENERAL: Patient is in no discomfort, and in good spirits HEENT: Neck is supple with no adenopathy or thyromegaly, there is no scleral injection or icterus, oral mucosa is moist CARDIOVASCULAR EXAMINATION: Regular rate and rhythm, no murmur RESPIRATORY EXAMINATION: Clear to auscultation ABDOMINAL EXAMINATION: Significant central obesity, otherwise soft, nontender, nondistended EXTREMITIES: Little or no pedal edema, pedal pulses palpable, swelling to the region of right knee is resolved with no erythema, there is minimal tenderness to palpation NEUROLOGICAL EXAMINATION: No focal neuromotor or sensory deficit LABORATORY DATA: Please see below. IMAGING: RIGHT KNEE XRAY Findings: Evidence of prior right knee replacement. No acute fracture dislocation. No significant degenerative changes are appreciated. Lateral view suggests swelling and effusion. Impression: Swelling and possible effusion. Electronically Signed by Jay Paredes MD 04/12/2019 06:18 A PROGNOSIS: ACTIVITY: As tolerated. DIET: 2 g sodium DISCHARGE PLAN: The patient is otherwise stable for discharge to home. She does not require antibiotics at this time per orthopedic service. She also does not require any pain medication. She is to follow-up with orthopedic service in 1-2 weeks; her usual orthopedic surgeon is retired and she states she is willing to follow-up with Dr. Fay Cameron. DISPOSITION: 01 Home, Self-Care. DISCHARGE INSTRUCTIONS: 1. . ITEMS TO FOLLOWUP ON ON OUTPATIENT: 1. . DISCHARGE CONDITION: Stable. TIME SPENT ON DISCHARGE: 35 minutes. Vital Signs/I&Os Vital Signs Date Time Temp Pulse Resp B/P (MAP) Pulse Ox O2 Delivery O2 Flow Rate FiO2 04/12/19 08:49 144/78 04/12/19 06:00 97.7 105 19 100 Room Air I&O- Last 24 Hours up to 6 AM 04/12/19 08:00 Intake Total 470 ml Balance 470 ml Laboratory Data Labs 24H Laboratory Tests 2 04/11/19 22:04: Immature Granulocyte % (Auto) 0.4, Neutrophils (%) (Auto) 70.7H, Lymphocytes (%) (Auto) 20.2L, Monocytes (%) (Auto) 6.9H, Eosinophils (%) (Auto) 1.5, Basophils (%) (Auto) 0.3, Neutrophils # (Auto) 9.1H, Lymphocytes # (Auto) 2.6, Monocytes # (Auto) 0.9H, Eosinophils # (Auto) 0.2, Basophils # (Auto) 0.0, Nucleated Red Blood Cells % (auto) 0.0, Erythrocyte Sedimentation Rate 25, C-Reactive Protein, Quantitative 1.32H 04/11/19 22:27: POC Glucose (Misc Panel) 131H, POC Sodium (Misc Panel) 138, POC Potassium (Misc Panel) 3.9, POC Chloride (Misc Panel) 103, POC Total CO2 (Misc Panel) 23.0, POC Blood Urea Nitrogen (Misc Panel 14, POC Ionized Calcium (Misc Panel) 4.7, POC Creatinine (Misc Panel) 0.8, POC Hematocrit (Misc Panel) 39.0 04/12/19 01:51: Lactic Acid Level 1.7 04/12/19 05:37: C-Reactive Protein, Quantitative 1.53H CBC/BMP Laboratory Tests 04/11/19 22:04 Microbiology Microbiology 04/12/19 Blood Culture, Received Pending 04/11/19 Blood Culture, Received Pending Discharge Medications Scheduled Cholecalciferol (Vitamin D3) (Vitamin D3) 50,000 Unit Capsule, 50,000 UNITS PO Q2WK, (Reported) WRITTEN FOR WEEKLY BUT PHYSICIAN RECENTLY CHANGED TO Q2WK, TAKES ON MONDAY Lisinopril (Lisinopril) 10 Mg Tab, 10 MG PO DAILY, (Reported) Omeprazole (Omeprazole) 40 Mg Capsule.dr, 40 MG PO BID, (Reported) Sucralfate (Carafate) 1 Gm/10 Ml Oral.susp, 10 ML PO ACHS, (Reported) Scheduled PRN Calcipotriene (Calcipotriene) 0.005% Cream..g., 1 APLCT TOP BID PRN for PSORIASIS, (Reported) APPLIED TO SCALP AREA Clobetasol Propionate (Clobetasol Propionate) 0.05% 50ML Solution, 1 APLCT TOP QPM PRN for RASH, (Reported) APPLIES TO SCALP NEEDED Triamcinolone Acetonide (Nasacort) 10.8 Ml [place], 2 SPRAYS NA DAILY PRN for CONGESTION, (Reported) Allergies Coded Allergies: Penicillins (Verified Allergy, Intermediate, HIVES, 04/11/19) amoxicillin (Verified Allergy, Unknown, 04/11/19) clavulanic acid (Verified Allergy, Unknown, 04/11/19) meloxicam (Verified Adverse Reaction, Intermediate, HTN, 04/11/19) AURORA CAAL MD Apr 12, 2019 17:49
== END 2019-04-12 12:40 | disposition home or self-care (01) | DRG 566 ==
LOC: M ED 21:15 → M ED INP 04-12 01:23 → M MS5PR 04-12 02:45
PROVIDERS: ADMIT Internal Medicine; ATTEND Internal Medicine
DX: M25.461 Effusion, right knee (principal); I10 Essential (primary) hypertension; L40.8 Other psoriasis; G47.33 Obstructive sleep apnea (adult) (pediatric); Z96.651 Presence of right artificial knee joint; Z79.899 Other long term (current) drug therapy; Z88.0 Allergy status to penicillin; Z88.8 Allergy status to other drugs, medicaments and biological substances; E66.9 Obesity, unspecified; Z68.36 Body mass index [BMI] 36.0-36.9, adult; Z85.118 Personal history of other malignant neoplasm of bronchus and lung; M19.90 Unspecified osteoarthritis, unspecified site; Z87.891 Personal history of nicotine dependence; K21.9 Gastro-esophageal reflux disease without esophagitis

== ENCOUNTER → 2019-07-15 | Outpatient (CLI) | payer OTHER ==
[~2019-07-15] MED LIST changes: +BISO5TAB14 PO; -BISO5TAB9 PO; +CLOB0.057 TOP; +OMEP-221 PO
[2019-07-15 18:17] LABS: BLOOD UREA NITROGEN 12 MG/DL (7-18); CALCIUM LEVEL 9.5 MG/DL (8.8-10.2); CARBON DIOXIDE LEVEL 28 MEQ/L (21-32); CHLORIDE LEVEL 103 MEQ/L (98-107); CREATININE FOR GFR 0.71 MG/DL (0.55-1.30); GLOMERULAR FILTRATION RATE > 60.0 (>45); GLUCOSE, FASTING 128 MG/DL (70-100); POTASSIUM SERUM 3.9 MEQ/L (3.5-5.1); SODIUM LEVEL 137 MEQ/L (136-145)
[2019-07-15 18:30] LABS: TOTAL 25(OH) VITAMIN D 33.9 NG/ML (30.0-100.0)
[2019-07-15 18:41] LABS: CREATININE, URINE 83.3 MG/DL; MALB URINE SIEMENS 7.7 MG/L; MAU/CREAT RATIO 9.2 MCG/MG (0.0-30.0)
== END ==
LOC: M PLALAB 13:57
PROVIDERS: ATTEND Nurse Practitioner Family
DX: I10 Essential (primary) hypertension (principal); R73.01 Impaired fasting glucose; E55.9 Vitamin D deficiency, unspecified

== ENCOUNTER → 2019-10-11 | Outpatient (CLI) | payer OTHER ==
--- NOTE | 2019-10-11 15:04 | REP ---
REASON: Followup. All priors reviewed, the latest 09/11/2018. Once again, the lack of intravenous contrast decreases the sensitivity of the exam. The mediastinum and pulmonary nica are unchanged. No mass or adenopathy has developed. There are no pleural or pericardial effusions. There is no significant change in the appearance of the imaged upper abdomen or imaged osseous structures. Evaluation of the lung feliciano shows no new abnormal nodules, masses, or opacities. IMPRESSION: Stable CT examination of the chest. Electronically Signed by Adair Viveros DO 10/11/2019 03:10 P
== END ==
LOC: M RAD 11:56
PROVIDERS: ATTEND Internal Medicine Pulmonary Disease
DX: R91.8 Other nonspecific abnormal finding of lung field (principal)

== ENCOUNTER → 2019-12-20 | Outpatient (REF) | payer OTHER ==
[2020-01-18 03:49] LABS: BASO % 0.2 % (0.0-1.0); EOS # 0.1 10^3/uL (0.0-0.5); EOS % 1.1 % (0.0-3.0); HEMATOCRIT 44.1 % (36.0-47.0); HEMOGLOBIN 13.9 g/dl (12.0-15.5); LYMPH % 24.9 % (24.0-44.0); MEAN CORPUSCULAR HEMOGLOBIN 27.5 pg (27.0-33.0); MEAN CORPUSCULAR HGB CONC 31.5 g/dl (32.0-36.5); MEAN CORPUSCULAR VOLUME 87.2 fl (80.0-96.0); MONO # 0.5 10^3/uL (0.0-0.8); MONO % 6.4 % (0.0-5.0); NEUTROPHILS # 5.4 10^3/uL (1.5-8.5); NEUTROPHILS % 67.2 % (36.0-66.0); PLATELET COUNT, AUTOMATED 332 10^3/uL (150-450); RED BLOOD COUNT 5.06 10^6/uL (4.00-5.40); WHITE BLOOD COUNT 8.1 10^3/uL (4.0-10.0)
[2020-02-03 10:56] LABS: HEMOGLOBIN A1c 5.7 %
[2020-02-03 10:57] LABS: ALBUMIN 4.3 GM/DL (3.2-5.2); ALT/SGPT 48 U/L (12-78); BILIRUBIN,TOTAL 0.4 MG/DL (0.2-1.0); BLOOD UREA NITROGEN 14 MG/DL (7-18); CALCIUM LEVEL 9.6 MG/DL (8.8-10.2); CARBON DIOXIDE LEVEL 28 MEQ/L (21-32); CHLORIDE LEVEL 103 MEQ/L (98-107); CHOLESTEROL LEVEL 196 MG/DL (<200); CREATININE FOR GFR 0.76 MG/DL (0.55-1.30); FREE T4 1.19 NG/DL (0.76-1.46); GLOMERULAR FILTRATION RATE > 60.0 (>45); GLUCOSE, FASTING 89 MG/DL (70-100); HDL CHOLESTEROL 41 MG/DL (>40); LDL CHOLESTEROL 131 MG/DL (<100); NON-HDL-C 155 MG/DL; SODIUM LEVEL 137 MEQ/L (136-145); TRIGLYCERIDES LEVEL 119 MG/DL (<150)
== END ==
LOC: M PLALAB 16:26
PROVIDERS: ATTEND Physician Assistant
DX: E66.01 Morbid (severe) obesity due to excess calories (principal); G47.33 Obstructive sleep apnea (adult) (pediatric)

== ENCOUNTER → 2019-12-23 | Outpatient (REF) | payer OTHER ==
[2020-02-05 18:13] LABS: ALBUMIN 4.3 GM/DL (3.2-5.2); ALT/SGPT 48 U/L (12-78); BILIRUBIN,TOTAL 0.4 MG/DL (0.2-1.0); BLOOD UREA NITROGEN 14 MG/DL (7-18); CALCIUM LEVEL 9.6 MG/DL (8.8-10.2); CARBON DIOXIDE LEVEL 28 MEQ/L (21-32); CHLORIDE LEVEL 103 MEQ/L (98-107); CHOLESTEROL LEVEL 196 MG/DL (<200); CREATININE FOR GFR 0.76 MG/DL (0.55-1.30); FREE T4 1.19 NG/DL (0.76-1.46); GLOMERULAR FILTRATION RATE > 60.0 (>45); GLUCOSE, FASTING 89 MG/DL (70-100); HDL CHOLESTEROL 41 MG/DL (>40); LDL CHOLESTEROL 131 MG/DL (<100); NON-HDL-C 155 MG/DL; SODIUM LEVEL 137 MEQ/L (136-145); TRIGLYCERIDES LEVEL 119 MG/DL (<150)
== END ==
LOC: M PLALAB 15:04
PROVIDERS: ATTEND Physician Assistant
DX: E66.01 Morbid (severe) obesity due to excess calories (principal)

== ENCOUNTER → 2020-02-03 | Outpatient (CLI) | payer OTHER ==
--- NOTE | 2020-02-03 15:23 | REPMRS ---
Patient History The patient states she had a clinical breast exam in 2019. Family history of breast cancer at age 78 in mother. No Hormone Replacement Therapy 3D TOMOSYNTHESIS WAS PERFORMED. [facility] lifetime risk for breast cancer is 11.3%. KELLY Mercer. Digital Woman Screen Mammo: February 03, 2020 - Exam #: [id number] Bilateral CC and MLO view(s) were taken. Technologist: Neeru Saini, Technologist Prior study comparison: January 24, 2019, bilateral digital woman screen mammo performed at [facility]. January 18, 2018, bilateral digital woman screen mammo performed at [facility]. FINDINGS: There are scattered fibroglandular densities. There has been no change in the appearance of the mammogram from the prior studies. There is a mild amount of residual fibroglandular tissue which is fairly symmetric. There is no interval development of dominant mass, architectural distortion, or clustered microcalcification suggestive of malignancy. Assessment: BI-RADS/ACR category 1 mammogram. Negative Mammogram. Recommendation Routine screening mammogram in 1 year (for women over age 40). This mammogram was interpreted with the aid of an FDA-approved computer-aided dectection system. Electronically Signed By: Titi Horn MD 02/03/20 [id number]
== END ==
LOC: M WHC 14:17
PROVIDERS: ATTEND Nurse Practitioner Women's Health
DX: Z12.31 Encounter for screening mammogram for malignant neoplasm of breast (principal); Z80.3 Family history of malignant neoplasm of breast

== ENCOUNTER → 2020-06-29 | Outpatient (CLI) | payer OTHER ==
[~2020-06-29] MED LIST changes: -LISI-542 PO; +LISI-898 PO; +LISI10TA22 PO; -LISI10TA4 PO
[2020-06-29 10:30] LABS: BASO % 0.4 % (0.0-1.0); EOS # 0.2 10^3/uL (0.0-0.5); HEMATOCRIT 44.6 % (36.0-47.0); HEMOGLOBIN 13.9 g/dl (12.0-15.5); LYMPH # 2.2 10^3/uL (1.5-5.0); MEAN CORPUSCULAR HEMOGLOBIN 27.2 pg (27.0-33.0); MEAN CORPUSCULAR HGB CONC 31.2 g/dl (32.0-36.5); MEAN CORPUSCULAR VOLUME 87.3 fl (80.0-96.0); MONO # 0.6 10^3/uL (0.0-0.8); MONO % 7.3 % (2.0-8.0); NEUTROPHILS % 62.9 % (36.0-66.0); PLATELET COUNT, AUTOMATED 336 10^3/uL (150-450); RED BLOOD COUNT 5.11 10^6/uL (4.00-5.40)
[2020-06-29 10:51] LABS: ALBUMIN 3.8 GM/DL (3.2-5.2); ALT/SGPT 22 U/L (12-78); BILIRUBIN,TOTAL 0.4 MG/DL (0.2-1.0); BLOOD UREA NITROGEN 12 MG/DL (7-18); CALCIUM LEVEL 9.7 MG/DL (8.8-10.2); CARBON DIOXIDE LEVEL 29 MEQ/L (21-32); CHLORIDE LEVEL 102 MEQ/L (98-107); CREATININE FOR GFR 0.76 MG/DL (0.55-1.30); FREE T4 1.11 NG/DL (0.76-1.46); GLOMERULAR FILTRATION RATE > 60.0 (>45); GLUCOSE, FASTING 89 MG/DL (70-100); POTASSIUM SERUM 4.5 MEQ/L (3.5-5.1); SODIUM LEVEL 136 MEQ/L (136-145); TOTAL PROTEIN 7.5 GM/DL (6.4-8.2)
== END ==
LOC: M PLALAB 08:37
PROVIDERS: ATTEND Family Medicine
DX: E66.8 Other obesity (principal); I10 Essential (primary) hypertension

== ENCOUNTER → 2020-10-24 | Outpatient (CLI) | payer OTHER ==
[2020-10-24 10:05] LABS: BASO % 0.4 % (0.0-1.0); EOS # 0.1 10^3/uL (0.0-0.5); EOS % 1.4 % (0.0-3.0); HEMATOCRIT 43.8 % (36.0-47.0); HEMOGLOBIN 14.2 g/dl (12.0-15.5); LYMPH # 2.2 10^3/uL (1.5-5.0); MEAN CORPUSCULAR HEMOGLOBIN 28.4 pg (27.0-33.0); MEAN CORPUSCULAR HGB CONC 32.4 g/dl (32.0-36.5); MEAN CORPUSCULAR VOLUME 87.6 fl (80.0-96.0); MONO # 0.6 10^3/uL (0.0-0.8); MONO % 7.7 % (2.0-8.0); NEUTROPHILS # 4.8 10^3/uL (1.5-8.5); PLATELET COUNT, AUTOMATED 344 10^3/uL (150-450); WHITE BLOOD COUNT 7.8 10^3/uL (4.0-10.0)
[2020-10-24 10:38] LABS: ALT/SGPT 22 U/L (12-78); BILIRUBIN,TOTAL 0.3 MG/DL (0.2-1.0); BLOOD UREA NITROGEN 12 MG/DL (7-18); CALCIUM LEVEL 9.3 MG/DL (8.8-10.2); CARBON DIOXIDE LEVEL 32 MEQ/L (21-32); CHLORIDE LEVEL 105 MEQ/L (98-107); CHOLESTEROL LEVEL 185 MG/DL (<200); CHOLESTEROL RISK RATIO 4.204 (<5); CREATININE FOR GFR 0.62 MG/DL (0.55-1.30); FREE T4 1.09 NG/DL (0.76-1.46); GLOMERULAR FILTRATION RATE > 60.0 (>45); GLUCOSE, FASTING 95 MG/DL (70-100); HDL CHOLESTEROL 44 MG/DL (>40); LDL CHOLESTEROL 125 MG/DL (<100); NON-HDL-C 141 MG/DL; POTASSIUM SERUM 4.8 MEQ/L (3.5-5.1); SODIUM LEVEL 138 MEQ/L (136-145); THYROID STIMULATING HORMONE 0.917 uIU/ML (0.358-3.740); TOTAL PROTEIN 7.6 GM/DL (6.4-8.2); TRIGLYCERIDES LEVEL 80 MG/DL (<150)
== END ==
LOC: M LAB 08:50
PROVIDERS: ATTEND Family Medicine
DX: Z13.220 Encounter for screening for lipoid disorders (principal)

== ENCOUNTER → 2020-11-11 | Outpatient (CLI) | payer OTHER ==
[~2020-11-11] MED LIST changes: +OMEP40CA4 PO; -OMEP40CA97 PO
--- NOTE | 2020-11-11 08:50 | REP ---
INDICATION: ABN FINDINGS OF LUNG FIELD COMPARISON: Multiple the latest 10/11/2019 TECHNIQUE: Standard helical technique without intravenous contrast administration FINDINGS: There is no significant change in appearance of the mediastinum or pulmonary nica. There are no pleural or pericardial effusions. There is no significant change in appearance of the imaged upper abdomen or imaged osseous structures. Evaluation of the lung feliciano shows no new abnormal nodules, masses, or opacities. IMPRESSION: Lung rads category [address] examination of the chest. <Electronically signed by Adair Viveros > 11/11/20 [id number]
== END ==
LOC: M RAD 07:13
PROVIDERS: ATTEND Internal Medicine Pulmonary Disease
DX: R91.8 Other nonspecific abnormal finding of lung field (principal)

== ENCOUNTER → 2021-02-08 | Outpatient (CLI) | payer OTHER ==
--- NOTE | 2021-02-08 16:05 | REPMRS ---
Patient History The patient states she has not had a clinical breast exam in over a year. Family history of breast cancer at age 78 in mother. No Hormone Replacement Therapy 25 lb intentional weight loss. Covid vaccines 07/10/20 right arm. 08/07/20 right arm. Patient states no breast complaints today. Patient has signed MRS History Sheet. Digital Woman Screen Mammo: February 08, 2021 - Exam #: [id number] Bilateral CC and MLO view(s) were taken. Technologist: RT Lilly Prior study comparison: February 03, 2020, bilateral digital woman screen mammo performed at [facility]. January 24, 2019, bilateral digital woman screen mammo performed at [facility]. FINDINGS: There are scattered fibroglandular densities. Screening. Digital screening (2D) mammography was performed bilaterally in the CC and MLO projections. Additionally, breast tomosynthesis (3D mammography) was performed bilaterally in the CC and MLO projections. Todays exam was compared to the prior exam/exams. By history, the patient has no complaints of a palpable breast abnormality or other significant breast complaints. The breasts are unchanged in size and shape. There are no ty-soft tissue densities or spiculated masses. There is no internal architectural distortion.Once again, stable benign appearing calcifications are seen. There are no suspicious ty-calcific clusters. Skin thickening or nipple retraction is not present. IMPRESSION: BI-RADS Category 2- Benign Findings. There is no evidence of malignant alteration of the breasts. Followup examination recommended in one year. The Volpara volumetric breast density category is B, there are scattered areas of fibroglandular densities. This mammogram was [facility],an FDA approved computer aided detection system for mammography. The lifetime Tyrer-Cuzick score is 10.9 % Negative x-ray reports should not delay surgical consultation if a dominant or clinically suspicious mass is present. Not all breast cancers can be identified by mammography. Therefore, we recommend that you continue to perform regular breast self-examination and physical examination and then promptly contact your physician of any concerns or changes. Adenosis and dense breasts may obscure an underlying neoplasm. Assessment: BI-RADS/ACR category 2 mammogram. Benign Findings. Recommendation Routine screening mammogram of both breasts in 1 year. Electronically Signed By: Adair Viveros, 02/08/21 [id number]
== END ==
LOC: M WHC 14:43
PROVIDERS: ATTEND Family Medicine
DX: Z12.31 Encounter for screening mammogram for malignant neoplasm of breast (principal); Z80.3 Family history of malignant neoplasm of breast

== ENCOUNTER → 2021-04-09 | Outpatient (CLI) | payer OTHER ==
[2021-04-09 09:58] LABS: BASO % 0.3 % (0.0-1.0); EOS # 0.1 10^3/uL (0.0-0.5); EOS % 1.8 % (0.0-3.0); HEMATOCRIT 43.6 % (36.0-47.0); HEMOGLOBIN 13.9 g/dl (12.0-15.5); LYMPH # 2.2 10^3/uL (1.5-5.0); LYMPH % 31.8 % (24.0-44.0); MEAN CORPUSCULAR HEMOGLOBIN 27.7 pg (27.0-33.0); MEAN CORPUSCULAR HGB CONC 31.9 g/dl (32.0-36.5); MONO # 0.5 10^3/uL (0.0-0.8); NEUTROPHILS # 4.1 10^3/uL (1.5-8.5); NEUTROPHILS % 58.8 % (36.0-66.0); PLATELET COUNT, AUTOMATED 337 10^3/uL (150-450); RED BLOOD COUNT 5.01 10^6/uL (4.00-5.40)
[2021-04-09 10:35] LABS: ALBUMIN 3.8 GM/DL (3.2-5.2); ALT/SGPT 21 U/L (12-78); BILIRUBIN,TOTAL 0.3 MG/DL (0.2-1.0); BLOOD UREA NITROGEN 11 MG/DL (7-18); CALCIUM LEVEL 9.3 MG/DL (8.8-10.2); CARBON DIOXIDE LEVEL 28 MEQ/L (21-32); CHLORIDE LEVEL 104 MEQ/L (98-107); CHOLESTEROL LEVEL 166 MG/DL (<200); CHOLESTEROL RISK RATIO 3.531 (<5); CREATININE FOR GFR 0.66 MG/DL (0.55-1.30); FREE T4 1.16 NG/DL (0.76-1.46); GLOMERULAR FILTRATION RATE > 60.0 (>45); GLUCOSE, FASTING 86 MG/DL (70-100); HDL CHOLESTEROL 47 MG/DL (>40); LDL CHOLESTEROL 101 MG/DL (<100); NON-HDL-C 119 MG/DL; POTASSIUM SERUM 4.6 MEQ/L (3.5-5.1); SODIUM LEVEL 138 MEQ/L (136-145); TOTAL 25(OH) VITAMIN D 58.6 NG/ML (30.0-100.0); TOTAL PROTEIN 7.8 GM/DL (6.4-8.2); TRIGLYCERIDES LEVEL 91 MG/DL (<150)
== END ==
LOC: M LAB 08:23
PROVIDERS: ATTEND Physician Assistant
DX: G47.33 Obstructive sleep apnea (adult) (pediatric) (principal); I10 Essential (primary) hypertension; E55.9 Vitamin D deficiency, unspecified

== ENCOUNTER → 2021-05-05 | Outpatient (CLI) | payer OTHER ==
--- NOTE | 2021-05-06 09:36 | ECHO ---
ECHOCARDIOGRAM DATE OF PROCEDURE: 05/05/2021 Age: Gender: F Height: 167 cm Weight: 88 kg REFERRING PHYSICIAN: Dr. Melgoza INDICATION: Heart murmur MEASUREMENTS: IVS: 1.1 LV: 3.8 LVPW: 1.1 LA: 3.5 Aorta: 2.9 IVC: 1.2 Mitral E wave velocity is 87; A wave 114 E prime septal: 7.7 E prime lateral: 8.1 FINDINGS: This study is of adequate technical quality; underlying sinus rhythm. Left ventricle has normal size and normal left ventricular (LV) systolic function with estimated ejection fraction (EF) around 65%. Right ventricle also has normal size and systolic function. Both atria appear normal. Aortic valve is sclerotic but has three cusps and preserved mobility. There are also minimal degenerative abnormalities of mitral valve with mitral annular calcifications. Tricuspid and pulmonic valves appear normal. Trivial pericardial effusion is noted. There is apparently lipomatous hypertrophy of atrial septum. This is an incidental finding of no clinical importance. Inferior vena cava has normal size. Aortic root is normal. Aortic arch also appears normal. Abdominal aorta was not well seen. Doppler interrogation reveals competent aortic valve without significant stenosis or insufficiency. There is trace mitral and trace tricuspid insufficiency. Calculated pulmonary artery pressure was within normal limits. Based on color Doppler imaging of atrial septum, I cannot rule out small patent foramen ovale (PFO). CONCLUSIONS: 1. Study is of adequate technical quality; underlying sinus rhythm. 2. Normal left ventricle (LV) size with preserved left ventricular (LV) systolic function and grade 1 diastolic dysfunction. 3. Aortic sclerosis with no stenosis or insufficiency. 4. Trace mitral and tricuspid insufficiency. 5. Normal central venous pressure and normal pulmonary artery pressure. 6. Trace pericardial effusion.
== END ==
LOC: M CARPUL 14:19
PROVIDERS: ATTEND Family Medicine
DX: R01.1 Cardiac murmur, unspecified (principal)

== ENCOUNTER → 2021-05-12 | Outpatient (CLI) | payer OTHER ==
[2021-05-12 10:03] LABS: HEMATOCRIT 43.7 % (36.0-47.0); HEMOGLOBIN 14.3 g/dl (12.0-15.5); MEAN CORPUSCULAR HEMOGLOBIN 28.3 pg (27.0-33.0); MEAN CORPUSCULAR HGB CONC 32.7 g/dl (32.0-36.5); MEAN CORPUSCULAR VOLUME 86.5 fl (80.0-96.0); PLATELET COUNT, AUTOMATED 357 10^3/uL (150-450); RED BLOOD COUNT 5.05 10^6/uL (4.00-5.40); WHITE BLOOD COUNT 8.1 10^3/uL (4.0-10.0)
[2021-05-12 10:28] LABS: ALBUMIN 3.9 GM/DL (3.2-5.2); ALT/SGPT 24 U/L (12-78); BILIRUBIN,TOTAL 0.3 MG/DL (0.2-1.0); BLOOD UREA NITROGEN 17 MG/DL (7-18); CALCIUM LEVEL 9.5 MG/DL (8.8-10.2); CARBON DIOXIDE LEVEL 28 MEQ/L (21-32); CHLORIDE LEVEL 104 MEQ/L (98-107); CHOLESTEROL LEVEL 194 MG/DL (<200); CHOLESTEROL RISK RATIO 4.731 (<5); CREATININE FOR GFR 0.76 MG/DL (0.55-1.30); GLOMERULAR FILTRATION RATE > 60.0 (>45); GLUCOSE, FASTING 89 MG/DL (70-100); HDL CHOLESTEROL 41 MG/DL (>40); LDL CHOLESTEROL 125 MG/DL (<100); NON-HDL-C 153 MG/DL; POTASSIUM SERUM 4.4 MEQ/L (3.5-5.1); SODIUM LEVEL 136 MEQ/L (136-145); TOTAL PROTEIN 7.8 GM/DL (6.4-8.2); TRIGLYCERIDES LEVEL 140 MG/DL (<150)
== END ==
LOC: M LAB 09:03
PROVIDERS: ATTEND Physician Assistant
DX: L40.0 Psoriasis vulgaris (principal)

== ENCOUNTER → 2021-06-14 | Outpatient (CLI) | payer OTHER ==
[~2021-06-14] MED LIST changes: -CLOB0.77 TOP; +CLOB1SPR TOP; -LISI-898 PO; +LISI5TAB11 PO; -OMEP-221 PO; +OMEP40CA5 PO
[2021-06-14 17:44] LABS: HEPATITIS B CORE ANTIBODY IGM NEGATIVE (NEGATIVE); HEPATITIS B SURFACE ANTIGEN NEGATIVE (NEGATIVE); HEPATITIS C VIRUS ABY INDEX < 0.0 INDEX (<0.8); HIV 1&2 SCREEN CENTAUR NEGATIVE (NEGATIVE)
== END ==
LOC: M LAB 15:08
PROVIDERS: ATTEND Nurse Practitioner Family
DX: L40.0 Psoriasis vulgaris (principal)

== ENCOUNTER → 2021-07-17 | Outpatient (CLI) | payer OTHER ==
[2021-07-17 09:22] LABS: BASO % 0.5 % (0.0-1.0); EOS # 0.2 10^3/uL (0.0-0.5); EOS % 2.6 % (0.0-3.0); HEMATOCRIT 42.6 % (36.0-47.0); HEMOGLOBIN 13.9 g/dl (12.0-15.5); LYMPH # 1.9 10^3/uL (1.5-5.0); LYMPH % 28.6 % (24.0-44.0); MEAN CORPUSCULAR HEMOGLOBIN 28.1 pg (27.0-33.0); MEAN CORPUSCULAR HGB CONC 32.6 g/dl (32.0-36.5); MEAN CORPUSCULAR VOLUME 86.1 fl (80.0-96.0); MONO # 0.5 10^3/uL (0.0-0.8); MONO % 7.8 % (2.0-8.0); NEUTROPHILS # 3.9 10^3/uL (1.5-8.5); NEUTROPHILS % 60.2 % (36.0-66.0); PLATELET COUNT, AUTOMATED 315 10^3/uL (150-450); RED BLOOD COUNT 4.95 10^6/uL (4.00-5.40); WHITE BLOOD COUNT 6.5 10^3/uL (4.0-10.0)
[2021-07-17 09:45] LABS: ALBUMIN 3.9 GM/DL (3.2-5.2); ALT/SGPT 21 U/L (12-78); BILIRUBIN,TOTAL 0.3 MG/DL (0.2-1.0); BLOOD UREA NITROGEN 12 MG/DL (7-18); CALCIUM LEVEL 9.2 MG/DL (8.8-10.2); CARBON DIOXIDE LEVEL 29 MEQ/L (21-32); CHLORIDE LEVEL 104 MEQ/L (98-107); CREATININE FOR GFR 0.62 MG/DL (0.55-1.30); GLOMERULAR FILTRATION RATE > 60.0 (>45); GLUCOSE, FASTING 89 MG/DL (70-100); POTASSIUM SERUM 4.4 MEQ/L (3.5-5.1); SODIUM LEVEL 139 MEQ/L (136-145); TOTAL PROTEIN 7.4 GM/DL (6.4-8.2)
== END ==
LOC: M LAB 08:34
PROVIDERS: ATTEND Family Medicine
DX: E55.9 Vitamin D deficiency, unspecified (principal); I10 Essential (primary) hypertension

== ENCOUNTER → 2021-11-02 | Outpatient (CLI) | payer OTHER ==
[2021-11-02 16:07] LABS: BASO % 0.3 % (0.0-1.0); EOS # 0.2 10^3/uL (0.0-0.5); EOS % 1.8 % (0.0-3.0); HEMATOCRIT 43.1 % (36.0-47.0); HEMOGLOBIN 13.7 g/dl (12.0-15.5); LYMPH # 2.6 10^3/uL (1.5-5.0); MEAN CORPUSCULAR HEMOGLOBIN 27.8 pg (27.0-33.0); MEAN CORPUSCULAR HGB CONC 31.8 g/dl (32.0-36.5); MEAN CORPUSCULAR VOLUME 87.4 fl (80.0-96.0); MONO # 0.7 10^3/uL (0.0-0.8); MONO % 7.6 % (2.0-8.0); PLATELET COUNT, AUTOMATED 344 10^3/uL (150-450); RED BLOOD COUNT 4.93 10^6/uL (4.00-5.40); WHITE BLOOD COUNT 9.5 10^3/uL (4.0-10.0)
[2021-11-02 16:32] LABS: BLOOD UREA NITROGEN 10 MG/DL (7-18); CARBON DIOXIDE LEVEL 27 MEQ/L (21-32); CHLORIDE LEVEL 104 MEQ/L (98-107); GLOMERULAR FILTRATION RATE > 60.0 (>45); GLUCOSE, FASTING 93 MG/DL (70-100); POTASSIUM SERUM 4.6 MEQ/L (3.5-5.1); SODIUM LEVEL 139 MEQ/L (136-145)
[2021-11-02 16:33] LABS: CALCIUM LEVEL 9.9 MG/DL (8.8-10.2)
== END ==
LOC: M PLALAB 14:16
PROVIDERS: ATTEND Nurse Practitioner Adult Health
DX: I10 Essential (primary) hypertension (principal)

== ENCOUNTER → 2021-11-11 | Outpatient (CLI) | payer OTHER | LOC: M RAD 14:15 | PROVIDERS: ATTEND Internal Medicine Pulmonary Disease | DX: R91.8 Other nonspecific abnormal finding of lung field (principal) ==

== ENCOUNTER → 2022-01-22 | Outpatient (CLI) | payer OTHER ==
[~2022-01-22] MED LIST changes: +LEVO1TAB40 PO; -LEVO750T13 PO
[2022-01-22 09:32] LABS: BASO % 0.3 % (0.0-1.0); EOS # 0.2 10^3/uL (0.0-0.5); EOS % 2.7 % (0.0-3.0); HEMOGLOBIN 14.2 g/dl (12.0-15.5); LYMPH # 2.2 10^3/uL (1.5-5.0); LYMPH % 30.3 % (24.0-44.0); MEAN CORPUSCULAR HEMOGLOBIN 28.1 pg (27.0-33.0); MEAN CORPUSCULAR HGB CONC 32.3 g/dl (32.0-36.5); MEAN CORPUSCULAR VOLUME 87.1 fl (80.0-96.0); MONO # 0.5 10^3/uL (0.0-0.8); MONO % 6.9 % (2.0-8.0); NEUTROPHILS # 4.2 10^3/uL (1.5-8.5); NEUTROPHILS % 59.4 % (36.0-66.0); PLATELET COUNT, AUTOMATED 331 10^3/uL (150-450); RED BLOOD COUNT 5.05 10^6/uL (4.00-5.40); WHITE BLOOD COUNT 7.1 10^3/uL (4.0-10.0)
[2022-01-22 10:08] LABS: ALBUMIN 4.1 GM/DL (3.2-5.2); ALT/SGPT 20 U/L (12-78); BILIRUBIN,TOTAL 0.4 MG/DL (0.2-1.0); BLOOD UREA NITROGEN 10 MG/DL (7-18); CALCIUM LEVEL 9.6 MG/DL (8.8-10.2); CARBON DIOXIDE LEVEL 28 MEQ/L (21-32); CHLORIDE LEVEL 103 MEQ/L (98-107); CHOLESTEROL LEVEL 188 MG/DL (<200); CREATININE FOR GFR 0.68 MG/DL (0.55-1.30); GLOMERULAR FILTRATION RATE > 60.0 (>45); GLUCOSE, FASTING 91 MG/DL (70-100); HDL CHOLESTEROL 47 MG/DL (>40); LDL CHOLESTEROL 129 MG/DL (<100); NON-HDL-C 141 MG/DL; POTASSIUM SERUM 4.9 MEQ/L (3.5-5.1); SODIUM LEVEL 134 MEQ/L (136-145); TOTAL PROTEIN 7.8 GM/DL (6.4-8.2); TRIGLYCERIDES LEVEL 61 MG/DL (<150)
[2022-01-24 09:54] LABS: TOTAL 25(OH) VITAMIN D 86.2 NG/ML (30.0-100.0)
== END ==
LOC: M LAB 09:04
PROVIDERS: ATTEND Nurse Practitioner Adult Health
DX: I10 Essential (primary) hypertension (principal); E55.9 Vitamin D deficiency, unspecified; E66.8 Other obesity

== ENCOUNTER 2022-01-29 15:19 | Emergency (ER) | payer OTHER ==
[~2022-01-29] VITALS: Ht 162.6 cm; Wt 89.5 kg
[2022-01-29] MEDS ORDERED: SAXE1INJ (15:28)
[2022-01-29] MEDS ORDERED: GUSE100A (15:28)
[2022-01-29] MEDS ORDERED: PHENAZOPYRIDINE 100 MG TAB PO ONE ×2 (16:50→18:10)
[2022-01-29] MEDS ORDERED: KETOROLAC TROMETHAMINE 10 MG TAB PO ONE (16:50)
[2022-01-29] MEDS ORDERED: CEFD300C PO (18:06)
[2022-01-29] MEDS ORDERED: PHEN-372 PO (18:06)
[2022-01-29] MEDS ORDERED: CEFDINIR 300 MG CAP (OMNICEF) PO ONE (18:10)
[2022-01-29 18:17] VITALS: BP 137/63
== END 2022-01-29 18:21 | disposition home or self-care (01) ==
LOC: M ED 15:19
DX: N39.0 Urinary tract infection, site not specified (principal); R31.9 Hematuria, unspecified; I10 Essential (primary) hypertension; Z88.0 Allergy status to penicillin; Z88.1 Allergy status to other antibiotic agents; Z88.6 Allergy status to analgesic agent; Z79.811 Long term (current) use of aromatase inhibitors; Z79.899 Other long term (current) drug therapy

== ENCOUNTER → 2022-02-24 | Outpatient (CLI) | payer OTHER ==
[~2022-02-24] MED LIST changes: +CEFD300C PO; +GUSE100A; +PHEN-372 PO; +SAXE1INJ
== END ==
LOC: M WHC 14:43
PROVIDERS: ATTEND Family Medicine
DX: Z12.31 Encounter for screening mammogram for malignant neoplasm of breast (principal)

== ENCOUNTER → 2022-04-01 | Outpatient (CLI) | payer OTHER ==
[2022-04-01 13:45] LABS: BASO % 0.4 % (0.0-1.0); EOS # 0.3 10^3/uL (0.0-0.5); EOS % 3.6 % (0.0-3.0); HEMATOCRIT 43.5 % (36.0-47.0); HEMOGLOBIN 13.7 g/dl (12.0-15.5); LYMPH # 2.2 10^3/uL (1.5-5.0); LYMPH % 31.5 % (24.0-44.0); MEAN CORPUSCULAR HEMOGLOBIN 28.1 pg (27.0-33.0); MEAN CORPUSCULAR HGB CONC 31.5 g/dl (32.0-36.5); MEAN CORPUSCULAR VOLUME 89.1 fl (80.0-96.0); MONO # 0.8 10^3/uL (0.0-0.8); MONO % 11.4 % (2.0-8.0); NEUTROPHILS # 3.7 10^3/uL (1.5-8.5); PLATELET COUNT, AUTOMATED 320 10^3/uL (150-450); RED BLOOD COUNT 4.88 10^6/uL (4.00-5.40)
[2022-04-01 14:22] LABS: ERYTHROCYTE SEDIMENTATION RATE 9 mm/hr (0-30)
[2022-04-01 14:23] LABS: C REACTIVE PROTEIN QUANTITATIV 0.5 MG/DL (<1.0); MAGNESIUM LEVEL 1.8 MG/DL (1.8-2.4)
== END ==
LOC: M PLALAB 11:10
PROVIDERS: ATTEND Nurse Practitioner Adult Health
DX: M79.662 Pain in left lower leg (principal)

== ENCOUNTER → 2022-04-14 | Outpatient (CLI) | payer OTHER | LOC: M RAD 08:48 | PROVIDERS: ATTEND Family Medicine | DX: M54.16 Radiculopathy, lumbar region (principal); R25.1 Tremor, unspecified; R39.15 Urgency of urination ==

== ENCOUNTER → 2022-04-14 | Outpatient (CLI) | payer OTHER | LOC: M PLALAB 10:57 | PROVIDERS: ATTEND Physician Assistant | DX: Z79.899 Other long term (current) drug therapy (principal) ==

== ENCOUNTER 2022-07-02 09:32 | Emergency (ER) | payer OTHER ==
[~2022-07-02] VITALS: Ht 162.6 cm; Wt 94.0 kg
[2022-07-02] MEDS ORDERED: NORT10CA2 (09:47)
[2022-07-02] MEDS ORDERED: DEXA5TA (09:47)
[2022-07-02] MEDS ORDERED: GABA-282 (09:47)
[2022-07-02] MEDS ORDERED: PERC5TAB12 PO (11:32)
[2022-07-02] MEDS ORDERED: PERCOCET 5MG/325MG TAB PO ONE (11:45)
[2022-07-02 11:55] VITALS: BP 146/69
== END 2022-07-02 12:22 | disposition home or self-care (01) ==
LOC: M ED 09:32
DX: S84.11XA Injury of peroneal nerve at lower leg level, right leg, initial encounter (principal); I10 Essential (primary) hypertension; Z88.0 Allergy status to penicillin; Z88.1 Allergy status to other antibiotic agents; Z88.6 Allergy status to analgesic agent; Z79.811 Long term (current) use of aromatase inhibitors; Z79.899 Other long term (current) drug therapy; Z79.83 Long term (current) use of bisphosphonates

== ENCOUNTER 2022-07-04 07:20 | Emergency (ER) | payer OTHER ==
[~2022-07-04] VITALS: Ht 162.6 cm; Wt 90.9 kg
[~2022-07-04 07:20] MED LIST changes: +DEXA5TA; +GABA-282; +NORT10CA2
[2022-07-04] MEDS ORDERED: LIDOCAINE 5% (LIDODERM) PATCH TD ONE (09:40)
[2022-07-04] MEDS ORDERED: KETOROLAC 30 MG/ML 1ML VIAL IV ONE (09:40)
[2022-07-04] MEDS ORDERED: ACETAMINOPHEN 500 MG TAB PO ONE (09:40)
[2022-07-04] MEDS ORDERED: traMADol 50 MG TAB PO ONE (09:50)
[2022-07-04] MEDS ORDERED: TRAM50TA2 PO (15:31)
[2022-07-04] MEDS ORDERED: MEDR4PAK PO (15:32)
[2022-07-04] MEDS ORDERED: LIDO5DIS41 TD (15:32)
[2022-07-04 15:55] VITALS: BP 133/61
== END 2022-07-04 15:56 | disposition home or self-care (01) ==
LOC: M ED 07:20
DX: M48.062 Spinal stenosis, lumbar region with neurogenic claudication (principal); M47.817 Spondylosis without myelopathy or radiculopathy, lumbosacral region; M71.38 Other bursal cyst, other site; I10 Essential (primary) hypertension; K21.9 Gastro-esophageal reflux disease without esophagitis; E78.5 Hyperlipidemia, unspecified; C34.90 Malignant neoplasm of unspecified part of unspecified bronchus or lung; Z87.891 Personal history of nicotine dependence; Z88.0 Allergy status to penicillin; Z88.1 Allergy status to other antibiotic agents; Z88.6 Allergy status to analgesic agent; Z79.811 Long term (current) use of aromatase inhibitors; Z79.891 Long term (current) use of opiate analgesic; Z79.899 Other long term (current) drug therapy
CPT/HCPCS: 72148; 96374; 99284; J1885

== ENCOUNTER → 2022-07-13 | Outpatient (CLI) | payer OTHER ==
[~2022-07-13] MED LIST changes: +LIDO5DIS41 TD; +MEDR4PAK PO
== END ==
LOC: M SOG 07:56
PROVIDERS: ATTEND Orthopaedic Surgery
DX: M51.36 Other intervertebral disc degeneration, lumbar region (principal); M51.37 Other intervertebral disc degeneration, lumbosacral region

== ENCOUNTER → 2022-07-18 | Outpatient (CLI) | payer OTHER | LOC: M PLAIMG 09:53 | PROVIDERS: ATTEND Orthopaedic Surgery | DX: M48.00 Spinal stenosis, site unspecified (principal); M43.10 Spondylolisthesis, site unspecified ==

== ENCOUNTER → 2022-08-03 | Outpatient (CLI) | payer OTHER ==
[2022-08-03 11:50] LABS: BASO % 0.3 % (0.0-1.0); EOS % 0.5 % (0.0-3.0); HEMATOCRIT 47.2 % (36.0-47.0); HEMOGLOBIN 14.9 g/dl (12.0-15.5); LYMPH # 2.1 10^3/uL (1.5-5.0); MEAN CORPUSCULAR HEMOGLOBIN 27.9 pg (27.0-33.0); MEAN CORPUSCULAR HGB CONC 31.6 g/dl (32.0-36.5); MEAN CORPUSCULAR VOLUME 88.4 fl (80.0-96.0); MONO # 0.6 10^3/uL (0.0-0.8); NEUTROPHILS # 5.3 10^3/uL (1.5-8.5); NEUTROPHILS % 65.8 % (36.0-66.0); PLATELET COUNT, AUTOMATED 431 10^3/uL (150-450); RED BLOOD COUNT 5.34 10^6/uL (4.00-5.40)
[2022-08-03 12:18] LABS: ALBUMIN 4.2 G/DL (3.2-5.2); ALKALINE PHOSPHATASE 77 U/L (46-116); ALT/SGPT 25 U/L (7.0-40); AST/SGOT 20 U/L (<34); BILIRUBIN,TOTAL 0.5 MG/DL (0.3-1.2); BLOOD UREA NITROGEN 9 MG/DL (9-23); CALCIUM LEVEL 9.5 MG/DL (8.3-10.6); CARBON DIOXIDE LEVEL 27 MMOL/L (20-31); CHLORIDE LEVEL 104 MMOL/L (98-107); CREATININE FOR GFR 0.65 MG/DL (0.55-1.30); GLOMERULAR FILTRATION RATE > 60.0 (>45); GLUCOSE, FASTING 121 MG/DL (74-106); POTASSIUM SERUM 4.5 MMOL/L (3.5-5.1); SODIUM LEVEL 139 MMOL/L (136-145); TOTAL PROTEIN 7.7 G/DL (5.7-8.2)
== END ==
LOC: M PLALAB 07:31
PROVIDERS: ATTEND Nurse Practitioner Adult Health
DX: Z01.818 Encounter for other preprocedural examination (principal)

== ENCOUNTER → 2022-08-04 | Outpatient (REF) | payer OTHER ==
[~2022-08-04] MED LIST changes: +ERGO500029 PO; +IBUP200C25 PO
== END ==
LOC: M LAB REF 10:44
PROVIDERS: ATTEND Nurse Practitioner Adult Health
DX: K92.1 Melena (principal)

== ENCOUNTER 2022-08-23 05:59 | Observation (INO) | payer OTHER ==
[~2022-08-23] VITALS: Ht 162.6 cm; Wt 93.0 kg
[2022-08-23] MEDS ORDERED: oxyCODONE 5MG TAB PO ONE (06:00)
[2022-08-23] MEDS ORDERED: TRANEXAMIC ACID 100 MG/ML 10ML VIAL IV ONE (06:00)
[2022-08-23] MEDS ORDERED: VANCOMYCIN HCL 1,000 MG, VIAL MATE ADAPTER 1 EACH in D5W 250 ML IV ONE (06:50)
[2022-08-23] MEDS ORDERED: fentaNYL 100 MCG/2 ML INJECTION As Ordered ONE (06:58)
[2022-08-23] MEDS ORDERED: HYDROmorphone HCL 2MG/ML 1ML VIAL As Ordered ONE (06:58)
[2022-08-23] MEDS ORDERED: MIDAZOLAM INJ 2MG/2ML VIAL As Ordered ONE ×2 (06:58→11:19)
[2022-08-23] MEDS ORDERED: ONDANSETRON 4MG 2ML VIAL As Ordered ONE (06:58)
[2022-08-23] MEDS ORDERED: ACETAMINOPHEN 1000MG 100ML IV BAG As Ordered ONE (06:58)
[2022-08-23] MEDS ORDERED: ROCURONIUM BROMIDE 50MG/5ML VIAL As Ordered ONE (06:59)
[2022-08-23] MEDS ORDERED: propofoL 200 MG/20 ML VIAL As Ordered ONE (06:59)
[2022-08-23] MEDS ORDERED: LIDOCAINE 2% 100MG/5ML SDV (FOR ANES.) As Ordered ONE (06:59)
[2022-08-23] MEDS ORDERED: propofoL 500 MG/50 ML VIAL As Ordered ONE ×5 (07:04→11:26)
[2022-08-23] MEDS ORDERED: SUCCINYLCHOLINE 100MG/5ML SYRINGE As Ordered ONE (07:08)
[2022-08-23] MEDS ORDERED: BUPIVACAINE LIPOSOME/PF 1.3% 20ML VIAL (13.3MG/ML)(EXPAREL) As Ordered ONE (07:23)
[2022-08-23] MEDS ORDERED: THROMBIN 20,000 UNITS KIT As Ordered ONE ×2 (07:25→08:01)
[2022-08-23] MEDS ORDERED: BUPIVACAINE/EPIN 0.5% 30ML VIAL As Ordered ONE (07:25)
[2022-08-23] MEDS ORDERED: BUPIVACAINE HCL 0.5% 30ML VIAL As Ordered ONE (07:26)
[2022-08-23] MEDS ORDERED: TRANEXAMIC ACID 100 MG/ML 10ML VIAL As Ordered ONE ×2 (07:41→07:51)
[2022-08-23] MEDS ORDERED: LR 1,000 ML IV SCH ×2 (07:50→12:40)
[2022-08-23] MEDS ORDERED: VANCOMYCIN 1000MG/20ML VIAL As Ordered ONE (07:52)
[2022-08-23] MEDS ORDERED: METOCLOPRAMIDE INJ 10MG/2ML VIAL As Ordered ONE (09:17)
[2022-08-23] MEDS ORDERED: PHENYLephrine 500MCG 5ML (100MCG/ML) SYRINGE As Ordered ONE (09:33)
[2022-08-23] MEDS ORDERED: PHENYLEPHRINE 10MG/ML 1ML VIAL As Ordered ONE (09:52)
[2022-08-23] MEDS ORDERED: ONDANSETRON 4MG 2ML VIAL IV PRN (12:40)
[2022-08-23] MEDS ORDERED: oxyCODONE 5MG TAB PO PRN ×3 (12:40→13:00)
[2022-08-23] MEDS ORDERED: fentaNYL 100 MCG/2 ML INJECTION IV PRN (12:40)
[2022-08-23] MEDS ORDERED: HYDROMORPHONE HCL 0.5 MG/ 0.5 ML SYRINGE IV PRN (12:40)
[2022-08-23] MEDS ORDERED: ceFAZolin SOD 2 GM in IV 1 EA IV SCH ×2 (13:00→13:10)
[2022-08-23] MEDS ORDERED: SENNA 8.6 MG TAB (SENOKOT) PO PRN (13:00)
[2022-08-23 15:15] VITALS: BP 127/73
[2022-08-23] MEDS: ASCORBIC ACID 500 MG TAB PO SCH (15:43)
[2022-08-23] MEDS: FERROUS SULFATE 325MG TAB PO SCH (15:43)
[2022-08-23 15:45] VITALS: BP 158/90
[2022-08-23] MEDS: LR 1,000 ML IV SCH (15:50)
[2022-08-23] MEDS: ONDANSETRON 4MG 2ML VIAL IV PRN ×2 (16:03→19:51)
[2022-08-23 16:45] VITALS: BP 151/71
[2022-08-23 17:45] VITALS: BP 155/82
[2022-08-23] MEDS: ACETAMINOPHEN TAB 650MG DOSE (2X325MG) PO SCH ×3 (18:00→23:37)
[2022-08-23] MEDS: VANCOMYCIN HCL 1,000 MG, VIAL MATE ADAPTER 1 EACH in NS 250 ML IV SCH (18:36)
[2022-08-23 18:45] VITALS: BP 159/84
[2022-08-23] MEDS: MORPHINE 4 MG/ML 1ML VIAL IV PRN ×2 (19:24→23:33)
[2022-08-23 19:34] VITALS: BP 161/85
[2022-08-23] MEDS ORDERED: LR 500 ML IV ONE (20:10)
[2022-08-23] MEDS: METOCLOPRAMIDE INJ 10MG/2ML VIAL IV PRN (20:28)
[2022-08-23] MEDS ORDERED: NAPROXEN 250 MG TAB PO SCH (21:00)
[2022-08-23] MEDS: ASPIRIN 81MG ENTERIC TABLET PO SCH (21:39)
[2022-08-23] MEDS: DOCUSATE SODIUM 100MG CAPSULE PO SCH (21:40)
[2022-08-24] VITALS (8 sets, daily range): BP systolic 127–160; BP diastolic 56–80
[2022-08-24 00:34] LABS: HEMATOCRIT 35.9 % (36.0-47.0); MEAN CORPUSCULAR HEMOGLOBIN 28.6 pg (27.0-33.0); MEAN CORPUSCULAR HGB CONC 33.4 g/dl (32.0-36.5); MEAN CORPUSCULAR VOLUME 85.5 fl (80.0-96.0); PLATELET COUNT, AUTOMATED 277 10^3/uL (150-450); WHITE BLOOD COUNT 13.5 10^3/uL (4.0-10.0)
[2022-08-24 01:01] LABS: ALBUMIN 3.5 G/DL (3.2-5.2); ALKALINE PHOSPHATASE 67 U/L (46-116); ALT/SGPT 31 U/L (7.0-40); AST/SGOT 19 U/L (<34); BILIRUBIN,TOTAL 0.6 MG/DL (0.3-1.2); BLOOD UREA NITROGEN 10 MG/DL (9-23); CALCIUM LEVEL 8.5 MG/DL (8.3-10.6); CARBON DIOXIDE LEVEL 25 MMOL/L (20-31); CHLORIDE LEVEL 102 MMOL/L (98-107); CREATININE FOR GFR 0.48 MG/DL (0.55-1.30); GLOMERULAR FILTRATION RATE > 60.0 (>45); GLUCOSE, FASTING 130 MG/DL (74-106); SODIUM LEVEL 134 MMOL/L (136-145); TOTAL PROTEIN 6.3 G/DL (5.7-8.2)
[2022-08-24] MEDS ORDERED: METOPROLOL TART 25 MG TABLET PO ONE (01:15)
[2022-08-24] MEDS: ONDANSETRON 4MG 2ML VIAL IV PRN ×4 (01:24→20:11)
[2022-08-24] MEDS ORDERED: HYDROMORPHONE HCL 0.5 MG/ 0.5 ML SYRINGE IV ONE (02:20)
[2022-08-24] MEDS: METOCLOPRAMIDE INJ 10MG/2ML VIAL IV PRN ×3 (02:53→17:29)
[2022-08-24] MEDS: LR 1,000 ML IV SCH ×3 (03:37→13:24)
[2022-08-24 05:39] LABS: HEMATOCRIT 36.1 % (36.0-47.0); HEMOGLOBIN 11.9 g/dl (12.0-15.5); MEAN CORPUSCULAR HEMOGLOBIN 28.5 pg (27.0-33.0); MEAN CORPUSCULAR VOLUME 86.4 fl (80.0-96.0); PLATELET COUNT, AUTOMATED 261 10^3/uL (150-450); RED BLOOD COUNT 4.18 10^6/uL (4.00-5.40); WHITE BLOOD COUNT 13.8 10^3/uL (4.0-10.0)
[2022-08-24] MEDS: ACETAMINOPHEN TAB 650MG DOSE (2X325MG) PO SCH ×3 (05:39→17:28)
[2022-08-24 05:53] LABS: INR 1.01; PROTHROMBIN TIME 13.5 SECONDS (12.5-14.5)
[2022-08-24 06:07] LABS: ALBUMIN 3.3 G/DL (3.2-5.2); ALKALINE PHOSPHATASE 64 U/L (46-116); ALT/SGPT 28 U/L (7.0-40); AST/SGOT 31 U/L (<34); BILIRUBIN,TOTAL 0.5 MG/DL (0.3-1.2); BLOOD UREA NITROGEN 10 MG/DL (9-23); CALCIUM LEVEL 8.2 MG/DL (8.3-10.6); CARBON DIOXIDE LEVEL 26 MMOL/L (20-31); CHLORIDE LEVEL 102 MMOL/L (98-107); CREATININE FOR GFR 0.49 MG/DL (0.55-1.30); GLOMERULAR FILTRATION RATE > 60.0 (>45); GLUCOSE, FASTING 115 MG/DL (74-106); SODIUM LEVEL 135 MMOL/L (136-145)
[2022-08-24] MEDS: VANCOMYCIN HCL 1,000 MG, VIAL MATE ADAPTER 1 EACH in NS 250 ML IV SCH (06:16)
[2022-08-24] MEDS: MORPHINE 4 MG/ML 1ML VIAL IV PRN (06:17)
[2022-08-24] MEDS: ASCORBIC ACID 500 MG TAB PO SCH (09:00)
[2022-08-24] MEDS: FERROUS SULFATE 325MG TAB PO SCH (09:00)
[2022-08-24] MEDS: DOCUSATE SODIUM 100MG CAPSULE PO SCH ×2 (09:00→20:18)
[2022-08-24] MEDS: METOPROLOL TART 25 MG TABLET PO SCH ×2 (11:17→20:18)
[2022-08-24] MEDS: ASPIRIN 81MG ENTERIC TABLET PO SCH ×2 (11:17→20:13)
[2022-08-24] MEDS: CelecoXIB (CeleBREX) 100 MG CAP PO SCH ×2 (11:22→20:13)
[2022-08-24] MEDS ORDERED: MUPI2OI NARES (11:39)
[2022-08-24] MEDS ORDERED: ONDA4TAB6 PO (11:39)
[2022-08-24] MEDS ORDERED: HOME MED LIST COMPLETE! XX SCH (11:40)
[2022-08-24] MEDS ORDERED: GUSE100A SQ (11:40)
[2022-08-25] MEDS: METOCLOPRAMIDE INJ 10MG/2ML VIAL IV PRN ×2 (00:20→06:54)
[2022-08-25] MEDS: ACETAMINOPHEN TAB 650MG DOSE (2X325MG) PO SCH ×2 (00:20→05:34)
[2022-08-25] MEDS: ONDANSETRON 4MG 2ML VIAL IV PRN (03:24)
[2022-08-25] MEDS ORDERED: LIDOCAINE 5% (LIDODERM) PATCH TD PRN (05:25)
[2022-08-25] MEDS: LR 1,000 ML IV SCH (05:35)
[2022-08-25 05:40] VITALS: BP 143/66
[2022-08-25 06:10] LABS: HEMATOCRIT 35.4 % (36.0-47.0); HEMOGLOBIN 11.4 g/dl (12.0-15.5); MEAN CORPUSCULAR HEMOGLOBIN 28.7 pg (27.0-33.0); MEAN CORPUSCULAR HGB CONC 32.2 g/dl (32.0-36.5); MEAN CORPUSCULAR VOLUME 89.2 fl (80.0-96.0); PLATELET COUNT, AUTOMATED 235 10^3/uL (150-450); RED BLOOD COUNT 3.97 10^6/uL (4.00-5.40)
[2022-08-25 06:20] LABS: INR 1.1; PROTHROMBIN TIME 14.4 SECONDS (12.5-14.5)
[2022-08-25 07:03] LABS: ALBUMIN 3.1 G/DL (3.2-5.2); ALKALINE PHOSPHATASE 61 U/L (46-116); ALT/SGPT 29 U/L (7.0-40); AST/SGOT 36 U/L (<34); BILIRUBIN,TOTAL 0.5 MG/DL (0.3-1.2); BLOOD UREA NITROGEN 8 MG/DL (9-23); CALCIUM LEVEL 8.5 MG/DL (8.3-10.6); CARBON DIOXIDE LEVEL 26 MMOL/L (20-31); CHLORIDE LEVEL 105 MMOL/L (98-107); CREATININE FOR GFR 0.56 MG/DL (0.55-1.30); GLOMERULAR FILTRATION RATE > 60.0 (>45); GLUCOSE, FASTING 131 MG/DL (74-106); PHOSPHORUS LEVEL 2.2 MG/DL (2.4-5.1); POTASSIUM SERUM 3.6 MMOL/L (3.5-5.1); SODIUM LEVEL 140 MMOL/L (136-145); TOTAL PROTEIN 5.9 G/DL (5.7-8.2)
[2022-08-25] MEDS ORDERED: ACET1TAB55 PO (08:27)
[2022-08-25] MEDS ORDERED: CELE100C PO (08:27)
[2022-08-25] MEDS: DOCUSATE SODIUM 100MG CAPSULE PO SCH (08:38)
[2022-08-25] MEDS: ASCORBIC ACID 500 MG TAB PO SCH (08:38)
[2022-08-25] MEDS: FERROUS SULFATE 325MG TAB PO SCH (08:38)
[2022-08-25] MEDS: CelecoXIB (CeleBREX) 100 MG CAP PO SCH (08:38)
[2022-08-25] MEDS: ASPIRIN 81MG ENTERIC TABLET PO SCH (08:38)
[2022-08-25] MEDS: METOPROLOL TART 25 MG TABLET PO SCH (08:39)
== END 2022-08-25 11:15 | disposition home or self-care (01) ==
LOC: M SDC 05:59 → M MS5PR 06:00 → UNDOFXSDCSVC 08-24 00:08 → M PCU 08-24 00:42 → M MS5PR 08-24 00:42 → UNDOADMOB 08-24 10:13 → M PCU 08-24 10:13 → M SDC 08-24 10:40 → M PCU 08-24 10:40 → M MSPAV 08-24 15:29 → UNDODISOB 08-25 11:15
PROVIDERS: ADMIT Orthopaedic Surgery; ATTEND Orthopaedic Surgery
DX: M48.061 Spinal stenosis, lumbar region without neurogenic claudication (principal); Z88.0 Allergy status to penicillin; Z88.8 Allergy status to other drugs, medicaments and biological substances
CPT/HCPCS: 20931; 20936; 22630; 22853; 36415; 71045; 72100; 76000; 80053; 80069; 84443; 84484; 85027; 85610; 93005; 96361; 96365; 96366; 96375; 96376; 97161; 97165; C1713; C1762; C9290; J0131; J0330; J1100; J1170; J2250; J2370; J2405; J2765; J3010; S0020

== ENCOUNTER → 2022-09-05 | Outpatient (CLI) | payer OTHER ==
[~2022-09-05] MED LIST changes: +ACET1TAB55 PO; +CELE100C PO; +GUSE100A SQ; +MUPI2OI NARES; +ONDA4TAB6 PO
== END ==
LOC: M SOG 08:11
PROVIDERS: ATTEND Orthopaedic Surgery
DX: Z47.89 Encounter for other orthopedic aftercare (principal)

== ENCOUNTER → 2022-10-05 | Outpatient (CLI) | payer OTHER | LOC: M SOG 07:50 | PROVIDERS: ATTEND Orthopaedic Surgery | DX: Z47.89 Encounter for other orthopedic aftercare (principal) ==

== ENCOUNTER → 2022-11-24 | Outpatient (CLI) | payer OTHER ==
[2022-11-24 15:38] LABS: BASO % 0.2 % (0.0-1.0); EOS # 0.1 10^3/uL (0.0-0.5); EOS % 1.3 % (0.0-3.0); HEMATOCRIT 39.8 % (36.0-47.0); HEMOGLOBIN 12.7 g/dl (12.0-15.5); LYMPH # 2.5 10^3/uL (1.5-5.0); LYMPH % 30.6 % (24.0-44.0); MEAN CORPUSCULAR HEMOGLOBIN 28.3 pg (27.0-33.0); MEAN CORPUSCULAR HGB CONC 31.9 g/dl (32.0-36.5); MEAN CORPUSCULAR VOLUME 88.6 fl (80.0-96.0); MONO # 0.7 10^3/uL (0.0-0.8); MONO % 8.2 % (2.0-8.0); NEUTROPHILS # 4.9 10^3/uL (1.5-8.5); NEUTROPHILS % 59.5 % (36.0-66.0); PLATELET COUNT, AUTOMATED 343 10^3/uL (150-450); RED BLOOD COUNT 4.49 10^6/uL (4.00-5.40); WHITE BLOOD COUNT 8.2 10^3/uL (4.0-10.0)
[2022-11-24 16:05] LABS: ALBUMIN 4.1 G/DL (3.2-5.2); ALKALINE PHOSPHATASE 94 U/L (46-116); ALT/SGPT 18 U/L (7.0-40); AST/SGOT 17 U/L (<34); BILIRUBIN,TOTAL 0.4 MG/DL (0.3-1.2); BLOOD UREA NITROGEN 13 MG/DL (9-23); CALCIUM LEVEL 9.5 MG/DL (8.3-10.6); CARBON DIOXIDE LEVEL 25 MMOL/L (20-31); CHLORIDE LEVEL 102 MMOL/L (98-107); CREATININE FOR GFR 0.59 MG/DL (0.55-1.30); GLOMERULAR FILTRATION RATE > 60.0 (>45); GLUCOSE, FASTING 87 MG/DL (74-106); POTASSIUM SERUM 4.2 MMOL/L (3.5-5.1); SODIUM LEVEL 134 MMOL/L (136-145); TOTAL PROTEIN 7.3 G/DL (5.7-8.2)
== END ==
LOC: M PLALAB 12:21
PROVIDERS: ATTEND Family Medicine
DX: Z01.818 Encounter for other preprocedural examination (principal)

== ENCOUNTER → 2023-01-05 | Outpatient (CLI) | payer OTHER | LOC: M SOG 07:54 | PROVIDERS: ATTEND Orthopaedic Surgery | DX: Z47.89 Encounter for other orthopedic aftercare (principal) ==

== ENCOUNTER → 2023-01-06 | Outpatient (CLI) | payer OTHER ==
[2023-01-06 13:44] LABS: BASO % 0.3 % (0.0-1.0); EOS # 0.2 10^3/uL (0.0-0.5); EOS % 2.2 % (0.0-3.0); HEMATOCRIT 41.5 % (36.0-47.0); HEMOGLOBIN 13.2 g/dl (12.0-15.5); LYMPH # 2.1 10^3/uL (1.5-5.0); LYMPH % 24.5 % (24.0-44.0); MEAN CORPUSCULAR HEMOGLOBIN 27.4 pg (27.0-33.0); MEAN CORPUSCULAR HGB CONC 31.8 g/dl (32.0-36.5); MEAN CORPUSCULAR VOLUME 86.1 fl (80.0-96.0); MONO # 0.6 10^3/uL (0.0-0.8); MONO % 6.9 % (2.0-8.0); NEUTROPHILS # 5.7 10^3/uL (1.5-8.5); NEUTROPHILS % 65.6 % (36.0-66.0); PLATELET COUNT, AUTOMATED 349 10^3/uL (150-450); RED BLOOD COUNT 4.82 10^6/uL (4.00-5.40); WHITE BLOOD COUNT 8.7 10^3/uL (4.0-10.0)
[2023-01-06 14:19] LABS: ERYTHROCYTE SEDIMENTATION RATE 37 mm/hr (0-30)
== END ==
LOC: M PLALAB 10:53
PROVIDERS: ATTEND Nurse Practitioner Adult Health
DX: D48.7 Neoplasm of uncertain behavior of other specified sites (principal)

== ENCOUNTER → 2023-01-23 | Outpatient (CLI) | payer OTHER | LOC: M WHC 14:42 | PROVIDERS: ATTEND Nurse Practitioner Adult Health | DX: D48.7 Neoplasm of uncertain behavior of other specified sites (principal) ==

== ENCOUNTER → 2023-02-25 | Outpatient (CLI) | payer OTHER ==
[2023-02-25 11:01] LABS: BASO % 0.3 % (0.0-1.0); EOS # 0.2 10^3/uL (0.0-0.5); EOS % 1.6 % (0.0-3.0); HEMATOCRIT 42.3 % (36.0-47.0); HEMOGLOBIN 13.6 g/dl (12.0-15.5); LYMPH % 21.2 % (24.0-44.0); MEAN CORPUSCULAR HEMOGLOBIN 27.4 pg (27.0-33.0); MEAN CORPUSCULAR HGB CONC 32.2 g/dl (32.0-36.5); MEAN CORPUSCULAR VOLUME 85.1 fl (80.0-96.0); MONO # 0.6 10^3/uL (0.0-0.8); MONO % 6.3 % (2.0-8.0); NEUTROPHILS # 6.5 10^3/uL (1.5-8.5); NEUTROPHILS % 70.3 % (36.0-66.0); PLATELET COUNT, AUTOMATED 367 10^3/uL (150-450); RED BLOOD COUNT 4.97 10^6/uL (4.00-5.40); WHITE BLOOD COUNT 9.2 10^3/uL (4.0-10.0)
[2023-02-25 11:30] LABS: ALBUMIN 4.2 G/DL (3.2-5.2); ALKALINE PHOSPHATASE 111 U/L (46-116); ALT/SGPT 24 U/L (7.0-40); AST/SGOT 32 U/L (<34); BILIRUBIN,TOTAL 0.4 MG/DL (0.3-1.2); BLOOD UREA NITROGEN 16 MG/DL (9-23); CALCIUM LEVEL 9.9 MG/DL (8.3-10.6); CARBON DIOXIDE LEVEL 28 MMOL/L (20-31); CHLORIDE LEVEL 103 MMOL/L (98-107); CHOLESTEROL LEVEL 197 MG/DL (<200); CHOLESTEROL RISK RATIO 3.73 (<5); CREATININE FOR GFR 0.62 MG/DL (0.55-1.30); GLOMERULAR FILTRATION RATE > 60.0 (>45); GLUCOSE, FASTING 91 MG/DL (74-106); HDL CHOLESTEROL 52.7 MG/DL (>40); LDL CHOLESTEROL 126.1 MG/DL (<100); NON-HDL-C 144.3 MG/DL; POTASSIUM SERUM 4.9 MMOL/L (3.5-5.1); SODIUM LEVEL 139 MMOL/L (136-145); TOTAL PROTEIN 7.8 G/DL (5.7-8.2); TRIGLYCERIDES LEVEL 91 MG/DL (<150)
[2023-02-25 11:32] LABS: FREE T4 1.09 NG/DL (0.89-1.76); THYROID STIMULATING HORMONE 1.587 uIU/ML (0.55-4.78)
[2023-02-25 11:33] LABS: TOTAL 25(OH) VITAMIN D 52.6 NG/ML (20.0-100.0)
== END ==
LOC: M LAB 08:48
PROVIDERS: ATTEND Family Medicine
DX: I10 Essential (primary) hypertension (principal); E55.9 Vitamin D deficiency, unspecified; G47.33 Obstructive sleep apnea (adult) (pediatric)

== ENCOUNTER → 2023-03-10 | Outpatient (CLI) | payer OTHER | LOC: M WHC 14:42 | PROVIDERS: ATTEND Family Medicine | DX: Z12.31 Encounter for screening mammogram for malignant neoplasm of breast (principal) ==

== ENCOUNTER → 2023-06-07 | Outpatient (REF) | payer OTHER | LOC: M SFHCDERM 15:12 | PROVIDERS: ATTEND Physician Assistant | DX: L40.9 Psoriasis, unspecified (principal) ==

== ENCOUNTER → 2023-06-07 | Outpatient (CLI) | payer OTHER | LOC: M LAB 14:53 | PROVIDERS: ATTEND Physician Assistant | DX: L40.9 Psoriasis, unspecified (principal) ==

== ENCOUNTER → 2023-07-06 | Outpatient (CLI) | payer OTHER ==
[~2023-07-06] MED LIST changes: +CALC0.0017 TOP; -CALC0.009 TOP
== END ==
LOC: M SOG 08:44
PROVIDERS: ATTEND Orthopaedic Surgery
DX: M54.50 Low back pain, unspecified (principal); Z98.1 Arthrodesis status; M85.88 Other specified disorders of bone density and structure, other site

== ENCOUNTER → 2023-07-07 | Outpatient (CLI) | payer OTHER | LOC: M SOG 09:47 | PROVIDERS: ATTEND Orthopaedic Surgery | DX: M25.512 Pain in left shoulder (principal) ==

== ENCOUNTER → 2023-10-26 | Outpatient (CLI) | payer OTHER ==
[~2023-10-26] MED LIST changes: +ONDA-282 PO; -ONDA4TAB6 PO
== END ==
LOC: M SOG 09:22
PROVIDERS: ATTEND Orthopaedic Surgery
DX: M43.16 Spondylolisthesis, lumbar region (principal); Z98.1 Arthrodesis status; I70.0 Atherosclerosis of aorta

== ENCOUNTER → 2024-01-05 | Outpatient (CLI) | payer OTHER ==
[2024-01-05 19:14] LABS: BASO % 0.3 % (0.0-1.0); EOS # 0.2 10^3/uL (0.0-0.5); EOS % 1.7 % (0.0-3.0); HEMATOCRIT 42.4 % (36.0-47.0); HEMOGLOBIN 13.4 g/dl (12.0-15.5); LYMPH # 2.7 10^3/uL (1.5-5.0); LYMPH % 26.4 % (24.0-44.0); MEAN CORPUSCULAR HEMOGLOBIN 26.7 pg (27.0-33.0); MEAN CORPUSCULAR HGB CONC 31.6 g/dl (32.0-36.5); MEAN CORPUSCULAR VOLUME 84.6 fl (80.0-96.0); MONO % 9.4 % (2.0-8.0); NEUTROPHILS # 6.3 10^3/uL (1.5-8.5); NEUTROPHILS % 61.9 % (36.0-66.0); PLATELET COUNT, AUTOMATED 377 10^3/uL (150-450); RED BLOOD COUNT 5.01 10^6/uL (4.00-5.40); WHITE BLOOD COUNT 10.2 10^3/uL (4.0-10.0)
[2024-01-05 19:33] LABS: LIPASE 51 U/L (12-53)
[2024-01-05 19:35] LABS: ALBUMIN 4.1 G/DL (3.2-5.2); ALKALINE PHOSPHATASE 106 U/L (46-116); ALT/SGPT 22 U/L (7.0-40); AST/SGOT 22 U/L (<34); BILIRUBIN,DIRECT < 0.1 MG/DL (<0.4); BILIRUBIN,TOTAL 0.3 MG/DL (0.3-1.2); BLOOD UREA NITROGEN 13 MG/DL (9-23); CALCIUM LEVEL 9.7 MG/DL (8.3-10.6); CARBON DIOXIDE LEVEL 26 MMOL/L (20-31); CHLORIDE LEVEL 103 MMOL/L (98-107); CREATININE FOR GFR 0.69 MG/DL (0.55-1.30); GLOMERULAR FILTRATION RATE > 60.0 (>45); GLUCOSE, FASTING 93 MG/DL (74-106); POTASSIUM SERUM 4.5 MMOL/L (3.5-5.1); SODIUM LEVEL 135 MMOL/L (136-145); TOTAL PROTEIN 7.8 G/DL (5.7-8.2)
== END ==
LOC: M PLALAB 14:55
PROVIDERS: ATTEND Physician Assistant
DX: R10.10 Upper abdominal pain, unspecified (principal)

== ENCOUNTER 2024-01-08 07:44 | Day surgery (SDC) | payer OTHER ==
[~2024-01-08] VITALS: Ht 162.6 cm; Wt 102.5 kg
[~2024-01-08 07:44] MED LIST changes: +NS 1,000 ML IV ONE
[2024-01-08] MEDS ORDERED: propofoL 200 MG/20 ML VIAL As Ordered ONE (08:30)
[2024-01-08 10:01] VITALS: TEMP 97.4
[2024-01-08 10:20] VITALS: BP 136/66; O2SAT 99
== END 2024-01-08 10:32 | disposition home or self-care (01) ==
LOC: M OPP 07:44
PROVIDERS: ATTEND Internal Medicine Gastroenterology
DX: Z12.11 Encounter for screening for malignant neoplasm of colon (principal); Z83.719 Family history of colon polyps, unspecified; K64.0 First degree hemorrhoids; K57.30 Diverticulosis of large intestine without perforation or abscess without bleeding; K44.9 Diaphragmatic hernia without obstruction or gangrene; R12 Heartburn; G47.33 Obstructive sleep apnea (adult) (pediatric); Z99.89 Dependence on other enabling machines and devices; Z87.891 Personal history of nicotine dependence; Z79.899 Other long term (current) drug therapy; Z88.0 Allergy status to penicillin; Z88.1 Allergy status to other antibiotic agents; Z88.6 Allergy status to analgesic agent; Z88.8 Allergy status to other drugs, medicaments and biological substances

== ENCOUNTER → 2024-01-26 | Outpatient (CLI) | payer OTHER ==
[~2024-01-26] MED LIST changes: -NS 1,000 ML IV ONE
== END ==
LOC: M RAD 08:00
PROVIDERS: ATTEND Physician Assistant
DX: R10.11 Right upper quadrant pain (principal); K76.0 Fatty (change of) liver, not elsewhere classified

== ENCOUNTER → 2024-02-15 | Outpatient (CLI) | payer OTHER ==
[~2024-02-15] MED LIST changes: +GABA-1172; -GABA-282
[2024-02-15 10:43] LABS: BASO % 0.4 % (0.0-1.0); EOS # 0.1 10^3/uL (0.0-0.5); EOS % 1.8 % (0.0-3.0); HEMATOCRIT 44.4 % (36.0-47.0); HEMOGLOBIN 13.8 g/dl (12.0-15.5); LYMPH # 2.2 10^3/uL (1.5-5.0); LYMPH % 30.5 % (24.0-44.0); MEAN CORPUSCULAR HEMOGLOBIN 26.5 pg (27.0-33.0); MEAN CORPUSCULAR HGB CONC 31.1 g/dl (32.0-36.5); MEAN CORPUSCULAR VOLUME 85.2 fl (80.0-96.0); MONO # 0.5 10^3/uL (0.0-0.8); MONO % 7.4 % (2.0-8.0); NEUTROPHILS # 4.3 10^3/uL (1.5-8.5); NEUTROPHILS % 59.8 % (36.0-66.0); PLATELET COUNT, AUTOMATED 330 10^3/uL (150-450); RED BLOOD COUNT 5.21 10^6/uL (4.00-5.40); WHITE BLOOD COUNT 7.3 10^3/uL (4.0-10.0)
[2024-02-15 11:08] LABS: ALBUMIN 4.2 G/DL (3.2-5.2); ALKALINE PHOSPHATASE 102 U/L (46-116); ALT/SGPT 33 U/L (7.0-40); AST/SGOT 24 U/L (<34); BILIRUBIN,TOTAL 0.4 MG/DL (0.3-1.2); BLOOD UREA NITROGEN 9 MG/DL (9-23); CALCIUM LEVEL 10.3 MG/DL (8.3-10.6); CARBON DIOXIDE LEVEL 27 MMOL/L (20-31); CHLORIDE LEVEL 104 MMOL/L (98-107); CHOLESTEROL LEVEL 213 MG/DL (<200); CHOLESTEROL RISK RATIO 5.13 (<5); CREATININE FOR GFR 0.71 MG/DL (0.55-1.30); GLOMERULAR FILTRATION RATE > 60.0 (>45); GLUCOSE, FASTING 109 MG/DL (74-106); HDL CHOLESTEROL 41.5 MG/DL (>40); LDL CHOLESTEROL 143.7 MG/DL (<100); NON-HDL-C 171.5 MG/DL; SODIUM LEVEL 137 MMOL/L (136-145); THYROID STIMULATING HORMONE 2.666 uIU/ML (0.55-4.78); TOTAL PROTEIN 8.1 G/DL (5.7-8.2); TRIGLYCERIDES LEVEL 139 MG/DL (<150)
[2024-02-15 11:09] LABS: FREE T4 1.23 NG/DL (0.89-1.76)
[2024-02-15 11:10] LABS: TOTAL 25(OH) VITAMIN D 58.5 NG/ML (20.0-100.0)
== END ==
LOC: M PLALAB 08:27
PROVIDERS: ATTEND Nurse Practitioner Adult Health
DX: I10 Essential (primary) hypertension (principal)

== ENCOUNTER → 2024-04-01 | Outpatient (CLI) | payer OTHER ==
[~2024-04-01] MED LIST changes: +CLOB-100 TOP; -CLOB1SPR TOP
== END ==
LOC: M PLAIMG 11:21
PROVIDERS: ATTEND Family Medicine
DX: J20.9 Acute bronchitis, unspecified (principal)

== ENCOUNTER → 2024-04-08 | Outpatient (CLI) | payer OTHER | LOC: M WHC 11:33 | PROVIDERS: ATTEND Family Medicine | DX: Z12.31 Encounter for screening mammogram for malignant neoplasm of breast (principal) ==

== ENCOUNTER → 2024-05-23 | Outpatient (CLI) | payer OTHER | LOC: M SOG 15:50 | PROVIDERS: ATTEND Orthopaedic Surgery | DX: Z98.1 Arthrodesis status (principal); M43.16 Spondylolisthesis, lumbar region ==

== ENCOUNTER → 2024-07-06 | Outpatient (CLI) | payer MEDICARE, OTHER | LOC: M LAB 07-05 15:18 | PROVIDERS: ATTEND Physician Assistant | DX: L40.9 Psoriasis, unspecified (principal) ==

== ENCOUNTER → 2024-09-05 | Outpatient (CLI) | payer MEDICARE ==
[2024-09-05 07:58] LABS: BASO % 0.2 % (0.0-1.0); EOS # 0.2 10^3/uL (0.0-0.5); EOS % 1.8 % (0.0-3.0); HEMATOCRIT 42.5 % (36.0-47.0); HEMOGLOBIN 13.6 g/dl (12.0-15.5); LYMPH # 2.2 10^3/uL (1.5-5.0); LYMPH % 25.2 % (24.0-44.0); MEAN CORPUSCULAR VOLUME 84.3 fl (80.0-96.0); MONO # 0.7 10^3/uL (0.0-0.8); MONO % 7.8 % (2.0-8.0); NEUTROPHILS # 5.7 10^3/uL (1.5-8.5); NEUTROPHILS % 64.8 % (36.0-66.0); PLATELET COUNT, AUTOMATED 343 10^3/uL (150-450); RED BLOOD COUNT 5.04 10^6/uL (4.00-5.40); WHITE BLOOD COUNT 8.9 10^3/uL (4.0-10.0)
[2024-09-05 08:17] LABS: HEMOGLOBIN A1c 5.6 % (4.0-6.0)
[2024-09-05 08:29] LABS: ALBUMIN 3.9 G/DL (3.2-5.2); ALKALINE PHOSPHATASE 94 U/L (35-104); ALT/SGPT 34 U/L (7.0-40); AST/SGOT 23 U/L (<34); BILIRUBIN,TOTAL 0.3 MG/DL (0.3-1.2); BLOOD UREA NITROGEN 20 MG/DL (9-23); CALCIUM LEVEL 9.7 MG/DL (8.3-10.6); CARBON DIOXIDE LEVEL 28 MMOL/L (20-31); CHLORIDE LEVEL 100 MMOL/L (98-107); CHOLESTEROL LEVEL 185 MG/DL (<200); CHOLESTEROL RISK RATIO 4.27 (<5); CREATININE FOR GFR 0.69 MG/DL (0.55-1.30); GLOMERULAR FILTRATION RATE > 90.0 (>45); GLUCOSE, FASTING 109 MG/DL (74-106); HDL CHOLESTEROL 43.3 MG/DL (>40); LDL CHOLESTEROL 109.1 MG/DL (<100); NON-HDL-C 141.7 MG/DL; POTASSIUM SERUM 4.9 MMOL/L (3.5-5.1); SODIUM LEVEL 136 MMOL/L (136-145); TOTAL PROTEIN 7.4 G/DL (5.7-8.2); TRIGLYCERIDES LEVEL 163 MG/DL (<150)
[2024-09-05 08:30] LABS: THYROID STIMULATING HORMONE 2.326 uIU/ML (0.55-4.78); TOTAL 25(OH) VITAMIN D 66.4 NG/ML (20.0-100.0)
[2024-09-05 08:31] LABS: FREE T4 1.22 NG/DL (0.89-1.76)
== END ==
LOC: M LAB 07:25
PROVIDERS: ATTEND Nurse Practitioner Adult Health
DX: I10 Essential (primary) hypertension (principal)

== ENCOUNTER → 2024-11-14 | Outpatient (CLI) | payer MEDICARE ==
[~2024-11-14] MED LIST changes: +LIDO1ADH93 TD; -LIDO5DIS41 TD
== END ==
LOC: M PLAIMG 13:04
PROVIDERS: ATTEND Internal Medicine Critical Care Medicine
DX: Z85.110 Personal history of malignant carcinoid tumor of bronchus and lung (principal); R91.8 Other nonspecific abnormal finding of lung field

== ENCOUNTER → 2024-12-20 | Outpatient (CLI) | payer MEDICARE | LOC: M SOG 06:51 | PROVIDERS: ATTEND Orthopaedic Surgery | DX: M25.562 Pain in left knee (principal); M17.12 Unilateral primary osteoarthritis, left knee ==

== ENCOUNTER → 2025-01-11 | Outpatient (CLI) | payer MEDICARE | LOC: M RAD 08:56 | PROVIDERS: ATTEND Orthopaedic Surgery | DX: M76.52 Patellar tendinitis, left knee (principal); M25.562 Pain in left knee; M17.12 Unilateral primary osteoarthritis, left knee; M94.262 Chondromalacia, left knee; M25.262 Flail joint, left knee ==

== ENCOUNTER → 2025-02-27 | Outpatient (CLI) | payer MEDICARE ==
[2025-02-27 16:45] LABS: BASO # 0.0 10^3/uL (0.0-0.2); BASO % 0.4 % (0.0-1.0); EOS # 0.1 10^3/uL (0.0-0.5); EOS % 1.4 % (0.0-3.0); LYMPH # 2.9 10^3/uL (1.5-5.0); LYMPH % 31.2 % (24.0-44.0); MONO # 0.8 10^3/uL (0.0-0.8); MONO % 8.9 % (2.0-8.0); NEUTROPHILS # 5.3 10^3/uL (1.5-8.5); NEUTROPHILS % 57.9 % (36.0-66.0); PLATELET COUNT, AUTOMATED 360 10^3/uL (150-450)
[2025-02-27 16:49] LABS: INR 0.95
[2025-02-27 17:08] LABS: ALT/SGPT 30.0 U/L (7.0-40); AST/SGOT 27.0 U/L (<34); C REACTIVE PROTEIN QUANTITATIV 1.23 MG/DL (<1.0); CALCIUM LEVEL 9.4 MG/DL (8.3-10.6); CARBON DIOXIDE LEVEL 26.0 MMOL/L (20-31); CHLORIDE LEVEL 101.0 MMOL/L (98-107); CREATININE FOR GFR 0.77 MG/DL (0.55-1.30); GLOMERULAR FILTRATION RATE 84.5 (>45); POTASSIUM SERUM 4.3 MMOL/L (3.5-5.1); SODIUM LEVEL 139.0 MMOL/L (136-145)
[2025-02-27 17:10] LABS: TOTAL 25(OH) VITAMIN D 67.3 NG/ML (20.0-100.0)
[2025-02-27 18:50] LABS: ESTIMATED AVERAGE GLUCOSE 123.0 MG/DL (60-110)
== END ==
LOC: M PLALAB 14:21
PROVIDERS: ATTEND Orthopaedic Surgery
DX: M17.12 Unilateral primary osteoarthritis, left knee (principal); Z79.899 Other long term (current) drug therapy

== ENCOUNTER → 2025-03-14 | Outpatient (CLI) | payer MEDICARE | LOC: M CARPUL 10:13 | PROVIDERS: ATTEND Family Medicine | DX: I35.8 Other nonrheumatic aortic valve disorders (principal) ==

== ENCOUNTER → 2025-04-09 | Outpatient (CLI) | payer MEDICARE ==
[2025-04-09 08:10] LABS: BASO # 0.0 10^3/uL (0.0-0.2); BASO % 0.3 % (0.0-1.0); EOS # 0.1 10^3/uL (0.0-0.5); EOS % 1.8 % (0.0-3.0); LYMPH # 2.1 10^3/uL (1.5-5.0); LYMPH % 26.8 % (24.0-44.0); MONO # 0.6 10^3/uL (0.0-0.8); MONO % 7.5 % (2.0-8.0); NEUTROPHILS # 5.0 10^3/uL (1.5-8.5); NEUTROPHILS % 63.2 % (36.0-66.0); PLATELET COUNT, AUTOMATED 354 10^3/uL (150-450)
[2025-04-09 08:34] LABS: ALT/SGPT 29 U/L (7.0-40); AST/SGOT 26 U/L (<34); CALCIUM LEVEL 9.0 MG/DL (8.3-10.6); CARBON DIOXIDE LEVEL 28 MMOL/L (20-31); CHLORIDE LEVEL 103 MMOL/L (98-107); CHOLESTEROL LEVEL 197 MG/DL (<200); CHOLESTEROL RISK RATIO 4.67 (<5); CREATININE FOR GFR 0.70 MG/DL (0.55-1.30); GLOMERULAR FILTRATION RATE > 90.0 (>45); LDL CHOLESTEROL 135.9 MG/DL (<100); NON-HDL-C 154.9 MG/DL; POTASSIUM SERUM 4.5 MMOL/L (3.5-5.1); SODIUM LEVEL 138 MMOL/L (136-145); TRIGLYCERIDES LEVEL 95 MG/DL (<150)
[2025-04-09 08:35] LABS: TOTAL 25(OH) VITAMIN D 70.6 NG/ML (20.0-100.0)
[2025-04-09 08:36] LABS: FREE T4 1.24 NG/DL (0.89-1.76)
== END ==
LOC: M LAB 07:23
PROVIDERS: ATTEND Family Medicine
DX: I10 Essential (primary) hypertension (principal); E55.9 Vitamin D deficiency, unspecified

== ENCOUNTER → 2025-04-25 | Outpatient (CLI) | payer MEDICARE | LOC: M WHC 08:13 | PROVIDERS: ATTEND Family Medicine | DX: Z01.818 Encounter for other preprocedural examination (principal); M17.12 Unilateral primary osteoarthritis, left knee; Z12.31 Encounter for screening mammogram for malignant neoplasm of breast; R92.323 Mammographic fibroglandular density, bilateral breasts ==

== ENCOUNTER → 2025-04-25 | Outpatient (REF) | payer MEDICARE | LOC: M LAB REF 17:05 | PROVIDERS: ATTEND Orthopaedic Surgery | DX: Z01.818 Encounter for other preprocedural examination (principal); M17.12 Unilateral primary osteoarthritis, left knee ==